=== PATIENT | female | born 1935 | race Caucasian/White ===

== ENCOUNTER 2016-10-31 12:41 | Outpatient (CLI) | payer MEDICARE, OTHER, MEDICAID ==
[2016-10-31 18:00] LABS: BASOPHILS % (AUTO) 0.4 %; EOSINOPHILS # (AUTO) 0.2 10^3/uL (0.0-0.7); EOSINOPHILS % (AUTO) 1.6 %; HCT - HEMATOCRIT 38.5 % (37.0-47.0); HGB - HEMOGLOBIN 12.8 g/dL (12.0-16.0); LYMPHOCYTES % (AUTO) 19.7 %; MEAN CORPUSCULAR HEMOGLOBIN 28.9 pg (27.0-31.0); MEAN CORPUSCULAR HGB CONC 33.3 g/dL (32.0-36.0); MEAN CORPUSCULAR VOLUME 86.7 fL (81.0-99.0); MEAN PLATELET VOLUME 10.5 fL (7.9-10.8); MONOCYTES # (AUTO) 0.9 10^3/uL (0.0-1.0); MONOCYTES % (AUTO) 8.7 %; NEUTROPHILS # (AUTO) 7.1 10^3/uL (1.5-6.6); NEUTROPHILS % (AUTO) 69.6 %; RED BLOOD COUNT 4.44 10^6/uL (4.20-5.40); RED CELL DISTRIBUTION WIDTH 13.2 % (12.0-15.0); UNCORRECTED WHITE BLOOD COUNT 10.2 x10^3/uL; WHITE BLOOD COUNT 10.2 x10^3/uL (4.8-10.8)
[2016-10-31 18:09] LABS: ALBUMIN/GLOBULIN RATIO 1.3 (1.0-2.2); BILIRUBIN,TOTAL 0.8 mg/dL (0.2-1.0); POTASSIUM 3.9 mmol/L (3.5-5.0); TOTAL PROTEIN 7.5 g/dL (6.7-8.2)
== END 2016-10-31 12:42 | disposition home or self-care (01) ==
LOC: LAB.F 12:41
PROVIDERS: ATTEND Physician Assistant Medical
DX: I10 Essential (primary) hypertension (principal)
CPT/HCPCS: 36415; 80053; 85025

== ENCOUNTER 2016-12-07 14:10 | Outpatient (CLI) | payer MEDICARE, OTHER ==
[2016-12-07 18:26] LABS: CHOL/HDL RATIO 2.5 (<4.4); CHOLESTEROL 160 mg/dL; HDL CHOLESTEROL 65 mg/dL; LDL/HDL RATIO 1.1 (<4.4); TRIGLYCERIDES 115 mg/dL; VLDL CHOLESTEROL 23 mg/dL
== END 2016-12-07 14:11 | disposition home or self-care (01) ==
LOC: LAB.F 14:10
PROVIDERS: ATTEND Internal Medicine
DX: E78.00 Pure hypercholesterolemia, unspecified (principal); R53.83 Other fatigue
CPT/HCPCS: 36415; 80061; 84443

== ENCOUNTER 2017-06-20 17:43 | Outpatient (CLI) | payer MEDICARE, OTHER | END 2017-06-20 17:44 | disposition critical access hospital (66) | LOC: EMS 17:43 | PROVIDERS: ATTEND Surgery | DX: R55 Syncope and collapse (principal); M25.552 Pain in left hip; R29.6 Repeated falls; S01.01XA Laceration without foreign body of scalp, initial encounter; W18.39XA Other fall on same level, initial encounter; Y93.01 Activity, walking, marching and hiking; Y92.009 Unspecified place in unspecified non-institutional (private) residence as the place of occurrence of the external cause | CPT/HCPCS: A0425; A0429 ==

== ENCOUNTER 2017-06-20 18:02 | Inpatient (IN) | payer MEDICARE, OTHER ==
[2017-06-20] MEDS ORDERED: BUFFERED LIDOCAINE 10 ML SYRINGE SUBQ STA (18:16)
[2017-06-20] MEDS ORDERED: MORPHINE 2 MG/ML CARPUJECT IVP STA ×2 (18:16→20:13)
[2017-06-20] MEDS ORDERED: TETANUS/DIPHTHERIA/PERTUSSIS 0.5 ML SYRINGE IM ONE (18:16)
--- NOTE | 2017-06-20 18:21 | ED Physician Documentation ---
History of Present Illness - Stated complaint Stated Complaint: SYNCOPE/HEAD INJ - History obtained from History obtained from: Patient, Family, EMS - History of Present Illness Timing: Other (81-year-old woman with history of Parkinson's has been having frequent syncopal episodes today. She had a syncopal episode in the garage, she does not remember going down, she must landed on her left hip it is very painful and she also has a cut on the back of her head.) Review of Systems Ten Systems: 10 systems reviewed and negative Constitutional: denies: Fever, Chills Cardiac: denies: Chest pain / pressure, Palpitations Respiratory: denies: Dyspnea, Cough GI: denies: Abdominal Pain, Nausea, Vomiting PD PAST MEDICAL HISTORY - Past Medical History Past Medical History: Yes Cardiovascular: Hypertension Neuro: Parkinson's - Allergies Allergies/Adverse Reactions: Allergies Allergy/AdvReac Type Severity Reaction Status Date / Time latex Allergy Intermediate Hives Verified 06/20/17 18:19 - Social History Does the pt smoke?: No Does the pt drink ETOH?: No Does the pt have substance abuse?: No - Family History Family history: reports: Non contributory PD ED PE NORMAL - Vitals Vital signs reviewed: Yes - General General: Alert and oriented X 3, No acute distress - HEENT HEENT: PERRL, EOMI, Other (2 cm laceration on the left side of the occiput) - Neck Neck: Supple, no meningeal sign, No bony TTP - Cardiac Cardiac: RRR, No murmur - Respiratory Respiratory: No respiratory distress, Clear bilaterally - Abdomen Abdomen: Normal bowel sounds, Soft, Non tender - Extremities Extremities: Other (Left hip is held flexed and is very tender and has a lot of pain with external rotation.) - Neuro Neuro: Alert and oriented X 3 Eye Opening: Spontaneous Motor: Obeys Commands Verbal: Oriented GCS Score: 15 - Psych Psych: Normal mood Results - Vitals Vitals: Vital Signs - 24 hr 06/20/17 06/20/17 06/20/17 18:09 20:35 20:36 Temperature 36.5 C Heart Rate 66 72 66 Respiratory 18 14 Rate Blood Pressure 162/75 H 158/75 H O2 Saturation 96 86 L 96 06/20/17 21:09 Temperature Heart Rate 73 Respiratory Rate Blood Pressure O2 Saturation 95 Oxygen O2 Source Nasal cannula - EKG (time done) 2117 Rate: Rate (enter#) (70) Rhythm: NSR [place]: Normal Intervals: Normal OR QRS: LVH Ischemia: Normal ST segments Computer interpretation: Agree with computer - Labs Labs: Laboratory Tests 06/20/17 06/20/17 06/20/17 18:35 18:35 18:35 WBC 10.9 H RBC 4.07 L Hgb 12.0 Hct 35.7 L MCV 87.8 MCH 29.5 MCHC 33.6 RDW 13.6 Plt Count 221 MPV 9.4 Neut # 8.9 H Lymph # 1.2 L [place] # 0.7 Eos # 0.1 Baso # 0.1 Absolute Nucleated RBC 0.00 Nucleated RBC % 0.0 PT 12.1 INR 1.1 Sodium Potassium Chloride Carbon Dioxide Anion Gap BUN Creatinine Estimated GFR (MDRD) Glucose Calcium Total Bilirubin AST ALT Alkaline Phosphatase Total Protein Albumin Globulin Albumin/Globulin Ratio Lipase Blood Type O POSITIVE Antibody Screen NEGATIVE 06/20/17 18:35 WBC RBC Hgb Hct MCV MCH MCHC RDW Plt Count MPV Neut # Lymph # [place] # Eos # Baso # Absolute Nucleated RBC Nucleated RBC % PT INR Sodium 136 Potassium 3.1 L Chloride 100 L Carbon Dioxide 26 Anion Gap 10.0 BUN 22 H Creatinine 0.9 Estimated GFR (MDRD) 60 L Glucose 126 H Calcium 9.5 Total Bilirubin 1.0 AST 23 ALT < 10 L Alkaline Phosphatase 57 Total Protein 7.0 Albumin 4.2 Globulin 2.8 Albumin/Globulin Ratio 1.5 Lipase 15 L Blood Type Antibody Screen - Rads (name of study) Headt CT Radiology: EMP read contemporaneously (NAD) B hips Radiology: EMP read contemporaneously (Left obturator ring fracture) Procedures - Laceration (location) Scalp occiput Length in cm: 2 Wound type: Linear Anesthesia: Lidocaine 1%, With bicarb Wound Preparation: Irrigated copiously NS Skin layer closure: [place] (6) Other: Tetanus booster given Complexity: Simple PD MEDICAL DECISION MAKING - ED course ED course: 81-year-old woman with recurrent syncopal episodes presents after a ground- level fall with significant left hip pain. X-ray demonstrates a pelvic fracture but no hip fracture. Head CT negative. Her scalp was stapled and I spoke with Dr. Fonseca, the on-call surgeon at 9 PM and he will see in consultation and I spoke with Dr. Walton the hospitalist for admission at 9:08 PM. Departure - Departure Disposition: 66 [facility] DC/Xfer Clinical Impression: Head injury consultation, Parkinson disease Syncope Qualifiers: Syncope type: unspecified Qualified Code(s): R55 - Syncope and collapse Scalp laceration Qualifiers: Encounter type: initial encounter Qualified Code(s): S01.01XA - Laceration without foreign body of scalp, initial encounter Pelvic fracture Qualifiers: Encounter type: initial encounter Pelvic bone location: pubis Sublocation of pubis: superior rim Fracture type: closed Laterality: left Qualified Code(s): S32.512A - Fracture of superior rim of left pubis, initial encounter for closed fracture Condition: Stable
[2017-06-20 18:41] LABS: BASOPHILS # (AUTO) 0.1 10^3/uL (0.0-0.1); BASOPHILS % (AUTO) 0.5 %; EOSINOPHILS # (AUTO) 0.1 10^3/uL (0.0-0.7); EOSINOPHILS % (AUTO) 1.1 %; LYMPHOCYTES # (AUTO) 1.2 10^3/uL (1.5-3.5); LYMPHOCYTES % (AUTO) 10.8 %; MEAN CORPUSCULAR HEMOGLOBIN 29.5 pg (27.0-31.0); MEAN CORPUSCULAR HGB CONC 33.6 g/dL (32.0-36.0); MEAN CORPUSCULAR VOLUME 87.8 fL (81.0-99.0); MEAN PLATELET VOLUME 9.4 fL (7.9-10.8); MONOCYTES # (AUTO) 0.7 10^3/uL (0.0-1.0); MONOCYTES % (AUTO) 6.1 %; NEUTROPHILS # (AUTO) 8.9 10^3/uL (1.5-6.6); NEUTROPHILS % (AUTO) 81.5 %; PLT - PLATELET COUNT 221 10^3/uL (130-450); RED BLOOD COUNT 4.07 10^6/uL (4.20-5.40); RED CELL DISTRIBUTION WIDTH 13.6 % (12.0-15.0); WHITE BLOOD COUNT 10.9 x10^3/uL (4.8-10.8)
[2017-06-20 18:46] LABS: INR 1.1 (0.8-1.2); PT - PROTHROMBIN TIME 12.1 secs (9.9-12.6)
[2017-06-20 19:01] LABS: ALBUMIN 4.2 g/dL (3.2-5.5); ALBUMIN/GLOBULIN RATIO 1.5 (1.0-2.2); ALKALINE PHOSPHATASE 57 IU/L (42-121); ALT ALANINE AMINOTRANSFERASE < 10 IU/L (10-60); AST ASPARTATE AMINOTRANSFERASE 23 IU/L (10-42); BUN - BLOOD UREA NITROGEN 22 mg/dL (6-20); CALCIUM 9.5 mg/dL (8.5-10.3); CARBON DIOXIDE - CO2 26 mmol/L (21-32); CHLORIDE 100 mmol/L (101-111); CREATININE 0.9 mg/dL (0.4-1.0); GFR - MDRD 60 (>89); GLUCOSE 126 mg/dL (70-100); LIPASE 15 U/L (22-51); SODIUM 136 mmol/L (135-145)
[2017-06-20] MEDS ORDERED: D5NS W/20 MEQ KCL 1,000 ML IV STA (19:04)
[2017-06-20] MEDS ORDERED: POTASSIUM CHLOR 10 MEQ/100 ML 10 MEQ/100 ML BAG IV ONE (19:05)
--- NOTE | 2017-06-20 19:35 | CT Report ---
EXAM: CT HEAD EXAM DATE: 06/20/2017 07:23 PM. CLINICAL HISTORY: Fall. Injured back of head against step. COMPARISON: None. TECHNIQUE: Multiaxial CT images were obtained from the foramen magnum to the vertex. Reformats: Coron al. IV contrast: None. In accordance with CT protocol optimization, one or more of the following dose reduction techniques w ere utilized for this exam: automated exposure control, adjustment of mA and/or KV based on patient s ize, or use of iterative reconstructive technique. FINDINGS: Parenchyma: No intraparenchymal hemorrhage. 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 Carr-white differentiation is distinct. Mild chronic microangiopathic white matter changes are evident. Extraaxial Spaces: Normal for age. No subdural or epidural collections identified. Ventricles: The ventricles and cortical sulci are enlarged, consistent with age-related tissue loss. Sinuses and orbits: Mucosal thickening in the sphenoid sinus, otherwise the imaged paranasal sinuses, orbits, and mastoids show no significant abnormality. Bones: No evidence of fracture or calvarial defect. Other: Small posterior scalp hematoma noted. IMPRESSION: Generalized age-related cortical atrophic changes without evidence of acute intracranial abnormality or skull fracture. [facility] Referring Provider Line: [phone] SITE ID: [id number]
--- NOTE | 2017-06-20 20:48 | XRAY Preliminary Report ---
Exam: XR HIPS 2V BILAT IMPRESSION: 1. Mildly displaced left obturator ring fractures. 2. Old right femoral fracture fixation with lateral heterotopic ossification. [facility] SITE ID: [id number]
--- NOTE | 2017-06-20 20:48 | XRAY Report ---
EXAM: BILATERAL HIP RADIOGRAPHY EXAM DATE: 06/20/2017 08:16 PM. CLINICAL HISTORY: Fall. Hip pain. COMPARISON: None. TECHNIQUE: 2 views each. FINDINGS: Bones: Mild displaced obturator ring fractures on the left. Prior right femoral fracture fixation. No other bony abnormalities identified. Right Hip: Normal. No dislocation. The hip joint space is preserved. Left Hip: Normal. No dislocation. The hip joint space is preserved. Soft Tissues: Heterotopic ossification on the right. IMPRESSION: 1. Mildly displaced left obturator ring fractures. 2. Old right femoral fracture fixation with lateral heterotopic ossification. [facility] Referring Provider Line: [phone] SITE ID: [id number]
[2017-06-20] MEDS ORDERED: ONDANSETRON 4 MG/2 ML VIAL IVP PRN (21:20)
[2017-06-20] MEDS ORDERED: ZOLPIDEM 5 MG TABLET PO PRN (21:20)
[2017-06-20] MEDS ORDERED: KETOROLAC 15 MG/ML VIAL IVP PRN (21:27)
[2017-06-20] MEDS: SODIUM CHLORIDE FLUSH 0.9% 10 ML SYRINGE IVP SCH (22:28)
[2017-06-20] MEDS: ACETAMINOPHEN 500 MG TABLET PO SCH (22:37)
[2017-06-20 23:15] LABS: BILIRUBIN,URINE NEGATIVE (NEGATIVE); GLUCOSE, URINE (UA) NEGATIVE (NEGATIVE); KETONES,URINE (UA) 15 mg/dL (NEGATIVE); LEUKOCYTE ESTERASE, URINE NEGATIVE (NEGATIVE); NITRITE,URINE NEGATIVE (NEGATIVE); OCCULT BLOOD,URINE NEGATIVE (NEGATIVE); PROTEIN,URINE TRACE mg/dL (NEGATIVE); UROBILINOGEN,URINE 0.2 (NORMAL) E.U./dL (NORMAL)
[2017-06-20 23:26] LABS: CLARITY,URINE CLEAR (CLEAR)
--- NOTE | 2017-06-21 03:11 | HISTORY & PHYSICAL EXAMINATION ---
DATE OF SERVICE: 06/20/2017 Physician: Michela Walton MD CHIEF COMPLAINT: Syncope and fall. SOURCE OF HISTORY: The patient was "foggy", poor historian. Her daughter at the bedside provided detailed history. HISTORY OF PRESENT ILLNESS: The patient is an 81-year-old, white female with past medical history of hypertension, osteoporosis and Parkinson disease. Two weeks ago, she was started on amantadine by her neurologist to better treat her parkinsonian symptoms. A few days after she started to take this new medication, she developed altered mental status, had difficulty concentrating, and the way her daughter describes she appeared "foggy" with her mentation. Usually she is alert, oriented, and a sharp thinker. Besides the altered mental status, the patient also started to develop falls. During the past 10 days, she fell 4 times. Before starting the amantadine, she did not have a significant history of falls or altered mental status and the start of these symptoms coincided with the new medication. Due to these problems, they actually called the patient's neurologist earlier on June 20, and were recommended to stop the amantadine. Beside the amantadine, the patient takes Sinemet and multiple other medications; however, they could not provide a medication list. Regarding the circumstances leading to admission, the daughter described that they were returning home and when the patient was getting out of the car, was trying to walk to the home and at that time she was observed with a blank stare, lost consciousness, twisted, holding onto her walker and fell, hitting the ground with the back of her head. She did develop a small laceration and was brought to the ER for further evaluation. Upon presentation to the ER, the patient was hemodynamically stable. She had minor laboratory abnormalities including potassium of 3.1, white blood cell count of 10.9, BUN 22. CT scan of the brain showed no acute intracranial abnormality. X-ray of the pelvis showed pelvic fracture which was described as mildly displaced left obturator ring fracture. Old right femoral fracture with fixation was also seen. At the ER, the patient received sutures for scalp laceration, received potassium replacement. The ER physician, Dr. Ryan, contacted the covering orthopedic surgeon, Dr. Bates, who will see the patient in consultation; however, most likely will recommend conservative management. REVIEW OF SYMPTOMS: The patient denied past history of cardiac problems, although she mentioned that once her heart was evaluated and some abnormality was found; however, she could not further specify. She denied shortness of breath, chest pain or palpitations. Did not report lymphedema. Denied nausea, vomiting or diarrhea, although reported recently worsening incontinence. Denied symptoms of dysuria. I completed 12-point review; other than the symptoms listed above at history of present illness, there was no complaint. PAST MEDICAL HISTORY: Hypertension, osteoporosis, Parkinson disease. OUTPATIENT MEDICATIONS: Medication list is not available. Code status was discussed with the patient. She wanted to be FULL CODE. FAMILY HISTORY: Negative for Parkinson disease. SOCIAL HISTORY: The patient lives with her daughter who assists her with activities of daily living. She ambulates with a walker. She is a nonsmoker, used to smoke in her 30s, but not since then. PRIMARY CARE PHYSICIAN: Andrew Costa ALLERGIES: LATEX. ER workup reviewed per electronic medical record. PHYSICAL EXAMINATION VITAL SIGNS: Temperature 36.5 Celsius, heart rate in the 70s, blood pressure 160/70, oxygen saturation 96% on room air. GENERAL: The patient is a well-developed, frail, elderly female who was not in distress. NEUROLOGIC: The patient had symmetric face. Her speech was slow. She had to stop multiple times and had somewhat stuttering speech; however, she answered my questions mostly appropriately. There was no focal lateralizing sign. PSYCHIATRIC: Appeared sedated, cooperative. CARDIOVASCULAR: S1, S2. Regular. No pathologic murmur. RESPIRATORY: Clear to auscultation without wheezes or crackles. ABDOMEN: Soft, benign, nontender. Normal bowel tones. LYMPHATIC: No lymphedema. MUSCULOSKELETAL: Left-sided pelvic tenderness and pain with decreased range of motion. ASSESSMENT AND PLAN, ACTIVE ISSUES/DIAGNOSES 1. Pelvic ring fracture on the left side, status post fall. For this problem , the patient will be evaluated by Orthopedic Surgery. For now, she appears more impaired than before and she was already impaired due to advanced age, Parkinson disease, needing to use a walker to ambulate, and requiring care and assistance with activities of daily living. Therefore, at this point it is fair to say that the patient does have self -care deficit due to her acute pelvic fracture. She is unable to ambulate and will not be able to take care of herself. After orthopedic surgery evaluation, she will need physical therapy, occupational therapy, and social work for discharge planning. She will likely need to discharge to an extended care facility for rehabilitation. Regarding this problem, we will order pain control/symptom control, provide supportive care. We will keep the patient on bedrest, nonweightbearing status until formal orthopedic evaluation. I suspect, however, that there will be conservative management. 2. Regarding fall and syncope, most likely this is medication induced secondary to amantadine. At the same time, to avoid premature closure, we are going to check urinalysis, we will monitor the patient on telemetry and check an echocardiogram. Notably, CT scan of the brain was negative, showed no stroke. 3. Hypokalemia, potassium was already replaced in the ER. PLAN AND ORDERS: Patient is getting admitted as inpatient. The above problems will be addressed as listed above. In addition, the patient will receive DVT prophylaxis. Further plan will depend on the clinical course. ATTESTATION: I certify in good chiqui that this patient will need to be hospitalized for more than 48 hours; however, it is reasonable to expect that she gets discharged within 96 hours to another facility or back to her home. Time spent in the care of this patient was 50 minutes. cc: Andrew Costa MD TD: 06/21/2017 03:07 [id number]
[2017-06-21] MEDS: SODIUM CHLORIDE FLUSH 0.9% 10 ML SYRINGE IVP SCH ×3 (04:34→21:46)
[2017-06-21] MEDS: ACETAMINOPHEN 500 MG TABLET PO SCH ×3 (07:19→21:38)
[2017-06-21] MEDS ORDERED: POTASSIUM CHLORIDE 20 MEQ TABLET PO ONE (07:44)
[2017-06-21] MEDS: MORPHINE 2 MG/ML CARPUJECT IVP PRN (08:34)
[2017-06-21] MEDS: oxyCODONE 5 MG TABLET PO PRN ×4 (08:35→21:41)
[2017-06-21] MEDS: HEPARIN 5,000 UNIT/ML VIAL SUBQ SCH ×2 (08:35→21:34)
[2017-06-21] MEDS: POLYETHYLENE GLYCOL 3350 17 GM PACKET PO SCH (08:36)
[2017-06-21 09:47] LABS: BASOPHILS % (AUTO) 0.3 %; EOSINOPHILS # (AUTO) 0.1 10^3/uL (0.0-0.7); EOSINOPHILS % (AUTO) 0.5 %; HGB - HEMOGLOBIN 10.4 g/dL (12.0-16.0); LYMPHOCYTES # (AUTO) 1.3 10^3/uL (1.5-3.5); LYMPHOCYTES % (AUTO) 10.1 %; MEAN CORPUSCULAR HGB CONC 34.3 g/dL (32.0-36.0); MEAN CORPUSCULAR VOLUME 87.5 fL (81.0-99.0); MEAN PLATELET VOLUME 9.3 fL (7.9-10.8); MONOCYTES # (AUTO) 0.7 10^3/uL (0.0-1.0); MONOCYTES % (AUTO) 5.6 %; NEUTROPHILS % (AUTO) 83.5 %; PLT - PLATELET COUNT 171 10^3/uL (130-450); RED BLOOD COUNT 3.48 10^6/uL (4.20-5.40); RED CELL DISTRIBUTION WIDTH 13.6 % (12.0-15.0); WHITE BLOOD COUNT 13.1 x10^3/uL (4.8-10.8)
[2017-06-21 09:58] LABS: ALBUMIN 3.4 g/dL (3.2-5.5); ALBUMIN/GLOBULIN RATIO 1.4 (1.0-2.2); ALKALINE PHOSPHATASE 49 IU/L (42-121); ALT ALANINE AMINOTRANSFERASE < 10 IU/L (10-60); AST ASPARTATE AMINOTRANSFERASE 25 IU/L (10-42); BILIRUBIN,TOTAL 1.2 mg/dL (0.2-1.0); BUN - BLOOD UREA NITROGEN 23 mg/dL (6-20); CALCIUM 8.6 mg/dL (8.5-10.3); CARBON DIOXIDE - CO2 26 mmol/L (21-32); CHLORIDE 100 mmol/L (101-111); CREATININE 0.9 mg/dL (0.4-1.0); GFR - MDRD 60 (>89); GLUCOSE 129 mg/dL (70-100); MAGNESIUM 1.5 mg/dL (1.7-2.8); SODIUM 134 mmol/L (135-145); TOTAL PROTEIN 5.8 g/dL (6.7-8.2)
--- NOTE | 2017-06-21 14:24 | PROVIDER PROGRESS NOTE ---
Subjective - Prog Note Date Prog Note Date: 06/21/17 - Subjective Pt reports feeling: Improved Subjective: pt state she feel better than yesterday. No fever, chill, cough, chest pain, shortness of breath. Current Medications - Current Medications Current Medications: Active Medications Acetaminophen (Tylenol) 1,000 mg PO TID [facility] Last Admin: 06/21/17 12:50 Dose: 1,000 mg Atorvastatin Calcium (Lipitor) 10 mg PO 2100 [facility] Carbidopa/Levodopa (Sinemet 25 Mg/250 Mg) tab PO QID [facility] Heparin Sodium (Porcine) () 5,000 unit SUBQ BID [facility] Last Admin: 06/21/17 08:35 Dose: 5,000 unit Hydralazine HCl (Apresoline) 25 mg PO TID [facility] Ketorolac Tromethamine (Toradol Inj) 15 mg IVP BID PRN PRN Reason: PAIN Stop: 06/25/17 21:59 Last Admin: 06/21/17 02:17 Dose: 15 mg Lisinopril (Zestril) 20 mg PO DAILY [facility] Magnesium Oxide (Mag Ox) 400 mg PO ONCE [facility] Morphine Sulfate (Morphine (Carpuject)) 2 mg IVP Q2HR PRN PRN Reason: Pain 8 to 10 Last Admin: 06/21/17 08:34 Dose: 2 mg Ondansetron HCl (Zofran Inj) 4 mg IVP Q6HR PRN PRN Reason: Nausea / Vomiting Oxycodone HCl (Roxicodone) 5 mg PO Q4HR PRN PRN Reason: Pain 5 to 7 Last Admin: 06/21/17 12:50 Dose: 5 mg Polyethylene Glycol (Miralax) 17 gm PO DAILY [facility] Last Admin: 06/21/17 08:36 Dose: 17 gm Potassium Chloride (Micro-K) 10 meq PO TID [facility] Sodium Chloride (Normal Saline Flush 0.9%) 10 ml IVP PRN PRN PRN Reason: NEEDED PER PROVIDER ORDERS Sodium Chloride (Normal Saline Flush 0.9%) 10 ml IVP Q8HR [facility] Last Admin: 06/21/17 12:51 Dose: 10 ml Triamterene/HCTZ (Dyazide) cap PO DAILY [facility] Zolpidem Tartrate (Ambien) 5 mg PO QPM PRN PRN Reason: Insomnia Atorvastatin [Lipitor] 10 mg PO 2100 06/21/17 Carbidopa/Levodopa [Carbidopa-Levodopa 25-250 Tab] 1 each PO QID 06/21/17 Lisinopril [Lisinopril] 20 mg PO DAILY 06/21/17 Potassium Chloride 10 meq PO TID 06/21/17 Triamterene/Hydrochlorothiazid [Triamterene-Hctz 37.5-25 mg Cp] 1 each PO DAILY 06/21/17 hydrALAZINE [Apresoline] 25 mg PO TID 06/21/17 Objective - Vital Signs/Intake & Output Reviewed Vital Signs: Yes Vital Signs: Vital Signs x48h Temp Pulse Resp BP Pulse Ox 06/21/17 13:54 36.3 C L 66 18 170/70 H 96 Intake & Output: Intake & Output 06/18/17 06/19/17 06/20/17 06/21/17 23:59 23:59 23:59 23:59 Intake Total 100 1430 Output Total 450 Balance 100 980 - Objective General Appearance: positive: No acute distress, Alert. negative: Lethargic Eyes Bilateral: positive: Normal inspection, PERRL, No lid inflammation, Conjunctivae nml ENT: positive: ENT inspection nml, Pharynx nml, No signs of dehydration. negative: Purulent nasal drainage, Pharyngeal erythema, Oral lesions Neck: positive: Nml inspection, Thyroid nml, No JVD, Trachea midline. negative : Thyromegaly, Lymphadenopathy (R), Lymphadenopathy (L), Stiff neck, Carotid bruit, Swelling/bruising, Tracheal deviation Respiratory: positive: Chest non-tender, No respiratory distress, Breath sounds nml. negative: Wheezes, Rales, Rhonchi Cardiovascular: positive: Regular rate & rhythm, No murmur, No gallop. negative : Irregularly irregular, Extrasystoles, Tachycardia, Bradycardia, Systolic murmur, Diastolic murmur Peripheral Pulses: 2+ Radial (R), 2+ Radial (L), 2+ Dorsalis pedis (R), 2+ Dorsalis pedis (L) Abdomen: positive: Non-tender, No organomegaly, Nml bowel sounds, No distention. negative: Tenderness, Guarding, Rebound Back: positive: Nml inspection. negative: CVA tenderness (R), CVA tenderness (L ) Skin: positive: Color nml, No rash, Warm, Dry. negative: Cyanosis, Diaphoresis , Pallor Extremities: positive: Non-tender, Full ROM, Nml appearance. negative: Calf tenderness, Joint swelling, Ayala's sign/cords Neurologic/Psychiatric: positive: Sensation nml, Mood/affect nml. negative: Sensory loss, Facial droop, Slurred/abnml speech, Depressed mood/affect - Lab Results Fish Bones: 06/21/17 09:35 06/21/17 09:35 Other Labs: Lab Results x24hrs 06/21/17 06/21/17 06/20/17 Range/Units 09:35 09:35 23:00 WBC 13.1 H (4.8-10.8) x10^3/uL RBC 3.48 L (4.20-5.40) 10^6/uL Hgb 10.4 L (12.0-16.0) g/dL Hct 30.4 L (37.0-47.0) % MCV 87.5 (81.0-99.0) fL MCH 30.0 (27.0-31.0) pg MCHC 34.3 (32.0-36.0) g/dL RDW 13.6 (12.0-15.0) % Plt Count 171 (130-450) 10^3/uL MPV 9.3 (7.9-10.8) fL Neut # 11.0 H (1.5-6.6) 10^3/uL Lymph # 1.3 L (1.5-3.5) 10^3/uL [place] # 0.7 (0.0-1.0) 10^3/uL Eos # 0.1 (0.0-0.7) 10^3/uL Baso # 0.0 (0.0-0.1) 10^3/uL Absolute Nucleated RBC 0.00 x10^3/uL Nucleated RBC % 0.0 /100WBC Sodium 134 L (135-145) mmol/L Potassium 3.2 L (3.5-5.0) mmol/L Chloride 100 L (101-111) mmol/L Carbon Dioxide 26 (21-32) mmol/L Anion Gap 8.0 (6-13) BUN 23 H (6-20) mg/dL Creatinine 0.9 (0.4-1.0) mg/dL Estimated GFR (MDRD) 60 L (>89) Glucose 129 H (70-100) mg/dL Calcium 8.6 (8.5-10.3) mg/dL Magnesium 1.5 L (1.7-2.8) mg/dL Total Bilirubin 1.2 H (0.2-1.0) mg/dL AST 25 (10-42) IU/L ALT < 10 L (10-60) IU/L Alkaline Phosphatase 49 (42-121) IU/L Total Protein 5.8 L (6.7-8.2) g/dL Albumin 3.4 (3.2-5.5) g/dL Globulin 2.4 (2.1-4.2) g/dL Albumin/Globulin Ratio 1.4 (1.0-2.2) Urine Color YELLOW Urine Clarity CLEAR (CLEAR) Urine pH 7.0 (5.0-7.5) PH Ur Specific [place] 1.025 (1.002-1.030) Urine Protein TRACE (NEGATIVE) mg/dL Urine Glucose (UA) NEGATIVE (NEGATIVE) mg/dL Urine Ketones 15 H (NEGATIVE) mg/dL Urine Occult Blood NEGATIVE (NEGATIVE) Urine Nitrite NEGATIVE (NEGATIVE) Urine Bilirubin NEGATIVE (NEGATIVE) Urine Urobilinogen 0.2 (NORMAL) (NORMAL) E.U./dL Ur Leukocyte Esterase NEGATIVE (NEGATIVE) Ur Microscopic Review NOT INDICATED Urine Culture Comments NOT INDICATED Assessment/Plan - Problem List (1) Pelvic fracture Impression: consult with orthopedics, will follow up pain control PT/OT evaluation and treatment Qualifiers: Encounter type: initial encounter Pelvic bone location: pubis Sublocation of pubis: superior rim Fracture type: closed Laterality: left Qualified Code(s): S32.512A - Fracture of superior rim of left pubis, initial encounter for closed fracture (2) Fall Impression: fall precaution consult social work, follow up consult with PT/OT, follow up (3) Syncope Impression: pt state the fall happened after she take the new Parkinson medication, and it cause her dizziness and pre-syncope/syncope ECHO, follow up tele, vital monitor EKG PRN (4) HTN (hypertension) Impression: resume home meds vital monitor (5) Parkinson disease Impression: resume home meds Sinemet, it seems pt can tolerate the meds per family state. (6) Hypokalemia Impression: chronic, resume potassium replacement of potassium recheck lab, follow up
[2017-06-21] MEDS ORDERED: MAGNESIUM OXIDE 400 MG TABLET PO SCH (15:00)
[2017-06-21] MEDS: POTASSIUM CHLORIDE 10 MEQ CAPSULE PO SCH ×2 (15:06→21:43)
[2017-06-21] MEDS: hydrALAZINE 25 MG TABLET PO SCH ×2 (15:06→21:42)
[2017-06-21] MEDS: TRIAMT/HCTZ 37.5 MG/25 MG CAPSULE PO SCH (15:07)
[2017-06-21] MEDS: CARBIDOPA/LEVODOPA 25 MG/250 MG TABLET PO SCH ×2 (17:09→21:42)
[2017-06-21] MEDS: ATORVASTATIN 10 MG TABLET PO SCH (21:41)
[2017-06-22] MEDS: oxyCODONE 5 MG TABLET PO PRN ×3 (04:52→16:54)
[2017-06-22] MEDS: SODIUM CHLORIDE FLUSH 0.9% 10 ML SYRINGE IVP SCH ×3 (04:52→20:23)
[2017-06-22] MEDS: hydrALAZINE 25 MG TABLET PO SCH ×3 (04:52→21:20)
[2017-06-22] MEDS: ACETAMINOPHEN 500 MG TABLET PO SCH ×3 (04:52→21:21)
[2017-06-22] MEDS: POTASSIUM CHLORIDE 10 MEQ CAPSULE PO SCH ×3 (04:52→21:22)
[2017-06-22 05:06] LABS: BASOPHILS # (AUTO) 0.1 10^3/uL (0.0-0.1); BASOPHILS % (AUTO) 0.7 %; EOSINOPHILS # (AUTO) 0.4 10^3/uL (0.0-0.7); EOSINOPHILS % (AUTO) 3.6 %; HGB - HEMOGLOBIN 10.7 g/dL (12.0-16.0); LYMPHOCYTES # (AUTO) 1.6 10^3/uL (1.5-3.5); LYMPHOCYTES % (AUTO) 14.9 %; MEAN CORPUSCULAR HEMOGLOBIN 30.2 pg (27.0-31.0); MEAN CORPUSCULAR HGB CONC 34.3 g/dL (32.0-36.0); MEAN CORPUSCULAR VOLUME 87.9 fL (81.0-99.0); MEAN PLATELET VOLUME 9.5 fL (7.9-10.8); MONOCYTES # (AUTO) 0.7 10^3/uL (0.0-1.0); MONOCYTES % (AUTO) 6.1 %; NEUTROPHILS # (AUTO) 8.2 10^3/uL (1.5-6.6); NEUTROPHILS % (AUTO) 74.7 %; PLT - PLATELET COUNT 162 10^3/uL (130-450); RED BLOOD COUNT 3.55 10^6/uL (4.20-5.40); RED CELL DISTRIBUTION WIDTH 13.8 % (12.0-15.0); WHITE BLOOD COUNT 10.9 x10^3/uL (4.8-10.8)
[2017-06-22 05:52] LABS: ALBUMIN 3.2 g/dL (3.2-5.5); ALBUMIN/GLOBULIN RATIO 1.2 (1.0-2.2); ALKALINE PHOSPHATASE 46 IU/L (42-121); ALT ALANINE AMINOTRANSFERASE < 10 IU/L (10-60); AST ASPARTATE AMINOTRANSFERASE 23 IU/L (10-42); BILIRUBIN,TOTAL 0.9 mg/dL (0.2-1.0); BUN - BLOOD UREA NITROGEN 21 mg/dL (6-20); CALCIUM 8.5 mg/dL (8.5-10.3); CARBON DIOXIDE - CO2 25 mmol/L (21-32); CHLORIDE 99 mmol/L (101-111); GFR - MDRD 53 (>89); GLUCOSE 99 mg/dL (70-100); SODIUM 133 mmol/L (135-145); TOTAL PROTEIN 5.8 g/dL (6.7-8.2)
[2017-06-22] MEDS: TRIAMT/HCTZ 37.5 MG/25 MG CAPSULE PO SCH (08:37)
[2017-06-22] MEDS: CARBIDOPA/LEVODOPA 25 MG/250 MG TABLET PO SCH ×4 (08:37→21:19)
[2017-06-22] MEDS: POLYETHYLENE GLYCOL 3350 17 GM PACKET PO SCH (08:37)
[2017-06-22] MEDS: LISINOPRIL 20 MG TABLET PO SCH (08:37)
[2017-06-22] MEDS: SODIUM CHLORIDE FLUSH 0.9% 10 ML SYRINGE IVP PRN ×3 (08:42→11:09)
[2017-06-22] MEDS: MORPHINE 2 MG/ML CARPUJECT IVP PRN ×2 (10:51→20:23)
[2017-06-22] MEDS: ENOXAPARIN 40 MG/0.4 ML SYRINGE SUBQ SCH (11:02)
--- NOTE | 2017-06-22 16:17 | CONSULTATION NOTE ---
Referring Provider Name of Referring Provider:: shahana Consult Date: 06/21/17 (Dictated Yesterday bu apparently not in [facility]) Chief Complaint - Chief Complaint Chief Complaint: Pain left groin and back (today) History of Present Illness - Admitted From Admitted From:: ER - History Obtained From History obtained from: Patient and daugher in law Exam Limitations: Unable to move without pain - History of Present Illness HPI Comment/Other: Pt fell over (does not recall, [id number] witnessed from a distance.) History - Past Medical History Cardiovascular: reports: None, Hypertension Respiratory: reports: None Neuro: reports: Parkinson's Endocrine/Autoimmune: reports: None GI: reports: None 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 : reports: None HEENT: reports: Other Psych: reports: None Musculoskeletal: reports: Osteoporosis, Other Derm: reports: None Other Past Medical History: hearing aids; dentures; left shoulder pain - Past Surgical History Ortho: reports: Hip replacement, Other Other past surgical history: Recent right hip fracture fixed by Dr Le with IM device Meds/Allgy - Home Medications Home Medications: Ambulatory Orders Medication Instructions Recorded Confirmed Atorvastatin [Lipitor] 10 mg PO 2100 06/21/17 06/21/17 Carbidopa/Levodopa 1 each PO QID 06/21/17 06/21/17 [Carbidopa-Levodopa 25-250 Tab] Lisinopril [Lisinopril] 20 mg PO DAILY 06/21/17 06/21/17 Potassium Chloride 10 meq PO TID 06/21/17 06/21/17 Triamterene/Hydrochlorothiazid 1 each PO DAILY 06/21/17 06/21/17 [Triamterene-Hctz 37.5-25 mg Cp] hydrALAZINE [Apresoline] 25 mg PO TID 06/21/17 06/21/17 - Allergies Allergies/Adverse Reactions: Allergies Allergy/AdvReac Type Severity Reaction Status Date / Time latex Allergy Intermediate Hives Verified 06/20/17 18:19 Exam - Vital Signs Vital Signs: Vital Signs x48h Temp Pulse Pulse Resp BP Pulse Ox 06/22/17 13:11 36.5 C 85 20 141/68 H 94 06/22/17 08:45 37.0 C 94 20 146/60 H 93 - Physical Exam General Appearance: positive: Lethargic Extremities: positive: Other (Moderate to severe pain with rotation of left LE. Tender over pubic symphysis. Today having pain and ? tenderness over left sacrum Radiographs of pelvis and left hip and right hip show left pubic rami fractures, no femoral neck fracture, no apparent sacral fractures. Patient unable to position for standard views. Reading not reliable.) Conclusion/Plan - Diagnosis Diagnosis: Left pubic ramus fracture, cannot rule out sacral fracture. Plan: Obtain CT scan of pelvis. If sacrum fractured, then progress to resume gait will be slow. - Lab Results Fish Bones: 06/22/17 04:35 06/22/17 04:35
[2017-06-22] MEDS: DOCUSATE SODIUM 250 MG CAPSULE PO SCH (17:04)
[2017-06-22] MEDS: SENNA 8.6 MG TABLET PO SCH ×3 (17:06→21:25)
--- NOTE | 2017-06-22 18:54 | PROVIDER PROGRESS NOTE ---
Subjective - Prog Note Date Prog Note Date: 06/22/17 Prog Note Time: 12:00 - Subjective Pt reports feeling: No change Subjective: Patient is able to answer a few simple questions and offers no complaints unless attempting to move. She denies SOB, chest pain, N/V or a new cough when asked. Daughter is at her bedside for this exam. Current Medications - Current Medications Current Medications: Active Medications Acetaminophen (Tylenol) 1,000 mg PO TID [facility] Last Admin: 06/22/17 21:21 Dose: 1,000 mg Atorvastatin Calcium (Lipitor) 10 mg PO 2100 [facility] Last Admin: 06/22/17 21:17 Dose: 10 mg Bacitracin (Bacitracin) 1 packet TOP BID [facility] Last Admin: 06/22/17 21:23 Dose: Not Given Carbidopa/Levodopa (Sinemet 25 Mg/250 Mg) 1 tab PO QID [facility] Last Admin: 06/22/17 21:19 Dose: 1 tab Docusate Sodium (Colace 250mg Capsule) 250 - 500 mg PO DAILY [facility] Last Admin: 06/22/17 17:04 Dose: 250 mg Enoxaparin Sodium (Lovenox) 40 mg SUBQ DAILY [facility] Last Admin: 06/22/17 11:02 Dose: 40 mg Hydralazine HCl (Apresoline) 25 mg PO TID [facility] Last Admin: 06/22/17 21:20 Dose: 25 mg Lisinopril (Zestril) 20 mg PO DAILY [facility] Last Admin: 06/22/17 08:37 Dose: 20 mg Morphine Sulfate (Morphine (Carpuject)) 2 mg IVP Q2HR PRN PRN Reason: Pain 8 to 10 Last Admin: 06/22/17 20:23 Dose: 2 mg Ondansetron HCl (Zofran Inj) 4 mg IVP Q6HR PRN PRN Reason: Nausea / Vomiting Oxycodone HCl (Roxicodone) 5 mg PO Q4HR PRN PRN Reason: Pain 5 to 7 Last Admin: 06/22/17 16:54 Dose: 5 mg Polyethylene Glycol (Miralax) 17 gm PO DAILY [facility] Last Admin: 06/22/17 08:37 Dose: 17 gm Potassium Chloride (Micro-K) 10 meq PO TID [facility] Last Admin: 06/22/17 21:22 Dose: 10 meq Senna (Senokot) 8.6 - 17.2 mg PO DAILY [facility] Last Admin: 06/22/17 17:06 Dose: 8.6 mg Senna (Senokot) 17.2 - 25.8 mg PO Q6H [facility] Stop: 06/23/17 10:01 Last Admin: 06/22/17 21:25 Dose: 8.6 mg Sodium Chloride (Normal Saline Flush 0.9%) 10 ml IVP PRN PRN PRN Reason: NEEDED PER PROVIDER ORDERS Last Admin: 06/22/17 11:09 Dose: 10 ml Sodium Chloride (Normal Saline Flush 0.9%) 10 ml IVP Q8HR [facility] Last Admin: 06/22/17 20:23 Dose: 10 ml Triamterene/HCTZ (Dyazide) 1 cap PO DAILY [facility] Last Admin: 06/22/17 08:37 Dose: 1 cap Zolpidem Tartrate (Ambien) 5 mg PO QPM PRN PRN Reason: Insomnia Atorvastatin [Lipitor] 10 mg PO 2100 06/21/17 Carbidopa/Levodopa [Carbidopa-Levodopa 25-250 Tab] 1 each PO QID 06/21/17 Lisinopril [Lisinopril] 20 mg PO DAILY 06/21/17 Potassium Chloride 10 meq PO TID 06/21/17 Triamterene/Hydrochlorothiazid [Triamterene-Hctz 37.5-25 mg Cp] 1 each PO DAILY 06/21/17 hydrALAZINE [Apresoline] 25 mg PO TID 06/21/17 Objective - Vital Signs/Intake & Output Reviewed Vital Signs: Yes Vital Signs: Vital Signs x48h Temp Pulse Resp BP BP Pulse Ox 06/22/17 17:00 36.4 C L 88 20 138/68 H 96 06/22/17 13:11 36.5 C 85 20 141/68 H 94 Intake & Output: Intake & Output 06/19/17 06/20/17 06/21/17 06/22/17 23:59 23:59 23:59 23:59 Intake Total 100 2390 850 Output Total 1100 1450 Balance 100 1290 -600 - Objective General Appearance: positive: No acute distress, Alert Eyes Bilateral: positive: Normal inspection, PERRL ENT: positive: ENT inspection nml, Pharynx nml, No signs of dehydration Neck: positive: Nml inspection, Thyroid nml, No JVD Respiratory: positive: Chest non-tender, No respiratory distress, Other ( diminished with scattered crackles bilaterally.) Cardiovascular: positive: Regular rate & rhythm, No gallop Peripheral Pulses: 1+ Radial (R), 1+ Radial (L) Abdomen: positive: Non-tender, No organomegaly, Nml bowel sounds, Other (rounded , soft) Back: positive: Nml inspection Skin: positive: No rash, Warm, Dry Extremities: positive: Non-tender, Full ROM, Nml appearance, No pedal edema, Joint swelling Neurologic/Psychiatric: positive: Disoriented to place, Disoriented to time, Weakness, Sensory loss, Slurred/abnml speech, Depressed mood/affect, Other ( baseline deficits.) Reflexes: Bicep (R): 2+, Bicep (L): 2+ - Lab Results Fish Bones: 06/22/17 04:35 06/22/17 04:35 Other Labs: Lab Results x24hrs 06/22/17 06/22/17 Range/Units 04:35 04:35 WBC 10.9 H (4.8-10.8) x10^3/uL RBC 3.55 L (4.20-5.40) 10^6/uL Hgb 10.7 L (12.0-16.0) g/dL Hct 31.2 L (37.0-47.0) % MCV 87.9 (81.0-99.0) fL MCH 30.2 (27.0-31.0) pg MCHC 34.3 (32.0-36.0) g/dL RDW 13.8 (12.0-15.0) % Plt Count 162 (130-450) 10^3/uL MPV 9.5 (7.9-10.8) fL Neut # 8.2 H (1.5-6.6) 10^3/uL Lymph # 1.6 (1.5-3.5) 10^3/uL Sac # 0.7 (0.0-1.0) 10^3/uL Eos # 0.4 (0.0-0.7) 10^3/uL Baso # 0.1 (0.0-0.1) 10^3/uL Absolute Nucleated RBC 0.00 x10^3/uL Nucleated RBC % 0.0 /100WBC Sodium 133 L (135-145) mmol/L Potassium 4.3 (3.5-5.0) mmol/L Chloride 99 L (101-111) mmol/L Carbon Dioxide 25 (21-32) mmol/L Anion Gap 9.0 (6-13) BUN 21 H (6-20) mg/dL Creatinine 1.0 (0.4-1.0) mg/dL Estimated GFR (MDRD) 53 L (>89) Glucose 99 (70-100) mg/dL Calcium 8.5 (8.5-10.3) mg/dL Total Bilirubin 0.9 (0.2-1.0) mg/dL AST 23 (10-42) IU/L ALT < 10 L (10-60) IU/L Alkaline Phosphatase 46 (42-121) IU/L Total Protein 5.8 L (6.7-8.2) g/dL Albumin 3.2 (3.2-5.5) g/dL Globulin 2.6 (2.1-4.2) g/dL Albumin/Globulin Ratio 1.2 (1.0-2.2) - Diagnostic Imaging Diagnostic Imaging Results: positive: Prelim report reviewed, Final report reviewed Assessment/Plan - Problem List (1) Total self-care deficit Impression: Patient was previously residing with daughter and son-in-law with minimal assistance. She has been steadily declining. Plan: SNF placement is likely, and pending. (2) Fall Impression: Patient had a witnessed fall per daughter report during today's exam. Patient has no open abrasions/lacerations from this fall, except hit the back of her head and had minimal bleeding. Head imaging at the time of admission was all negative. Plan: Patient remains on fall precautions. Dr. Moore, ortho surgery was consulted and plans to visit. (3) Syncope and collapse Impression: It is believed that the patient lost consciousness, then fell as per daughter's report. An echocardiogram was completed. Plan: Continue fall precautions and an order for PT when pain is controlled. (4) Parkinson disease Impression: Patient has a long standing history of this and takes medications at home. Within the past 2 weeks, patient was prescribed Namenda which is believed to have led to this fall. Patient's mental status was steadily declining since starting this medication. Plan: Namenda was stopped, and we continue with other home medications. Monitor mental status. (5) Fracture of left inferior pubic ramus Impression: Dr. Bates, ortho surgery consulted and requests a pelvis CT to rule out a sacral fracture which would entail a long rehabilitation. Plan: PT to assist with proper ambulation, pain control.
--- NOTE | 2017-06-22 21:00 | CT Preliminary Report ---
Exam: CT PELVIS W/O IMPRESSION: 1. H-type sacral fracture. 2. Left obturator ring fractures. 3. Sigmoid diverticulosis. [facility] SITE ID: [id number]
--- NOTE | 2017-06-22 21:00 | CT Report ---
EXAM: CT BONY PELVIS WITHOUT CONTRAST EXAM DATE: 06/22/2017 08:41 PM. CLINICAL HISTORY: Assess for sacral fracture. COMPARISON: 06/30/2017 radiographs. TECHNIQUE: Thin-section axial images were acquired of the pelvis without contrast. Post-processing: C oronal and sagittal reformats. Other: None. In accordance with CT protocol optimization, one or more of the following dose reduction techniques w ere utilized for this exam: automated exposure control, adjustment of mA and/or KV based on patient s ize, or use of iterative reconstructive technique. FINDINGS: Bones: The patient has a H-type sacral fracture with a transverse component through the S2 vertebral body. The left sacral alar fracture line is zone 2 with some displacement of an anterior cortical fra gment. Moderate osteopenia is present. The patient has left obturator ring fractures at the left ante rior pubic root, the left parasymphyseal pubis, and the left inferior pubic ramus. These are mildly d isplaced. A right dynamic hip screw is present. Sacroiliac Joints: No widening, erosions, or sclerosis. Symphysis Pubis: Unremarkable. Right Hip: Mild osseous hyperaeration is present. Left Hip: Mild osteophyte formation is present. Musculature: Normal. No fatty atrophy. Pelvic Cavity: The visualized bowel, bladder, and reproductive organs are unremarkable on this noncon trast exam. Other: Arterial calcifications indicate atherosclerosis. Sigmoid diverticulosis is present. 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 IMPRESSION: 1. H-type sacral fracture. 2. Left obturator ring fractures. 3. Sigmoid diverticulosis. [facility] Referring Provider Line: [phone] SITE ID: [id number]
[2017-06-22] MEDS: ATORVASTATIN 10 MG TABLET PO SCH (21:17)
[2017-06-22] MEDS: BACITRACIN OINT TOP SCH (21:23)
[2017-06-23] MEDS ORDERED: KETOROLAC 15 MG/ML VIAL IVP PRN (01:36)
[2017-06-23] MEDS ORDERED: LABETALOL 20 MG/4 ML SYRINGE IVP SCH (01:38)
[2017-06-23] MEDS: SODIUM CHLORIDE FLUSH 0.9% 10 ML SYRINGE IVP PRN ×2 (02:03→10:13)
[2017-06-23 02:15] LABS: BILIRUBIN,URINE NEGATIVE (NEGATIVE); GLUCOSE, URINE (UA) NEGATIVE (NEGATIVE); KETONES,URINE (UA) NEGATIVE (NEGATIVE); LEUKOCYTE ESTERASE, URINE SMALL (NEGATIVE); NITRITE,URINE NEGATIVE (NEGATIVE); OCCULT BLOOD,URINE SMALL (NEGATIVE); PROTEIN,URINE NEGATIVE (NEGATIVE); UROBILINOGEN,URINE 0.2 (NORMAL) E.U./dL (NORMAL)
[2017-06-23 02:20] LABS: ALBUMIN 3.4 g/dL (3.2-5.5); ALBUMIN/GLOBULIN RATIO 1.1 (1.0-2.2); ALKALINE PHOSPHATASE 55 IU/L (42-121); ALT ALANINE AMINOTRANSFERASE < 10 IU/L (10-60); AST ASPARTATE AMINOTRANSFERASE 21 IU/L (10-42); BASOPHILS # (AUTO) 0.1 10^3/uL (0.0-0.1); BASOPHILS % (AUTO) 0.5 %; BILIRUBIN,TOTAL 0.8 mg/dL (0.2-1.0); BUN - BLOOD UREA NITROGEN 17 mg/dL (6-20); CALCIUM 8.7 mg/dL (8.5-10.3); CARBON DIOXIDE - CO2 23 mmol/L (21-32); CHLORIDE 102 mmol/L (101-111); CREATININE 0.9 mg/dL (0.4-1.0); EOSINOPHILS # (AUTO) 0.3 10^3/uL (0.0-0.7); EOSINOPHILS % (AUTO) 2.3 %; GFR - MDRD 60 (>89); HGB - HEMOGLOBIN 10.9 g/dL (12.0-16.0); LYMPHOCYTES # (AUTO) 1.4 10^3/uL (1.5-3.5); LYMPHOCYTES % (AUTO) 11.1 %; MEAN CORPUSCULAR HGB CONC 34.2 g/dL (32.0-36.0); MEAN CORPUSCULAR VOLUME 87.7 fL (81.0-99.0); MEAN PLATELET VOLUME 9.5 fL (7.9-10.8); MONOCYTES # (AUTO) 0.9 10^3/uL (0.0-1.0); MONOCYTES % (AUTO) 7.4 %; NEUTROPHILS # (AUTO) 9.8 10^3/uL (1.5-6.6); NEUTROPHILS % (AUTO) 78.7 %; PLT - PLATELET COUNT 164 10^3/uL (130-450); RED BLOOD COUNT 3.64 10^6/uL (4.20-5.40); SODIUM 133 mmol/L (135-145); TOTAL PROTEIN 6.4 g/dL (6.7-8.2); WHITE BLOOD COUNT 12.4 x10^3/uL (4.8-10.8)
[2017-06-23 02:23] LABS: GLUCOSE 131 mg/dL (70-100)
[2017-06-23 02:36] LABS: BACTERIA,URINE None Seen /HPF (None Seen); CLARITY,URINE CLEAR (CLEAR); SQUAMOUS EPITHELIAL CELL,UR FEW Squamous (<= Few)
[2017-06-23] MEDS: SENNA 8.6 MG TABLET PO SCH ×3 (03:44→10:03)
[2017-06-23] MEDS: hydrALAZINE 25 MG TABLET PO SCH ×2 (06:46→13:32)
[2017-06-23] MEDS: POTASSIUM CHLORIDE 10 MEQ CAPSULE PO SCH ×2 (06:46→13:32)
[2017-06-23] MEDS: ACETAMINOPHEN 500 MG TABLET PO SCH ×2 (06:46→13:31)
[2017-06-23] MEDS: oxyCODONE 5 MG TABLET PO PRN ×2 (06:48→13:30)
[2017-06-23] MEDS: SODIUM CHLORIDE FLUSH 0.9% 10 ML SYRINGE IVP SCH ×2 (06:50→13:32)
--- NOTE | 2017-06-23 08:50 | PROVIDER PROGRESS NOTE ---
Subjective - General Admit Date: 06/20/17 Objective - Patient Data Vital Signs: Vital Signs x48h Temp Pulse Resp BP Pulse Ox 06/23/17 08:05 36.7 C 63 19 129/59 L 93 06/23/17 07:31 36.6 C 72 18 131/57 H 93 06/23/17 02:59 37.5 C 74 16 145/56 H 93 06/23/17 02:52 135/64 H 06/23/17 02:38 75 152/62 H 06/23/17 02:20 75 127/65 06/23/17 02:14 72 135/61 H 06/23/17 02:10 75 127/49 L 06/23/17 02:05 98 163/71 H 06/23/17 01:31 38.1 C H 97 167/65 H Intake & Output: Intake and Output Totals x24h 06/21/17 06/22/17 06/23/17 23:59 23:59 23:59 Intake Total 2390 950 100 Output Total 1100 1700 425 Balance 1290 -750 -325 - Lab Results Lab Results: 06/23/17 02:00 06/23/17 02:00 Other Lab Results: Lab Results x24hrs 06/23/17 06/23/17 06/23/17 Range/Units 02:00 02:00 01:50 WBC 12.4 H (4.8-10.8) x10^3/uL RBC 3.64 L (4.20-5.40) 10^6/uL Hgb 10.9 L (12.0-16.0) g/dL Hct 32.0 L (37.0-47.0) % MCV 87.7 (81.0-99.0) fL MCH 30.0 (27.0-31.0) pg MCHC 34.2 (32.0-36.0) g/dL RDW 14.0 (12.0-15.0) % Plt Count 164 (130-450) 10^3/uL MPV 9.5 (7.9-10.8) fL Neut # 9.8 H (1.5-6.6) 10^3/uL Lymph # 1.4 L (1.5-3.5) 10^3/uL [place] # 0.9 (0.0-1.0) 10^3/uL Eos # 0.3 (0.0-0.7) 10^3/uL Baso # 0.1 (0.0-0.1) 10^3/uL Absolute Nucleated RBC 0.00 x10^3/uL Nucleated RBC % 0.0 /100WBC Sodium 133 L (135-145) mmol/L Potassium 4.4 (3.5-5.0) mmol/L Chloride 102 (101-111) mmol/L Carbon Dioxide 23 (21-32) mmol/L Anion Gap 8.0 (6-13) BUN 17 (6-20) mg/dL Creatinine 0.9 (0.4-1.0) mg/dL Estimated GFR (MDRD) 60 L (>89) Glucose 131 H (70-100) mg/dL Calcium 8.7 (8.5-10.3) mg/dL Total Bilirubin 0.8 (0.2-1.0) mg/dL AST 21 (10-42) IU/L ALT < 10 L (10-60) IU/L Alkaline Phosphatase 55 (42-121) IU/L Total Protein 6.4 L (6.7-8.2) g/dL Albumin 3.4 (3.2-5.5) g/dL Globulin 3.0 (2.1-4.2) g/dL Albumin/Globulin Ratio 1.1 (1.0-2.2) Urine Color LT. YELLOW Urine Clarity CLEAR (CLEAR) Urine pH 6.0 (5.0-7.5) PH Ur Specific [place] <=1.005 (1.002-1.030) Urine Protein NEGATIVE (NEGATIVE) mg/dL Urine Glucose (UA) NEGATIVE (NEGATIVE) mg/dL Urine Ketones NEGATIVE (NEGATIVE) mg/dL Urine Occult Blood SMALL H (NEGATIVE) Urine Nitrite NEGATIVE (NEGATIVE) Urine Bilirubin NEGATIVE (NEGATIVE) Urine Urobilinogen 0.2 (NORMAL) (NORMAL) E.U./dL Ur Leukocyte Esterase SMALL H (NEGATIVE) Urine RBC 11-25 H (0-5) /HPF Urine WBC 6-10 H (0-5) /HPF Ur Squamous Epith Cells FEW Squamous (<= Few) Urine Bacteria None Seen (None Seen) /HPF Urine Culture Comments INDICATED - Imaging Results Radiology Imaging: positive: Final report received (CT Pelvis shows left sacral fracture, compression type. Superior and inferior pubic rami comminuted fractures.) - Current Medications Current Medications: Current Medications Generic Name Dose Route Start Last Admin Trade Name Freq PRN Reason Stop Dose Admin Acetaminophen 1,000 mg 06/20/17 22:00 06/23/17 06:46 Tylenol PO 1,000 mg TID [facility] Administration Atorvastatin Calcium 10 mg 06/21/17 21:00 06/22/17 21:17 Lipitor PO 10 mg 2100 [facility] Administration Bacitracin 1 packet 06/22/17 21:00 06/22/17 21:23 Bacitracin TOP Not Given BID [facility] Carbidopa/Levodopa 1 tab 06/21/17 17:00 06/22/17 21:19 Sinemet 25 Mg/250 Mg PO 1 tab QID [facility] Administration Docusate Sodium 250 - 500 mg 06/22/17 17:00 06/22/17 17:04 Colace 250mg Capsule PO 250 mg DAILY [facility] Administration Enoxaparin Sodium 40 mg 06/22/17 09:00 06/22/17 11:02 Lovenox SUBQ 40 mg DAILY [facility] Administration Hydralazine HCl 25 mg 06/21/17 15:00 06/23/17 06:46 Apresoline PO 25 mg TID [facility] Administration Ketorolac Tromethamine 15 mg 06/23/17 01:36 06/23/17 02:03 Toradol Inj IVP 06/28/17 01:35 15 mg Q6HR PRN Administration PAIN Lisinopril 20 mg 06/22/17 09:00 06/22/17 08:37 Zestril PO 20 mg DAILY [facility] Administration Morphine Sulfate 2 mg 06/20/17 21:20 06/22/17 20:23 Morphine (Carpuject) IVP 2 mg Q2HR PRN Administration Pain 8 to 10 Oxycodone HCl 5 mg 06/20/17 21:20 06/23/17 06:48 Roxicodone PO 5 mg Q4HR PRN Administration Pain 5 to 7 Polyethylene Glycol 17 gm 06/21/17 09:00 06/22/17 08:37 Miralax PO 17 gm DAILY [facility] Administration Potassium Chloride 10 meq 06/21/17 15:00 06/23/17 06:46 Micro-K PO 10 meq TID [facility] Administration Senna 8.6 - 17.2 mg 06/22/17 17:00 02/10/18 17:06 Senokot PO 8.6 mg DAILY [facility] Administration Senna 17.2 - 25.8 mg 06/22/17 16:00 06/23/17 03:44 Senokot PO 06/23/17 10:01 Not Given Q6H [facility] Sodium Chloride 10 ml 06/20/17 21:20 06/23/17 02:03 Normal Saline Flush 0.9% IVP 10 ml PRN PRN Administration NEEDED PER PROVIDER ORDERS Sodium Chloride 10 ml 06/20/17 22:00 06/23/17 06:50 Normal Saline Flush 0.9% IVP 10 ml Q8HR [facility] Administration Triamterene/HCTZ 1 cap 06/21/17 14:14 06/22/17 08:37 Dyazide PO 1 cap DAILY [facility] Administration - Physical Exam Wound/Incisions: positive: Dressing dry and intact, No drainage General Appearance: positive: No acute distress, Alert, Other (Patient sleeping. Not easily aroiused. Left to sleep due to pt having been up all night.) Eyes Bilateral: positive: Normal inspection, PERRL ENT: positive: ENT inspection nml, Pharynx nml Neck: positive: Nml inspection, No JVD Respiratory: positive: Chest non-tender, No respiratory distress, Breath sounds nml Cardiovascular: positive: Regular rate & rhythm Abdomen: positive: Non-tender, No organomegaly, Nml bowel sounds, No distention Back: positive: Nml inspection Skin: positive: Color nml, No rash, Warm, Dry Extremities: positive: Non-tender, Full ROM, Nml appearance Neurologic/Psychiatric: positive: Oriented x3, Mood/affect nml Impression/Plan - Problem List Problem List: Pelvic ring fractures. The sacral fracture not unexpected associated with comminuted pubic fractures. Patient will probably take about 3 weeks to get comfortable. A little hard to predict but will require at least 2 weeks to be ambulatory. Will need SNF
[2017-06-23] MEDS: DOCUSATE SODIUM 250 MG CAPSULE PO SCH (10:02)
[2017-06-23] MEDS: CARBIDOPA/LEVODOPA 25 MG/250 MG TABLET PO SCH ×2 (10:02→13:31)
[2017-06-23] MEDS: BACITRACIN OINT TOP SCH (10:02)
[2017-06-23] MEDS: POLYETHYLENE GLYCOL 3350 17 GM PACKET PO SCH (10:03)
[2017-06-23] MEDS: ENOXAPARIN 40 MG/0.4 ML SYRINGE SUBQ SCH (10:03)
[2017-06-23] MEDS: LISINOPRIL 20 MG TABLET PO SCH (10:03)
[2017-06-23] MEDS: TRIAMT/HCTZ 37.5 MG/25 MG CAPSULE PO SCH (10:04)
[2017-06-23] MEDS ORDERED: LIDOCAINE PATCH 5% TOP PRN (11:48)
[2017-06-23] MEDS ORDERED: BISACODYL 10 MG SUPP PR PRN (11:51)
--- NOTE | 2017-06-23 12:32 | Discharge Plan ---
"Discharge Plan for SNF / [facility] - DC Plan and Transition Orders Disposition: 03 SNF DC/Xfer Condition: Stable SNF Transition Orders: Admit to: Care Age under the care of Andrew Julissa Discharge Diagnosis: Fall, pubis ramis fracture, left sacral fracture, syncope and collapse, Parkinson disease. Medicare Certification: I certify that Post Hospital fpc care is medically necessary on a continuing basis for any of the conditions for which she/he is receiving care during hospitalization. Notify PCP of admission and forward orders to primary provider for signature. Weight on admission and weekl. Call PCP immediately if weight increases by 10 pounds or if patient develops dyspnea, chest pain/tightness or edema. House Bowel Program: yes; If no BM after 2 days, nurse may give M.O.M. 30ml PO PRN and /or ducolax Supp 1 ID and /or LUCERO 250mg P.O., and/or senna 1-2 tabs PO. On day 3 nurse may give repeat above order until residents constipation is resolved. Immunizations: Annual Influenza Vaccine: yes. (between Jan 11 and August 10. ) Unless allergy or already given. Two-Step PPD: yes; per [facility] [phone] or appropriate documentation of approved exceptions Treatments & Other Orders: PT/OT/speech therapies, WBAT on BLE. Physical therapy to work on bed mobility, dangling to edge of bed, and bed to chair transfers. Optimal pain control, preceding sessions. Oxygen Orders: Not indicated. 1-2L nasal cannula to keep oxygen greater than 90 %. Lab Tests or X-Rays Orders: Not indicated. Orthopedic Orders: none, no surgery was performed. Medications: PLEASE REFER TO THE DISCHARGE MEDICATION LIST. Allergies and Adverse Reactions: Allergies Allergy/AdvReac Type Severity Reaction Status Date / Time latex Allergy Intermediate Hives Verified 06/20/17 18:19 - Medications New Prescriptions: oxyCODONE [Roxicodone] 5 mg PO Q4HR PRN #20 tablet PRN Reason: Pain 5 to 7 Acetaminophen [Tylenol] 650 mg PO Q6H PRN #30 tab PRN Reason: Pain Ciprofloxacin/Ciprofloxa HCl [Ciprofloxacin ER 1,000 mg Tab] 1,000 mg PO DAILY 10 Days #10 tbmp.24hr Lidocaine Patch 5% [Lidoderm Patch] 1 patch TOP DAILY PRN #30 patch PRN Reason: Pain Lisinopril 10 mg PO DAILY #30 tablet Senna [Senokot] 8.6 - 17.2 mg PO DAILY #30 tablet - Diet Type: Geriatric Texture: Regular Liquids: Thin May have monthly special meal: Yes - Therapies | Activity Rehabilitation Potential: Maximize functional status, Return to independent living, Maintain present ADL Functional Activity: Wt Bearing as Tolerated Weight Bearing: Full Weight Assistance Devices: Wheelchair, Walker"
--- NOTE | 2017-06-23 13:09 | DISCHARGE SUMMARY ---
Discharge Summary Admit Date: 06/20/17 Discharge Date: 06/23/17 Discharging Provider: ERICA Miranda Primary Care Provider: Andrew Costa Code Status: Attempt Resuscitation Condition at Discharge: Good Discharge Disposition: 03 SNF DC/Xfer Discharge Facility Name: [facility] - DIAGNOSES Admission Diagnoses: Other symptoms and signs involving cognitive functions and awareness (R41.89) Unspecified fall, initial encounter (W19.XXXA) Syncope and collapse (R55) Multiple fractures of pelvis with stable disruption of pelvic ring, initial encounter for closed fracture (S32.810A) Hypokalemia (E87.6) Discharge Diagnoses with Status of Each Condition: Total self-care deficit (R41.89) Fall (W19.XXXA) Syncope and collapse (R55) Pelvic ring fracture (S32.810A) Parkinson disease (G20) - HPI History of Present Illness: Nadia Osuna is an elderly 81-year old white female with a past medical history of hypertension, osteoporosis, and Parkinson disease. 2-weeks ago she was started on a new medications, amantadine by her neurologist to better treat her parkinsonian symptoms. A few days after she started to take this new medication , she developed altered mental status, had difficulty concentrating, and the way her daughter describes she appeared "foggy" with her mentation. Usually she is alert, orientated, and a sharp thinker. Besides the altered mental status, the patient also started to develop falls. During the past 10 days, she has fallen 4 times. Before starting the medication, she did not have a significant history of falls or altered mental status, and the start of these symptoms are thought to be related to starting these pills. Today, the patient was with her daughter and they were getting out of the car when she was noted to have a blank stare, lost consciousness, twisted, holding onto her walker and fell, hitting the ground with the back of her head. She did develop a small laceration and was brought to the ED for further evaluation. Once in the ED the patient was noted to be in stable condition. A CT scan of the brain showed no acute abnormalities. A pelvic x-ray showed a pelvic fracture which is described as mildly displaced left obturator ring fracture. She will be admitted for symptom management and orthopedic surgery consult. - HOSPITAL COURSE Hospital Course: The following problems/diagnoses were prevalent during this hospital stay: (1) Total self-care deficit- Patient was previously residing with daughter and son-in-law with minimal assistance. She has been steadily declining. Patient will likely qualify for rehab at a SNF. (2) Fall- Patient had a witnessed fall per daughter report during today's exam. Patient has no open abrasions/lacerations from this fall, except hit the back of her head and had minimal bleeding. Head imaging at the time of admission was all negative. Patient remained on fall precautions. Dr. Moore , ortho surgery was consulted and plans NO surgery. (3) Syncope and collapse- It is believed that the patient lost consciousness, then fell as per daughter's report. An echocardiogram was completed. Patient was continued on fall precautions and PT consulted and recommended further treatment/rehab at a SNF, with proper pain control. (4) Parkinson disease- Patient has a long standing history of this and takes medications at home. Within the past 2 weeks, patient was prescribed Namenda which is believed to have led to this fall. Patient's mental status was steadily declining since starting this medication. Namenda was stopped, and we continued with other home medications with mental status monitoring. (5) Fracture of left inferior pubic ramus- Dr. Bates, ortho surgery consulted and requests a pelvis CT to rule out a sacral fracture which would entail a long rehabilitation. PT to assist with proper ambulation, pain control. Disposition: Due to an indwelling benitez catheter and a UA that was obtained, patient will be treated for a UTI. Prescriptions were sent as part of discharge to [facility], where she will receive rehab for her fractured pelvis and sacrum. Patient was transferred via ambulance, [facility] in stable condition. Daughter was updated and present. - ALLERGIES Allergies/Adverse Reactions: Allergies Allergy/AdvReac Type Severity Reaction Status Date / Time latex Allergy Intermediate Hives Verified 06/20/17 18:19 - MEDICATIONS Home Medications: Ambulatory Orders Medication Instructions Recorded Confirmed Atorvastatin [Lipitor] 10 mg PO 2100 06/21/17 06/21/17 Carbidopa/Levodopa 1 each PO QID 06/21/17 06/21/17 [Carbidopa-Levodopa 25-250 Tab] Potassium Chloride 10 meq PO TID 06/21/17 06/21/17 Triamterene/Hydrochlorothiazid 1 each PO DAILY 06/21/17 06/21/17 [Triamterene-Hctz 37.5-25 mg Cp] hydrALAZINE [Apresoline] 25 mg PO TID 06/21/17 06/21/17 Acetaminophen [Tylenol] 650 mg PO Q6H PRN #30 tab 06/23/17 Ciprofloxacin/Ciprofloxa HCl 1,000 mg PO DAILY 10 Days #10 06/23/17 [Ciprofloxacin ER 1,000 mg Tab] tbmp.24hr Lidocaine Patch 5% [Lidoderm Patch] 1 patch TOP DAILY PRN #30 patch 06/23/17 Lisinopril 10 mg PO DAILY #30 tablet 06/23/17 Senna [Senokot] 8.6 - 17.2 mg PO DAILY #30 tablet 06/23/17 oxyCODONE [Roxicodone] 5 mg PO Q4HR PRN #20 tablet 06/23/17 - PHYSICAL EXAM AT DISCHARGE General Appearance: positive: No acute distress, Alert Eyes Bilateral: positive: Normal inspection ENT: positive: ENT inspection nml, No signs of dehydration Neck: positive: Nml inspection, Thyroid nml, No JVD Respiratory: positive: Chest non-tender, No respiratory distress, Breath sounds nml, Other (diminished at low bases.) Cardiovascular: positive: Regular rate & rhythm, No gallop, Decreased pulse(s) Peripheral Pulses: positive: 1+ Abdomen: positive: Non-tender, No organomegaly, Nml bowel sounds, Other (firm, rounded.) Back: positive: Nml inspection Skin: positive: No rash, Warm, Dry Extremities: positive: Non-tender, Full ROM, Nml appearance, No pedal edema, Joint swelling, Other (painful BLE with movement.) Neurologic/Psychiatric: positive: Oriented x3, CN's nml (2-12), Weakness, Sensory loss, Depressed mood/affect Reflexes: Bicep (R): 2+, Bicep (L): 2+ - LABS Result Diagrams: 06/23/17 02:00 06/23/17 02:00 - DIAGNOSTIC IMAGING Diagnostic Imaging Results: Prelim report reviewed, Final report reviewed Diagnostic Imaging Results Comments: EXAM: [id number] CT/HEADWO EXAM: CT HEAD EXAM DATE: 06/20/2017 07:23 PM. CLINICAL HISTORY: Fall. Injured back of head against step. COMPARISON: None. TECHNIQUE: Multiaxial CT images were obtained from the foramen magnum to the vertex. Reformats: Coronal. IV contrast: None. In accordance with CT protocol optimization, one or more of the following dose reduction techniques were utilized for this exam: automated exposure control, adjustment of mA and/or KV based on patient size, or use of iterative reconstructive technique. FINDINGS: Parenchyma: No intraparenchymal hemorrhage. Old lacunar infarcts in the left basal ganglia No evidence of mass, midline shift, or CT findings of acute infarction. Carr-white differentiation is distinct. Mild chronic microangiopathic white matter changes are evident. Extraaxial Spaces: Normal for age. No subdural or epidural collections identified. Ventricles: The ventricles and cortical sulci are enlarged, consistent with age- related tissue loss. Sinuses and orbits: Mucosal thickening in the sphenoid sinus, otherwise the imaged paranasal sinuses, orbits, and mastoids show no significant abnormality. Bones: No evidence of fracture or calvarial defect. Other: Small posterior scalp hematoma noted. IMPRESSION: Generalized age-related cortical atrophic changes without evidence of acute intracranial abnormality or skull fracture. EXAM: XR/HIPB EXAM: BILATERAL HIP RADIOGRAPHY EXAM DATE: 06/20/2017 08:16 PM. CLINICAL HISTORY: Fall. Hip pain. COMPARISON: None. TECHNIQUE: 2 views each. FINDINGS: Bones: Mild displaced obturator ring fractures on the left. Prior right femoral fracture fixation. No other bony abnormalities identified. Right Hip: Normal. No dislocation. The hip joint space is preserved. Left Hip: Normal. No dislocation. The hip joint space is preserved. Soft Tissues: Heterotopic ossification on the right. IMPRESSION: 1. Mildly displaced left obturator ring fractures. 2. Old right femoral fracture fixation with lateral heterotopic ossification. EXAM: CT/PELWO EXAM: CT BONY PELVIS WITHOUT CONTRAST EXAM DATE: 06/22/2017 08:41 PM. CLINICAL HISTORY: Assess for sacral fracture. COMPARISON: 06/30/2017 radiographs. TECHNIQUE: Thin-section axial images were acquired of the pelvis without contrast. Post-processing: Coronal and sagittal reformats. Other: None. In accordance with CT protocol optimization, one or more of the following dose reduction techniques were utilized for this exam: automated exposure control, adjustment of mA and/or KV based on patient size, or use of iterative reconstructive technique. FINDINGS: Bones: The patient has a H-type sacral fracture with a transverse component through the S2 vertebral body. The left sacral alar fracture line is zone 2 with some displacement of an anterior cortical fragment. Moderate osteopenia is present. The patient has left obturator ring fractures at the left anterior pubic root, the left parasymphyseal pubis, and the left inferior pubic ramus. These are mildly displaced. A right dynamic hip screw is present. Sacroiliac Joints: No widening, erosions, or sclerosis. Symphysis Pubis: Unremarkable. Right Hip: Mild osseous hyperaeration is present. Left Hip: Mild osteophyte formation is present. Musculature: Normal. No fatty atrophy. Pelvic Cavity: The visualized bowel, bladder, and reproductive organs are unremarkable on this noncontrast exam. Other: Arterial calcifications indicate atherosclerosis. Sigmoid diverticulosis is present. A Benitez catheter is in the bladder. IMPRESSION: 1. H-type sacral fracture. 2. Left obturator ring fractures. 3. Sigmoid diverticulosis. - FOLLOW UP Follow Up: Physical therapy and care to continue at [facility]. Then plans to return home with daughter. - TIME SPENT Time Spent in Discharge (Minutes): 45
[2017-06-23 13:29] VITALS: BP 136/48
--- NOTE | 2017-06-23 16:08 | XRAY Preliminary Report ---
Exam: XR CHEST 2 VIEW X-RAY IMPRESSION: 1. Irregular opacities in the left lung base may represent atelectasis, aspiration or infectious proc ess. 2. Severe anterior wedging of a mid thoracic vertebral body is age-indeterminate. [facility] SITE ID: [id number]
--- NOTE | 2017-06-23 16:08 | XRAY Report ---
EXAM: CHEST RADIOGRAPHY EXAM DATE: 06/23/2017 11:20 AM. CLINICAL HISTORY: Fever. COMPARISON: None. TECHNIQUE: 2 views. FINDINGS: Lungs/Pleura: Irregular opacities in the left lung base is silhouetting of the left hemidiaphragm. Mediastinum: Heart and mediastinal contours are unremarkable. Other: Compression deformity of a mid thoracic vertebral body with exaggerated kyphosis of the thorac ic spine. IMPRESSION: 1. Irregular opacities in the left lung base may represent atelectasis, aspiration or infectious proc ess. 2. Severe anterior wedging of a mid thoracic vertebral body is age-indeterminate. [facility] Referring Provider Line: [phone] SITE ID: [id number]
== END 2017-06-23 14:15 | DRG 536 ==
LOC: EDUNIT# → ED 18:02 → SUPCPDRO 18:02 → MS3 21:20
PROVIDERS: ADMIT Internal Medicine; ATTEND Nurse Practitioner
DX: S32.512A Fracture of superior rim of left pubis, initial encounter for closed fracture (principal); S32.121A Minimally displaced Zone II fracture of sacrum, initial encounter for closed fracture; T83.511A Infection and inflammatory reaction due to indwelling urethral catheter, initial encounter; N39.0 Urinary tract infection, site not specified; Y92.008 Other place in unspecified non-institutional (private) residence as the place of occurrence of the external cause; S32.592A Other specified fracture of left pubis, initial encounter for closed fracture; R55 Syncope and collapse; S01.01XA Laceration without foreign body of scalp, initial encounter; W18.30XA Fall on same level, unspecified, initial encounter; Y92.007 Garden or yard of unspecified non-institutional (private) residence as the place of occurrence of the external cause; G20 Parkinson's disease; E87.6 Hypokalemia; I10 Essential (primary) hypertension; R41.82 Altered mental status, unspecified; T42.8X5A Adverse effect of antiparkinsonism drugs and other central muscle-tone depressants, initial encounter; T43.8X5A Adverse effect of other psychotropic drugs, initial encounter; M81.0 Age-related osteoporosis without current pathological fracture; Y84.6 Urinary catheterization as the cause of abnormal reaction of the patient, or of later complication, without mention of misadventure at the time of the procedure; Y92.230 Patient room in hospital as the place of occurrence of the external cause; Z91.81 History of falling; Z87.891 Personal history of nicotine dependence
CPT/HCPCS: 12001; 36415; 51702; 70450; 71046; 72192; 73521; 80053; 81001; 81003; 83690; 83735; 85025; 85610; 86850; 86900; 86901; 87040; 87086; 90471; 93005; 93306; 96361; 96365; 96375; 96376; 99283; 99284; 99285

== ENCOUNTER 2017-06-23 14:28 | Outpatient (CLI) | payer MEDICARE, OTHER | END 2017-06-23 14:29 | LOC: EMS 14:28 | PROVIDERS: ATTEND Surgery | DX: S32.9XXA Fracture of unspecified parts of lumbosacral spine and pelvis, initial encounter for closed fracture (principal) | CPT/HCPCS: A0425; A0428 ==

== ENCOUNTER 2017-06-30 08:00 | Outpatient (CLI) | payer MEDICARE, OTHER ==
[2017-06-30 15:54] LABS: BASOPHILS # (AUTO) 0.1 10^3/uL (0.0-0.1); BASOPHILS % (AUTO) 0.3 %; EOSINOPHILS # (AUTO) 0.1 10^3/uL (0.0-0.7); EOSINOPHILS % (AUTO) 0.7 %; HGB - HEMOGLOBIN 11.4 g/dL (12.0-16.0); LYMPHOCYTES % (AUTO) 6.1 %; MEAN CORPUSCULAR HEMOGLOBIN 28.3 pg (27.0-31.0); MEAN CORPUSCULAR HGB CONC 31.9 g/dL (32.0-36.0); MEAN CORPUSCULAR VOLUME 88.9 fL (81.0-99.0); MEAN PLATELET VOLUME 8.4 fL (7.9-10.8); MONOCYTES # (AUTO) 1.1 10^3/uL (0.0-1.0); MONOCYTES % (AUTO) 6.9 %; NEUTROPHILS # (AUTO) 13.5 10^3/uL (1.5-6.6); PLT - PLATELET COUNT 449 10^3/uL (130-450); RED BLOOD COUNT 4.04 10^6/uL (4.20-5.40); RED CELL DISTRIBUTION WIDTH 13.7 % (12.0-15.0); WHITE BLOOD COUNT 15.7 x10^3/uL (4.8-10.8)
[2017-06-30 16:03] LABS: CALCIUM 9.4 mg/dL (8.5-10.3)
== END 2017-06-30 08:01 | disposition home or self-care (01) ==
LOC: LAB.R 08:00
DX: R55 Syncope and collapse (principal)
CPT/HCPCS: 80048; 85025

== ENCOUNTER 2017-07-01 08:00 | Outpatient (CLI) | payer MEDICARE, OTHER | END 2017-07-01 23:59 | disposition home or self-care (01) | LOC: LAB.R 08:00 | DX: R19.7 Diarrhea, unspecified (principal) | CPT/HCPCS: 87798 ==

== ENCOUNTER 2017-07-03 15:55 | Outpatient (CLI) | payer MEDICARE, OTHER | END 2017-07-03 15:56 | disposition home or self-care (01) | LOC: LAB.R 15:55 | DX: R19.7 Diarrhea, unspecified (principal) | CPT/HCPCS: 87493 ==

== ENCOUNTER 2017-11-10 08:00 | Outpatient (CLI) | payer MEDICARE, OTHER ==
[2017-11-10 13:00] LABS: BASOPHILS # (AUTO) 0.1 10^3/uL (0.0-0.1); BASOPHILS % (AUTO) 0.5 %; EOSINOPHILS # (AUTO) 0.2 10^3/uL (0.0-0.7); EOSINOPHILS % (AUTO) 1.8 %; HGB - HEMOGLOBIN 13.8 g/dL (12.0-16.0); LYMPHOCYTES # (AUTO) 1.6 10^3/uL (1.5-3.5); LYMPHOCYTES % (AUTO) 12.7 %; MEAN CORPUSCULAR HEMOGLOBIN 28.7 pg (27.0-31.0); MEAN CORPUSCULAR HGB CONC 32.6 g/dL (32.0-36.0); MEAN PLATELET VOLUME 9.6 fL (7.9-10.8); MONOCYTES # (AUTO) 0.8 10^3/uL (0.0-1.0); MONOCYTES % (AUTO) 6.2 %; NEUTROPHILS # (AUTO) 10.1 10^3/uL (1.5-6.6); NEUTROPHILS % (AUTO) 78.8 %; PLT - PLATELET COUNT 241 10^3/uL (130-450); RED CELL DISTRIBUTION WIDTH 13.9 % (12.0-15.0); WHITE BLOOD COUNT 12.8 x10^3/uL (4.8-10.8)
[2017-11-10 13:39] LABS: CALCIUM 9.1 mg/dL (8.5-10.3); CREATININE 0.9 mg/dL (0.4-1.0)
== END 2017-11-10 08:01 | disposition home or self-care (01) ==
LOC: LAB.R 08:00
DX: G20 Parkinson's disease (principal); I10 Essential (primary) hypertension
CPT/HCPCS: 80048; 85025

== ENCOUNTER 2017-11-18 08:00 | Outpatient (CLI) | payer MEDICARE, OTHER | END 2017-11-18 08:01 | LOC: LAB.R 08:00 | DX: A04.72 Enterocolitis due to Clostridium difficile, not specified as recurrent (principal) | CPT/HCPCS: 87493 ==

== ENCOUNTER 2017-11-26 11:28 | Emergency (ER) | payer MEDICARE, OTHER ==
[2017-11-26 11:42] VITALS: BP 132/69
--- NOTE | 2017-11-26 12:24 | XRAY Report ---
Procedure Date: 11/26/2017 Accession Number: [id number] / [id number] Procedure: XR - Ribs w/PA Chest RT CPT Code: FULL RESULT: EXAM: RIGHT RIB RADIOGRAPHY EXAM DATE: 11/26/2017 12:12 PM. CLINICAL HISTORY: ACUTE RIB PAIN, RIGHT SIDE. COUGH. COMPARISON: 06/23/2017. TECHNIQUE: 1 view of the chest and 2 views of the ribs. FINDINGS: Bones: Slight cortical undulation of the right anterior ninth rib as seen on the chest radiograph. A marker is placed over the lower right ribs. No other fracture or focal bone lesion is identified. Lungs: No focal opacities. No pneumothorax. No pleural effusions. Mediastinum: Heart and mediastinal contours are unremarkable. Minimal aortic arch calcification. Other: None. IMPRESSION: 1. Slight cortical undulation of the anterior right ninth rib which could represent a fracture of uncertain chronicity. 2. Lungs are clear. [facility]
--- NOTE | 2017-11-26 12:46 | ED Physician Documentation ---
PD HPI CHEST PAIN - Stated complaint Stated Complaint: RT SIDE PX - Chief complaint Chief Complaint: General - History obtained from History obtained from: Patient - History of Present Illness Timing - onset: How many days ago (3) Timing - onset during: Other (she coughed hard few days ago, with pain right posterolateral area, that has persisted with movements and some with deep breathing. Has not had persistent cough.) Timing - duration: Days (3) Timing - details: Abrupt onset, Still present Quality: Sharp, Stabbing, Pain Location: Right chest (lateral area on right, at/below bra line.) Radiation: No: Jaw, Neck Improved by: Rest Worsened by: Exertion, Movement, Palpation Associated symptoms: No: Shortness of air, Diaphoresis, Nausea Similar symptoms before: Has not had sx before Recently seen: Not recently seen Review of Systems Constitutional: denies: Fever Nose: denies: Rhinorrhea / runny nose, Congestion Throat: denies: Sore throat Cardiac: denies: Palpitations, Pedal edema, Calf pain Respiratory: reports: Cough (occasional, not regular) GI: denies: Abdominal Pain, Nausea, Vomiting, Diarrhea Skin: denies: Rash, Lesions Neurologic: denies: Focal weakness, Numbness PD PAST MEDICAL HISTORY - Past Medical History Cardiovascular: None, Hypertension Respiratory: None Neuro: Parkinson's Endocrine/Autoimmune: None GI: None [employer]ING: None : None HEENT: Other Psych: None Musculoskeletal: Osteoporosis, Other Derm: None - Past Surgical History Past Surgical History: Yes Ortho: Hip replacement, Other - Present Medications Home Medications: Ambulatory Orders Medication Instructions Recorded Confirmed Atorvastatin [Lipitor] 10 mg PO 2100 06/21/17 06/21/17 Carbidopa/Levodopa 1 each PO QID 06/21/17 06/21/17 [Carbidopa-Levodopa 25-250 Tab] Potassium Chloride 10 meq PO TID 06/21/17 06/21/17 Triamterene/Hydrochlorothiazid 1 each PO DAILY 06/21/17 06/21/17 [Triamterene-Hctz 37.5-25 mg Cp] hydrALAZINE [Apresoline] 25 mg PO TID 06/21/17 06/21/17 Acetaminophen [Tylenol] 650 mg PO Q6H PRN #30 tab 06/23/17 Ciprofloxacin/Ciprofloxa HCl 1,000 mg PO DAILY 10 Days #10 06/23/17 [Ciprofloxacin ER 1,000 mg Tab] tbmp.24hr Lidocaine Patch 5% [Lidoderm Patch] 1 patch TOP DAILY PRN #30 patch 06/23/17 Lisinopril 10 mg PO DAILY #30 tablet 06/23/17 Senna [Senokot] 8.6 - 17.2 mg PO DAILY #30 tablet 06/23/17 oxyCODONE [Roxicodone] 5 mg PO Q4HR PRN #20 tablet 06/23/17 Oxycodone HCl/Acetaminophen 1 each PO Q6H PRN #15 tablet 11/26/17 [Percocet 5-325 mg Tablet] - Allergies Allergies/Adverse Reactions: Allergies Allergy/AdvReac Type Severity Reaction Status Date / Time latex Allergy Intermediate Hives Verified 11/26/17 11:41 - Social History Does the pt smoke?: No Smoking Status: Never smoker Does the pt drink ETOH?: No Does the pt have substance abuse?: No - Immunizations Immunizations are current?: Yes PD ED PE NORMAL - Vitals Vital signs reviewed: Yes - General General: Alert and oriented X 3, No acute distress (okay sitting rested. Pain with torsional movement of upper body and with deep breathing. Tender at right lateral chestwall about ribs 9-10 area. ), Well developed/nourished Results - Vitals Vitals: Vital Signs - 24 hr 11/26/17 11:39 Temperature 36.3 C L Heart Rate 66 Respiratory 18 Rate Blood Pressure 132/69 H O2 Saturation 95 Oxygen O2 Source Room air - Rads (name of study) chest with ribs Radiology: Prelim report reviewed (contour irregularity at 9th rib c/w nondisplaced fracture. ) PD MEDICAL DECISION MAKING - ED course Complexity details: reviewed results (slight contour irregularity at 9th rib suggestive nondispl fracture. ), considered differential, d/w patient - Sepsis Event Vital Signs: Vital Signs - 24 hr 11/26/17 11:39 Temperature 36.3 C L Heart Rate 66 Respiratory 18 Rate Blood Pressure 132/69 H O2 Saturation 95 Oxygen O2 Source Room air Departure - Departure Disposition: 01 Home, Self Care Clinical Impression: Rib fracture Qualifiers: Encounter type: initial encounter Rib fracture type: single rib Fracture type: closed Laterality: right Qualified Code(s): S22.31XA - Fracture of one rib, right side, initial encounter for closed fracture Chest pain Qualifiers: Chest pain type: chest pain on breathing Qualified Code(s): R07.1 - Chest pain on breathing; R07.81 - Pleurodynia Condition: Stable Record reviewed to determine appropriate education?: Yes Instructions: ED Fx Rib Follow-Up: Jacy Estrada PA-C [Primary Care Provider] - Prescriptions: Oxycodone HCl/Acetaminophen [Percocet 5-325 mg Tablet] 1 each PO Q6H PRN #15 tablet PRN Reason: Pain Comments: There is a slight irregularity of the ninth rib on x-ray suggestive of a broken rib. Continue your Aleve and add Tylenol if needed. Add half to 1 tablet of the Percocet if needed for worse pain, particularly at night. Follow-up with your primary care in about a week for recheck. There is no sign of lung injury on your x-ray. Discharge Date/Time: 11/26/17 13:15
== END 2017-11-26 13:15 | disposition home or self-care (01) ==
LOC: ED 11:28
DX: R07.81 Pleurodynia (principal); R05 Cough; M81.0 Age-related osteoporosis without current pathological fracture; I10 Essential (primary) hypertension; G20 Parkinson's disease
CPT/HCPCS: 99283

== ENCOUNTER 2017-12-27 12:43 | Outpatient (CLI) | payer MEDICARE, OTHER ==
[2017-12-27] MEDS ORDERED: GADOBUTROL 7.5 MMOL/7.5 ML VIAL ONE (13:15)
[2017-12-27] MEDS ORDERED: GADOBUTROL 7.5 MMOL/7.5 ML VIAL IVP ONE (14:12)
--- NOTE | 2017-12-27 15:08 | MRI Report ---
Procedure Date: 12/27/2017 Accession Number: [id number] / [id number] Procedure: MRI - Brain W/WO CPT Code: FULL RESULT: EXAM: MRI BRAIN WITHOUT AND WITH CONTRAST EXAM DATE: 12/27/2017 01:45 PM. CLINICAL HISTORY: 82-year-old with history of Parkinson's disease presenting with muscle spasticity. Evaluate for intracranial pathology. COMPARISON: CT head 06/20/2017. TECHNIQUE: Multiplanar, multisequence T1-weighted and fluid-sensitive MR sequences of the brain were performed. Sequences optimized for routine evaluation. Other: None. IV Contrast: 4.5 cc GADAVIST. FINDINGS: Brain Volume: Normal for age. Parenchyma: No acute parenchymal hemorrhage, mass, or midline shift. There is a cystic lesion seen within the left subinsular space may represent prominent perivascular spaces. There is old chronic lacunar infarcts involving the left putamen and left centrum semiovale. There is mild to moderate bilateral areas of T2/FLAIR signal hyperintensity seen. There is susceptibility artifact associated with the left putamen lacunar infarct suggesting prior hemorrhage. No abnormal enhancement. Ventricles/Cisterns: Ventricles appear prominent but appropriate fixative volume loss. No evidence of hydrocephalus. There is a extra-axial, dural-based, avidly enhancing mass lesion arising from the right paraclinoid region measuring 4.5 x 10.0 x 8.1 mm (cc by TRV by AP). There is no convincing edema of the overlying brain parenchyma. No other abnormal extra-axial fluid collection or hemorrhage. Orbits: Changes of bilateral lens replacement. Sella Turcica: The pituitary gland, cavernous sinuses, suprasellar cistern and optic chiasm are unremarkable. IAC: Symmetric and unremarkable. Vasculature: Normal signal flow void is seen in the major arterial structures at the skull base. The dural sinuses are patent and enhance normally. Sinuses: Small right maxillary mucosal retention cysts versus polyps. Mild thickening of the sphenoid sinuses. Mastoid air cells and middle ear cavities are clear. Bones: No focal pathologic appearing marrow signal changes. Other: None. IMPRESSION: 1. There is a extra-axial, dural-based, avidly enhancing mass lesion arising from the right paraclinoid region measuring 4.5 x 10.0 x 8.1 mm (cc by TRV by AP). 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 There is no convincing edema of the overlying brain parenchyma. 2. No acute infarct, intracranial hemorrhage, additional mass, hydrocephalus, midline shift, or additional areas of abnormal postcontrast enhancement. 3. There are old hemorrhagic lacunar infarcts seen involving the left putamen and left centrum semiovale. 4. There is additional mild to moderate white matter changes seen that likely represent sequela of chronic small vessel ischemic disease. [facility]
== END 2017-12-27 12:44 | disposition home or self-care (01) ==
LOC: DI 12:43
PROVIDERS: ATTEND Psychiatry & Neurology Neurology
DX: G20 Parkinson's disease (principal); M62.838 Other muscle spasm; G93.9 Disorder of brain, unspecified; Z86.73 Personal history of transient ischemic attack (TIA), and cerebral infarction without residual deficits
CPT/HCPCS: 70553; A9585

== ENCOUNTER 2018-02-27 08:44 | Outpatient (CLI) | payer MEDICARE, OTHER ==
--- NOTE | 2018-02-27 11:04 | MRI Report ---
Reason: SECONDARY PARKINSONISM, IMBALANCE, FULL INCONTINEN Procedure Date: 02/27/2018 Accession Number: [id number] / [id number] Procedure: MRI - Cervical Spine W/O CPT Code: FULL RESULT: EXAM: MRI CERVICAL SPINE WITHOUT CONTRAST EXAM DATE: 02/27/2018 10:00 AM. CLINICAL HISTORY: 82-year-old woman with imbalance, incontinence, and secondary parkinsonism. COMPARISONS: BRAIN W/WO 12/27/2017 1:27 PM. TECHNIQUE: Multiplanar, multisequence T1-weighted and fluid-sensitive sequences of the cervical spine without contrast. Other: None. FINDINGS: Neurologic Structures: Cervical spinal cord is normal in caliber without definite signal abnormality. The posterior fossa demonstrates prominent CSF space extending to the fourth ventricle, consistent with ernesto cisterna magna. Alignment: No significant spondylolisthesis. Bone Marrow: No gross fractures or bone lesions. No marrow edema. Interspace Levels/Facets: C2-C3: Unremarkable. C3-C4: There is moderate to severe disk height loss. No significant central canal or neural foraminal narrowing. C4-C5: There is moderate disk height loss. Posterior disk osteophyte complex and mild thickening of the ligamentum flavum result in mild narrowing of the central canal. Uncovertebral joint hypertrophy and facet hypertrophy result in moderate narrowing of the right neural foramen and minimal narrowing on the left. C5-C6: There is moderate to severe disk height loss. Posterior disk osteophyte complex and focal thickening of the ligamentum flavum result in mild to moderate narrowing of the central canal. Uncovertebral joint hypertrophy results in moderate narrowing of the left neural foramen and minimal narrowing on the right. C6-C7: There is mild disk height loss. Posterior disk osteophyte complex results in minimal narrowing of the central canal. Uncovertebral joint hypertrophy results in mild narrowing of the neural foramina bilaterally. C7-T1: Unremarkable. Musculature: Normal. No edema or fatty atrophy. Other: The paravertebral and prevertebral soft tissues are normal. IMPRESSION: 1. Multilevel degenerative disk changes. 2. Multilevel degenerative changes result in the following: - C4-C5: Mild narrowing of the central canal. Moderate narrowing of the right neural foramen and minimal narrowing on the left. - C5-C6: Mild to moderate narrowing of the central canal. Moderate narrowing of the left neural foramen and minimal narrowing on the right. - C6-C7: Mild narrowing of the neural foramina bilaterally. [facility]
--- NOTE | 2018-02-27 22:19 | MRI Report ---
Reason: SECONDARY PARKINSONISM, IMBALANCE, FULL INCONTINEN Procedure Date: 02/27/2018 Accession Number: [id number] / [id number] Procedure: MRI - Lumbar Spine W/O CPT Code: FULL RESULT: EXAM: MRI LUMBAR SPINE WITHOUT CONTRAST EXAM DATE: 02/27/2018 10:56 AM. CLINICAL HISTORY: Secondary Parkinsonism, imbalance, full incontinence. COMPARISON: None. TECHNIQUE: Multiplanar, multisequence T1-weighted and fluid-sensitive sequences of the lumbar spine from T12 to S1 without contrast. Other: None. FINDINGS: Spinal Canal: The conus terminates at T12-L1. The conus medullaris and cauda equina are unremarkable. Alignment: There is 10 degrees levoconvex scoliosis centered at L4-L5, measured between L1-L2 and L5-S1. Bone Marrow: Five muz-ary-[id number] lumbar vertebral bodies are assumed. No gross fractures or bone lesions. No bone marrow replacement. Disk Levels/Facets: T12-L1: Unremarkable. L1-L2: Disk desiccation. Annular bulge. No significant canal or foraminal narrowing. L2-L3: Disk desiccation. Annular bulge. Mild facet arthropathy. Mild bilateral foraminal narrowing. L3-L4: Disk desiccation. Annular bulge eccentric to the right foraminal zone. Mild facet arthropathy. Mild right greater than left foraminal narrowing. L4-L5: Disk desiccation. Mild facet arthropathy. No significant canal or foraminal narrowing. L5-S1: Disk desiccation. Mild facet arthropathy. No significant canal or foraminal narrowing. Musculature: Mild fat infiltration of the paraspinous and gluteal musculature. Other: Prominent parapelvic cyst and extrarenal pelvis on the right. IMPRESSION: 1. Mild multilevel degenerative changes most pronounced at L2-L3 and L3-L4. 2. Mild bilateral foraminal narrowing at L2-L3 and mild right greater than left foraminal narrowing at L3-L4. No significant canal narrowing. 3. No focal extrusion or protrusion or impingement of the neural elements. Comment: The following findings are so common in adults without low back pain that while we report their presence, they must be interpreted with caution and in the context of the clinical situation. (Reference Marcik et al, Spine 2001) Prevalence of findings in patients without low back pain: Disk degeneration (any evidence): 92% Disk desiccation/T2 signal loss: 83% Disk height loss: 56% Disk bulge: 64% Disk protrusion: 32% Annular tear/high intensity zone: 38% RADIA
--- NOTE | 2018-02-27 22:19 | MRI Report ---
Reason: SECONDARY PARKINSONISM, IMBALANCE, FULL INCONTINEN Procedure Date: 02/27/2018 Accession Number: [id number] / [id number] Procedure: MRI - Thoracic Spine W/O CPT Code: FULL RESULT: EXAM: MRI THORACIC SPINE WITHOUT CONTRAST. EXAM DATE: 02/27/2018 10:26 AM. CLINICAL HISTORY: Secondary parkinsonism, imbalance, full incontinence. COMPARISONS: None. TECHNIQUE: Multiplanar, multisequence T1-weighted and fluid-sensitive sequences of the thoracic spine from C7 to L1 without contrast. Other: None. FINDINGS: Spinal Canal: No signal abnormality in the visualized spinal cord. Conus medullaris terminates at L1. Alignment: There is focal 30 degrees kyphosis at T7. Bone Marrow: Severe chronic appearing compression fracture of T7 with loss of greater than 80% height. 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 There is no evidence for retropulsion. Chronic appearing anterior compression deformity of T3 and T4 with less than 50% height loss, without retropulsion. Disk Levels/Facets: Disk desiccation at all thoracic disk levels, without significant canal or foraminal narrowing. No focal protrusion or extrusion. Musculature: Normal. No edema or fatty atrophy. Other: The visualized lungs, mediastinum, and abdominal cavity are unremarkable. IMPRESSION: 1. Chronic compression fractures of T3, T4 and T7, most severe at T7 with focal 30 degrees kyphosis at T7. There is greater than 80% loss of height of T7 centrally, without retropulsion. 2. Fat-suppressed T2 weighted sequence shows no evidence for marrow edema to suggest acute fracture. 3. No significant spinal canal or foraminal narrowing. RADIA
== END 2018-02-27 08:45 | disposition home or self-care (01) ==
LOC: DI 08:44
PROVIDERS: ATTEND Internal Medicine Endocrinology, Diabetes & Metabolism
DX: G21.9 Secondary parkinsonism, unspecified (principal); R26.89 Other abnormalities of gait and mobility; R15.9 Full incontinence of feces; M50.30 Other cervical disc degeneration, unspecified cervical region; M48.02 Spinal stenosis, cervical region; M51.36 Other intervertebral disc degeneration, lumbar region; M48.061 Spinal stenosis, lumbar region without neurogenic claudication; M25.78 Osteophyte, vertebrae; M48.54XA Collapsed vertebra, not elsewhere classified, thoracic region, initial encounter for fracture
CPT/HCPCS: 72141; 72146; 72148

== ENCOUNTER 2018-07-16 10:34 | Outpatient (CLI) | payer MEDICARE, OTHER ==
[2018-07-16 18:11] LABS: ALBUMIN 3.9 g/dL (3.2-5.5); ALBUMIN/GLOBULIN RATIO 1.4 (1.0-2.2); ALKALINE PHOSPHATASE 60 IU/L (42-121); ALT ALANINE AMINOTRANSFERASE 15 IU/L (10-60); AST ASPARTATE AMINOTRANSFERASE 21 IU/L (10-42); BILIRUBIN,TOTAL 0.9 mg/dL (0.2-1.0); BUN - BLOOD UREA NITROGEN 24 mg/dL (6-20); CALCIUM 9.2 mg/dL (8.5-10.3); CARBON DIOXIDE - CO2 30 mmol/L (21-32); CHLORIDE 101 mmol/L (101-111); CHOL/HDL RATIO 3.1 (<4.4); CHOLESTEROL 163 mg/dL; CREATININE 0.7 mg/dL (0.4-1.0); GFR - MDRD 80 (>89); GLUCOSE 101 mg/dL (70-100); HDL CHOLESTEROL 53 mg/dL; LDL CHOLESTEROL,CALCULATED 87 mg/dL; LDL/HDL RATIO 1.6 (<4.4); SODIUM 140 mmol/L (135-145); TOTAL PROTEIN 6.7 g/dL (6.7-8.2); VLDL CHOLESTEROL 23 mg/dL
== END 2018-07-16 10:35 | disposition home or self-care (01) ==
LOC: LAB.F 10:34
PROVIDERS: ATTEND Internal Medicine
DX: E78.00 Pure hypercholesterolemia, unspecified (principal)
CPT/HCPCS: 36415; 80053; 80061; 83721

== ENCOUNTER 2018-09-26 11:02 | Outpatient (CLI) | payer MEDICARE, OTHER | END 2018-09-26 11:03 | disposition critical access hospital (66) | LOC: EMS 11:02 | PROVIDERS: ATTEND Surgery | DX: R55 Syncope and collapse (principal) ==

== ENCOUNTER 2018-09-26 11:24 | Observation (INO) | payer MEDICARE, OTHER ==
--- NOTE | 2018-09-26 11:55 | XRAY Report ---
Reason: Chest Pain Procedure Date: 09/26/2018 Accession Number: [id number] / [id number] Procedure: XR - Chest 1 View X-Ray CPT Code: 08771 FULL RESULT: EXAM: CHEST RADIOGRAPHY EXAM DATE: 09/26/2018 11:41 AM. CLINICAL HISTORY: Chest Pain. COMPARISON: RIBS 2 VIEW RT 11/26/2017 11:52 AM. TECHNIQUE: 1 view. FINDINGS: Lungs/Pleura: No focal opacities evident. No pleural effusion. No pneumothorax. Mediastinum: Stable cardiomegaly. Calcified aorta Other: Postop left ribs IMPRESSION: No active cardiopulmonary disease RADIA
[2018-09-26 12:12] LABS: BASOPHILS % (AUTO) 0.6 %; EOSINOPHILS # (AUTO) 0.3 10^3/uL (0.0-0.7); EOSINOPHILS % (AUTO) 3.4 %; HGB - HEMOGLOBIN 13.9 g/dL (12.0-16.0); LYMPHOCYTES # (AUTO) 1.2 10^3/uL (1.5-3.5); LYMPHOCYTES % (AUTO) 15.1 %; MEAN CORPUSCULAR HEMOGLOBIN 28.8 pg (27.0-31.0); MEAN CORPUSCULAR HGB CONC 32.8 g/dL (32.0-36.0); MEAN CORPUSCULAR VOLUME 87.8 fL (81.0-99.0); MEAN PLATELET VOLUME 9.3 fL (7.9-10.8); MONOCYTES # (AUTO) 0.5 10^3/uL (0.0-1.0); MONOCYTES % (AUTO) 6.3 %; NEUTROPHILS # (AUTO) 5.8 10^3/uL (1.5-6.6); NEUTROPHILS % (AUTO) 74.6 %; PLT - PLATELET COUNT 264 10^3/uL (130-450); RED BLOOD COUNT 4.85 10^6/uL (4.20-5.40); RED CELL DISTRIBUTION WIDTH 13.9 % (12.0-15.0); WHITE BLOOD COUNT 7.8 x10^3/uL (4.8-10.8)
[2018-09-26 12:13] LABS: BILIRUBIN,URINE NEGATIVE (NEGATIVE); CLARITY,URINE CLEAR (CLEAR); GLUCOSE, URINE (UA) NEGATIVE (NEGATIVE); KETONES,URINE (UA) NEGATIVE (NEGATIVE); LEUKOCYTE ESTERASE, URINE NEGATIVE (NEGATIVE); NITRITE,URINE NEGATIVE (NEGATIVE); OCCULT BLOOD,URINE NEGATIVE (NEGATIVE); PROTEIN,URINE NEGATIVE (NEGATIVE); UROBILINOGEN,URINE 0.2 (NORMAL) E.U./dL (NORMAL)
[2018-09-26 12:25] LABS: ALBUMIN 4.1 g/dL (3.2-5.5); ALBUMIN/GLOBULIN RATIO 1.5 (1.0-2.2); ALKALINE PHOSPHATASE 54 IU/L (42-121); ALT ALANINE AMINOTRANSFERASE < 10 IU/L (10-60); AST ASPARTATE AMINOTRANSFERASE 21 IU/L (10-42); BILIRUBIN,TOTAL 0.8 mg/dL (0.2-1.0); BUN - BLOOD UREA NITROGEN 22 mg/dL (6-20); CALCIUM 9.6 mg/dL (8.5-10.3); CARBON DIOXIDE - CO2 29 mmol/L (21-32); CHLORIDE 101 mmol/L (101-111); CREATININE 0.9 mg/dL (0.4-1.0); GFR - MDRD 60 (>89); GLUCOSE 112 mg/dL (70-100); LIPASE 22 U/L (22-51); SODIUM 142 mmol/L (135-145); TOTAL PROTEIN 6.8 g/dL (6.7-8.2)
--- NOTE | 2018-09-26 12:35 | ED Physician Documentation ---
PD HPI SYNCOPE - Stated complaint Stated Complaint: syncope - Chief complaint Chief Complaint: General - History obtained from History obtained from: Patient, Family (daughters x2) - History of Present Illness Witnessed: Witnessed (83-year-old woman with history of parkinsonism was on the toilet having a bowel movement. She complained of chest or abdominal pain and then had syncope for about 8 minutes. She was helped to the floor and there was no injury. She feels fine now but has poor recollection for the event. No recent changes in her Parkinson's medications but did recently stop atorvastat in.) Review of Systems Ten Systems: 10 systems reviewed and negative Constitutional: denies: Fever, Chills Cardiac: denies: Palpitations, Pedal edema Respiratory: denies: Dyspnea PD PAST MEDICAL HISTORY - Past Medical History Past Medical History: Yes Cardiovascular: None, Hypertension Respiratory: None Neuro: Parkinson's Endocrine/Autoimmune: None GI: None REFERRAL CLERK: None : None HEENT: Other Psych: None Musculoskeletal: Osteoporosis, Other Derm: None - Past Surgical History Past Surgical History: Yes Ortho: Hip replacement, Other - Present Medications Home Medications: Ambulatory Orders Medication Instructions Recorded Confirmed Carbidopa/Levodopa 1 each PO QID 06/21/17 09/26/18 [Carbidopa-Levodopa 25-250 Tab] Potassium Chloride 20 meq PO BID 06/21/17 09/26/18 Triamterene/Hydrochlorothiazid 1 each PO DAILY 06/21/17 09/26/18 [Triamterene-Hctz 37.5-25 mg Cp] Acetaminophen [Tylenol] 650 mg PO Q6H PRN #30 tab 06/23/17 09/26/18 Lisinopril 10 mg PO DAILY #30 tablet 06/23/17 09/26/18 Gabapentin 300 mg PO QPM 09/26/18 09/26/18 Omeprazole 20 mg PO DAILY 09/26/18 09/26/18 hydrALAZINE [Apresoline] 10 mg PO TID 09/26/18 09/26/18 - Allergies Allergies/Adverse Reactions: Allergies Allergy/AdvReac Type Severity Reaction Status Date / Time latex Allergy Intermediate Hives Verified 09/26/18 11:31 adhesive tape Allergy Unknown Verified 09/26/18 11:31 - Social History Does the pt smoke?: No Smoking Status: Never smoker Does the pt drink ETOH?: No Does the pt have substance abuse?: No - Family History Family history: reports: Non contributory - Immunizations Immunizations are current?: Yes PD ED PE NORMAL - Vitals Vital signs reviewed: Yes - General General: Other (Slow to answer questions but pleasant and cooperative) - HEENT HEENT: PERRL, EOMI - Neck Neck: Supple, no meningeal sign, No bony TTP - Cardiac Cardiac: RRR, No murmur - Respiratory Respiratory: No respiratory distress, Clear bilaterally - Abdomen Abdomen: Normal bowel sounds, Soft, Non tender - Back Back: No CVA TTP, No spinal TTP - Derm Derm: Normal color, Warm and dry - Extremities Extremities: No edema, No calf tenderness / cord - Neuro Neuro: Alert and oriented X 3, Normal speech Eye Opening: Spontaneous Motor: Obeys Commands Verbal: Oriented GCS Score: 15 - Psych Psych: Normal mood, Normal affect Results - Vitals Vitals: Vital Signs - 24 hr 09/26/18 11:27 Temperature 36.4 C L Heart Rate 55 L Respiratory 14 Rate Blood Pressure 151/63 H O2 Saturation 100 Oxygen O2 Source Room air - EKG (time done) 1139 Rate: Rate (enter#) (53) Rhythm: NSR (w pac) [place]: Normal QRS: LVH Ischemia: Non specific changes (flat lateral T waves). No: ST elevation c/w ischemia, ST elevation c/w repol, ST depression Computer interpretation: Agree with computer - Labs Labs: Laboratory Tests 09/26/18 09/26/18 09/26/18 11:47 11:47 11:47 WBC 7.8 RBC 4.85 Hgb 13.9 Hct 42.6 MCV 87.8 MCH 28.8 MCHC 32.8 RDW 13.9 Plt Count 264 MPV 9.3 Neut # (Auto) 5.8 Lymph # (Auto) 1.2 L [place] # (Auto) 0.5 Eos # (Auto) 0.3 Baso # (Auto) 0.0 Absolute Nucleated RBC 0.00 Nucleated RBC % 0.0 Sodium 142 Potassium 3.9 Chloride 101 Carbon Dioxide 29 Anion Gap 12.0 BUN 22 H Creatinine 0.9 Estimated GFR (MDRD) 60 L Glucose 112 H Calcium 9.6 Total Bilirubin 0.8 AST 21 ALT < 10 L Alkaline Phosphatase 54 Troponin I < 0.04 Total Protein 6.8 Albumin 4.1 Globulin 2.7 Albumin/Globulin Ratio 1.5 Lipase 22 Urine Color Urine Clarity Urine pH Ur Specific [place] Urine Protein Urine Glucose (UA) Urine Ketones Urine Occult Blood Urine Nitrite Urine Bilirubin Urine Urobilinogen Ur Leukocyte Esterase Ur Microscopic Review Urine Culture Comments 09/26/18 11:57 WBC RBC Hgb Hct MCV MCH MCHC RDW Plt Count MPV Neut # (Auto) Lymph # (Auto) [place] # (Auto) Eos # (Auto) Baso # (Auto) Absolute Nucleated RBC Nucleated RBC % Sodium Potassium Chloride Carbon Dioxide Anion Gap BUN Creatinine Estimated GFR (MDRD) Glucose Calcium Total Bilirubin AST ALT Alkaline Phosphatase Troponin I Total Protein Albumin Globulin Albumin/Globulin Ratio Lipase Urine Color YELLOW Urine Clarity CLEAR Urine pH 6.0 Ur Specific [place] <=1.005 Urine Protein NEGATIVE Urine Glucose (UA) NEGATIVE Urine Ketones NEGATIVE Urine Occult Blood NEGATIVE Urine Nitrite NEGATIVE Urine Bilirubin NEGATIVE Urine Urobilinogen 0.2 (NORMAL) Ur Leukocyte Esterase NEGATIVE Ur Microscopic Review NOT INDICATED Urine Culture Comments NOT INDICATED - Rads (name of study) 1v Chest Radiology: EMP read contemporaneously (NAD, note of post op L ribs from harvest for mandible reconstruction) PD MEDICAL DECISION MAKING - ED course Complexity details: reviewed old records (normal echo 06/30) ED course: 83-year-old woman with a syncopal episode while on the toilet earlier today that was preceded by either abdominal or chest pain, hard to say because where she pointed was sort of in the middle and because of the kyphosis hard to differentiate the 2. She was unconscious for reported 8 minutes. Reported to be pulseless but family was checking for cardiac motion over the breast so hard to say if that was real. She feels fine now. She has LVH on her EKG, echo last year was normal. We discussed goals of care and after that discussion they would like her to be observed for arrhythmia etc. and I spoke with Dr. Marlow for obs at 1:02 PM. Departure - Departure Disposition: ED Place in Observation Clinical Impression: Syncope Qualifiers: Syncope type: unspecified Qualified Code(s): R55 - Syncope and collapse Condition: Fair
[2018-09-26] MEDS ORDERED: ONDANSETRON ODT 4 MG TABLET TL PRN (13:16)
[2018-09-26] MEDS ORDERED: oxyCODONE 5 MG TABLET PO PRN (13:16)
[2018-09-26] MEDS ORDERED: ACETAMINOPHEN 325 MG TABLET PO PRN (13:16)
[2018-09-26] MEDS ORDERED: ONDANSETRON 4 MG/2 ML VIAL IVP PRN (13:16)
[2018-09-26] MEDS ORDERED: SODIUM CHLORIDE FLUSH 0.9% 10 ML SYRINGE IVP PRN (13:16)
--- NOTE | 2018-09-26 16:58 | Ultrasound Report ---
Reason: syncope Procedure Date: 09/26/2018 Accession Number: [id number] / [id number] Procedure: US - Carotid Doppler Complete CPT Code: FULL RESULT: EXAM: BILATERAL CAROTID AND VERTEBRAL ARTERY DUPLEX DOPPLER ULTRASOUND: EXAM DATE: 09/26/2018 04:16 PM CLINICAL HISTORY: Syncope. COMPARISON: None. TECHNIQUE: Grayscale imaging, color Doppler, and duplex spectral Doppler were used to evaluate the carotid and vertebral arteries bilaterally. Static images were obtained. FINDINGS: There is moderate calcified atheromatous plaque at the right carotid bifurcation. No significant left-sided plaque is seen. Normal antegrade flow is present in bilateral vertebral arteries. VELOCITIES (cm/sec): Right CCA mid: PSV 62 cm/sec CCA dist: PSV 55 cm/sec ICA prox: PSV 46 cm/sec, EDV 11 cm/sec ICA mid: PSV 77 cm/sec, EDV 19 cm/sec ICA dist: PSV 63 cm/sec, EDV 18 cm/sec ECA: PSV 100 cm/sec Vert: PSV 55 cm/sec ICA/CCA: 1.01 Left CCA mid: PSV 63 cm/sec CCA dist: PSV 59 cm/sec ICA prox: PSV 49 cm/sec, EDV 11 cm/sec ICA mid: PSV 56 cm/sec, EDV 12 cm/sec ICA dist: PSV 53 cm/sec, EDV 15 cm/sec ECA: PSV 88 cm/sec Vert: PSV 55 cm/sec ICA/CCA: 0.88 ICA diameter stenosis: Right: <50% by velocity and <70% by NASCET criteria. Left: <50% by velocity and <70% by NASCET criteria. IMPRESSION: 1. There is moderate calcified atheromatous plaque at the right carotid bifurcation. 2. In the right carotid artery there are no elevated carotid artery velocities to suggest hemodynamically significant stenosis. 3. In the left carotid artery there are no elevated carotid artery velocities to suggest hemodynamically significant stenosis. 4. Normal antegrade flow is present in bilateral vertebral arteries. General Recommendations: Stenosis =50% ICA - Follow-up ultrasound 6-12 months Stenosis <50% ICA - High Risk Patient with plaque - Follow-up ultrasound 1-2 years Normal Study but High Risk Patient - Follow-up ultrasound 3-5 years Management recommendations and diagnostic criteria are based on current IAC endorsed standards in Carotid Artery Stenosis: Grayscale and Doppler Ultrasound Diagnosis. Validated velocity measurements with angiographic measurements and velocity criteria are extrapolated from diameter data as defined by the Society of Radiologists in Ultrasound Consensus Conference Radiology 2003; 229;340-346. RADIA
--- NOTE | 2018-09-26 17:21 | HISTORY & PHYSICAL EXAMINATION ---
Chief Complaint - Chief Complaint Chief Complaint: Syncope <Nettie Garza - Last Filed: 09/26/18 18:28> History of Present Illness - Admitted From Admitted From:: Emergency Department - History Obtained From History obtained from: Patent, daughters, records. Exam Limitations: None <Nettie Garza - Last Filed: 09/26/18 18:28> - History of Present Illness HPI Comment/Other: This devika 83 y/o female with a history of Parkinson's disease and hypertension presents to the Emergency department after a syncopal episode that occurred at home this morning. The patient reports she was on the toilet, had a bowel movement, then tried bearing down to see if the evacuation was complete. With this, she felt nauseated, called to her daughters for help, then lost consciousness. She does not report pain or dizziness prior to losing consciousness. Upon awakening, she was asymptomatic just confused as to what had happened. In ROS, she states she has felt fatigued over the past few months. She has describes intermittent prodrome-like visual symptoms that she describes as "seeing zigzags" but no headaches. These have occurred for approximately two years and each last about 20 minutes. She could not describe their frequency but stated they seem to be more frequent lately. She has recently been sneezing which she attributes to her allergies, denies nasal congestion or sore throat. She has had mild chronic dyspnea for years, feeling like she can't take a very deep breath (likely due to Parkinson's disease and very kyphosis). She also reports chronic loose stools for approximately 1 year, having bowel movements once every other day. She reports chronic left shoulder pain with left hand ne uropathy and more recently b/l leg cramping. She is wheelchair bound and lives with her daughter on [facility]. Her syncopal episode was unlikely cardiac related as her EKG was normal, she denies chest pain, and her Echo one year ago was normal. Given her history of baring down prior to her syncopal episode, this is likely vasovagal. She has been admitted to the hospital to monitor on telemetry. We will also check orthostatics. (Nettie Garza) History - Past Medical History Cardiovascular: reports: None, Hypertension Respiratory: reports: None Neuro: reports: Parkinson's Endocrine/Autoimmune: reports: None GI: reports: None RESEARCH ANTHROPOLOGIST: reports: None : reports: None HEENT: reports: Other (reports intermittent episodes of "zigzags" in vision which last ~20mins. x2 years, more frequently lately) Psych: reports: None Musculoskeletal: reports: Osteoporosis, Other Derm: reports: None MRSA Hx?: No - Past Surgical History Ortho: reports: Hip replacement, Other - Family & Social History Family History: Mother: , Father: Family History Comment/Other: Unsure of parents medical history Living arrangement: At home Living Situation: With family Social History Notes: Wheelchair bound. Lives at home with daughter who assists with care. Able to feed self. - Substance History Use: Uses substance without health or social issues: NONE, Tobacco (History of smoking: from age [age] smoked 1 pack/week) Abuse: Recurrent use of substance despite neg consequences: NONE Dependence: Experiences withdrawal or developed tolerances: NONE - POLST POLST Status: Full Code <Nettie Garza - Last Filed: 09/26/18 18:28> Meds/Allgy <Nettie Garza - Last Filed: 09/26/18 18:28> <Ama Marlow - Last Filed: 09/26/18 19:50> - Home Medications Home Medications: Ambulatory Orders Medication Instructions Recorded Confirmed Carbidopa/Levodopa 1 each PO QID 06/21/17 09/26/18 [Carbidopa-Levodopa 25-250 Tab] Potassium Chloride 20 meq PO BID 06/21/17 09/26/18 Triamterene/Hydrochlorothiazid 1 each PO DAILY 06/21/17 09/26/18 [Triamterene-Hctz 37.5-25 mg Cp] Acetaminophen [Tylenol] 650 mg PO Q6H PRN #30 tab 06/23/17 09/26/18 Lisinopril 10 mg PO DAILY #30 tablet 06/23/17 09/26/18 Gabapentin 300 mg PO QPM 09/26/18 09/26/18 Omeprazole 20 mg PO DAILY 09/26/18 09/26/18 hydrALAZINE [Apresoline] 10 mg PO TID 09/26/18 09/26/18 - Allergies Allergies/Adverse Reactions: Allergies Allergy/AdvReac Type Severity Reaction Status Date / Time latex Allergy Intermediate Hives Verified 09/26/18 11:31 adhesive tape Allergy Itching Verified 09/26/18 17:25 Review of Systems - Respiratory Respiratory: reports: Other (Mild, feels like she can't take a deep breath for years now- likely d/t parkinsons and kyphosis) - Gastrointestinal Gastrointestinal: reports: Diarrhea (Loose stools x 1 year, every other day BMs) - Musculoskeletal Musculoskeletal: reports: Joint pain (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 She has been wheelchair bound for about 2 years. She lives on [facility] with her daughter. She has two other daughters, one nearby and another in [facility]. Her daughter helps her with many of her ADLs. She is able to feed herself regularly and write. (Nettie Garza) Exam - Vital Signs Reviewed Vital Signs: Yes - Physical Exam General Appearance: positive: No acute distress, Alert. negative: Mild distress, Moderate distress, Severe distress, Anxious, Lethargic Eyes Bilateral: positive: Normal inspection, PERRL, No lid inflammation, Conjunctivae nml, No scleral icterus ENT: positive: ENT inspection nml, Pharynx nml, No signs of dehydration. negative: Purulent nasal drainage, Pharyngeal erythema, Oral lesions, Dry mucous membranes Neck: positive: Nml inspection, Thyroid nml, No JVD, Trachea midline. negative: Thyromegaly, Lymphadenopathy (R), Lymphadenopathy (L), Carotid bruit, Swelling/bruising, Tracheal deviation Respiratory: positive: Chest non-tender, No respiratory distress, Breath sounds nml. negative: Wheezes, Rales, Rhonchi Cardiovascular: positive: Regular rate & rhythm, No murmur, No gallop. negative: Irregularly irregular, Extrasystoles, Tachycardia, Bradycardia, PMI displaced laterally, JVD present, Systolic murmur, Diastolic murmur, Gallop/S3, Gallop/S4, Friction rub, Decreased pulse(s), Crepitus Peripheral Pulses: positive: 1+ Abdomen: positive: Non-tender, No organomegaly, Nml bowel sounds, No distention. negative: Tenderness, Guarding, Rebound, Hepatomegaly, Splenomegaly, Mass, Abnml bowel sounds, Bruit, Other Skin: positive: Color nml, No rash, Warm, Dry. negative: Cyanosis, Diaphoresis, Pallor, Skin rash Extremities: positive: Non-tender, Nml appearance Neurologic/Psychiatric: positive: Oriented x3. negative: Disoriented to person, Disoriented to place, Disoriented to time, Weakness, Sensory loss, Facial droop, Slurred/abnml speech, Depressed mood/affect (Slight rigidy and bradykinesia d/t Parkinsons) <GregNettie - Last Filed: 09/26/18 18:28> - Vital Signs Vital Signs: Vital Signs x48h Temp Pulse Resp BP Pulse Ox 09/26/18 14:17 36.7 C 69 24 165/66 H 99 Conclusion/Plan - Problem List (1) Syncope Conclusion/Plan: Patient presents to the Emergency department after a syncopal episode that occurred at home this morning. The patient reports she was on the toilet, had a bowel movement, then tried bearing down to see if the evacuation was complete. With this, she felt nauseated, called to her daughters for help, then lost consciousness. She does not report pain or dizziness prior to losing consciousness. Upon awakening, she was asymptomatic just confused as to what had happened. Daughters were present for her syncopy and assisted her to the ground. In the ED, her EKG showed SR with LVH. Her echo from 1 year ago was unremarkable. She denies CP. On telemetry she remains SB-SR 55-70s. Her syncopal episode was likely not-cardiac related, though we will keep her on telemetry overnight. She was sitting at the time of her syncope, so orthostatic less likely. We will check orthostatics. Considering she was baring down prior to her syncope, this was likely a vasovagal event. Patient and family were educated on the risk syncope with baring down. Qualifiers: Syncope type: unspecified Qualified Code(s): R55 - Syncope and collapse (2) Parkinson disease Conclusion/Plan: Parkinson's with bradykinesia, rigidity and postural instability. Cognitively intact. Wheelchair bound. Lives with daughter. Plan to continue her home Parkinson's regimen: Carbidopa-Levodopa 1 tab PO QID Gabapentin 300mg PO QPM (3) Ocular migraine Conclusion/Plan: Patient reports experiencing visual disturbances which she describes as "zigzags". She has experienced these for approximately 2 years. She was unable to quantify how frequently she has these, but feels the are occurring more frequently lately. These episodes last about 20 minutes. She does not experience headache or any other symptoms. Recommend patient to follow-up outpatient with her neurologist. (4) HTN (hypertension) Conclusion/Plan: History of HTN. SBP 150-160s this admission. Given her syncopal episode today, we will closely monitor her BP. If remains stable, plan to resume her home antihypertensives: Triamterene/Hydrochlorothiazide 1 tab PO daily Lisinopril 10mg PO daily Hydralazine 10mg TID. - Lab Results Seymour Lovelace: 09/26/18 11:47 09/26/18 11:47 <Nettie Garza - Last Filed: 09/26/18 18:28> - Lab Results Seymour Lovelace: 09/26/18 11:47 09/26/18 11:47 <Ama Marlow - Last Filed: 09/26/18 19:50> - Other Other Results/Comments: Patient has been seen and examined by myself in addition to students exam. History reviewed, past medical history reviewed. Physical physical examination is as above in student note. At this time the patient appears to have had vasovagal syncope while sitting on the toilet having a bowel movement. There is no valvular heart disease, arrhythmia, GA, seizure manifestation evident. I anticipate her needing to be discharged tomorrow. Carotid Dopplers will be ordered for completeness sake. (Ama Marlow) Core Measures - Anticipated LOS I expect patient to be DC'd or transferred within 96 hours.: Yes - DVT/VTE - Prophylaxis VTE/DVT Device ordered at admit?: Yes <Ama Marlow - Last Filed: 09/26/18 19:50>
[2018-09-26] MEDS ORDERED: GABAPENTIN 300 MG CAPSULE PO SCH (21:00)
[2018-09-26] MEDS: POTASSIUM CHLORIDE 10 MEQ CAPSULE PO SCH (21:09)
[2018-09-26] MEDS: CARBIDOPA/LEVODOPA 25 MG/250 MG TABLET PO SCH (21:10)
[2018-09-26] MEDS: SODIUM CHLORIDE FLUSH 0.9% 10 ML SYRINGE IVP SCH ×2 (21:10→23:51)
[2018-09-26] MEDS: hydrALAZINE 10 MG TABLET PO SCH (22:10)
[2018-09-27] MEDS: hydrALAZINE 10 MG TABLET PO SCH (05:24)
--- NOTE | 2018-09-27 08:14 | Discharge Plan ---
Discharge Plan Disposition: 01 Home, Self Care Condition: Fair Diet: Regular Activity Restrictions: Activity as Tolerated Shower Restrictions: No Driving Restrictions: Yes (no driving) Assistance Devices: Walker Additional Instructions or Follow Up instructions: You were placed in observation because of fainting while sitting on the toilet. In Parkinson's disease, which is a disease you have, your nervous system does not work correctly. And sometimes pulse and blood pressure can be disrupted especially if you are straining such as going to the bathroom. We think that it stimulated a nerve impulse reflex called vasovagal syncope. That caused you to faint. We have not found any signs of infection. You did not have a seizure. Your heart rhythm was normal. In the arteries to your neck are open. You do have some blockages with plaques on the right side. However it is not enough to cause you to faint nor is it enough to treat with surgery at this time. We are discharging you in stable condition. We would like you to see your primary care provider, Andrew Costa, in the next 1 to 2 weeks. No Smoking: If you smoke, Please STOP! Call for help.
[2018-09-27 08:54] VITALS: BP 135/68
[2018-09-27] MEDS ORDERED: POLYETHYLENE GLYCOL 3350 17 GM PACKET PO SCH (09:00)
[2018-09-27] MEDS ORDERED: LISINOPRIL 5 MG TABLET PO SCH (09:00)
[2018-09-27] MEDS: POTASSIUM CHLORIDE 10 MEQ CAPSULE PO SCH (09:06)
[2018-09-27] MEDS: SODIUM CHLORIDE FLUSH 0.9% 10 ML SYRINGE IVP SCH (09:07)
[2018-09-27] MEDS: CARBIDOPA/LEVODOPA 25 MG/250 MG TABLET PO SCH (09:07)
--- NOTE | 2018-09-28 02:47 | DISCHARGE SUMMARY ---
Physician: Ama Marlow MD DATE OF ADMISSION: 09/26/2018 DATE OF DISCHARGE: 09/27/2018 DISCHARGE DIAGNOSES 1. Vasovagal syncope. 2. Parkinson disease with probable autonomic dysfunction. 3. Ocular migraines. 4. Hypertension. DISCHARGE MEDICATIONS 1. Carbidopa/levodopa 25/250 mg tablet p.o. q.i.d. 2. Gabapentin 300 mg p.o. q.p.m. 3. Hydralazine 10 mg p.o. t.i.d. 4. Omeprazole 20 mg daily. 5. Potassium chloride 20 mEq p.o. b.i.d. 6. Triamterene/hydrochlorothiazide 37.5/25 daily. 7. Tylenol 650 mg every 6 hours as needed for pain. 8. Lisinopril 10 mg p.o. daily. PRINCIPAL PROCEDURES 1. Chest x-ray with no active cardiopulmonary disease. 2. Carotid Doppler study with moderate calcified atheromatous plaque at the right carotid bifurcation, but less than 50% stenosis, and left carotid artery without any stenosis or plaquing. HOSPITAL COURSE: This is an absolutely delightful 83-year-old female who has end-stage Parkinson disease. She lives with her daughter. Another daughter came to visit from [place]. The two daughters were outside the bathroom and were letting mom have her privacy, on the morning of admission, to have a bowel movement. The patient states that while on the toilet, she was straining to bear down and suddenly lost consciousness. She does remember having an upset stomach, epigastric discomfort and some nausea and maybe sweating, she does not remember, before she passed out. According to her daughter, they laid her on the floor, and she was out for about 8 minutes. They did not think they could feel a pulse. They called EMS, and the patient had a pulse and a pressure. EMS stated she was in sinus. In the emergency room, she was evaluated by emergency room physician, where she had a temperature of 36.4, heart rate of 55, respirations of 14, blood pressure 151/63, and she was 100% saturated on room air. No meningeal signs of respiratory distress on exam. She was alert and oriented with normal speech in spite of her parkinsonian history. Her laboratory work was essentially normal. It was prudent to place her in observation overnight to make sure she did not have further syncope. She describes having chronic loose stools for a year, chronic left shoulder pain, and being wheelchair bound and living with her daughter. She was placed in telemetry, and overnight there were no arrhythmias. Carotid Dopplers were done and negative. Echocardiogram was not done because she had one in June 2017, when she had an ejection fraction of 55%-60%, no hemodynamically significant valvular heart disease. Between then and now, the patient has not had any change in cardiovascular status, and her exam did not indicate carotid stenosis. A repeat set of troponins were done and negative. The patient was back to baseline really within a matter of hours. Orthostatics were done on the day of discharge, where blood pressure supine was 135/68, blood pressure sitting was 131/64, blood pressure standing was 141/73. Pulse with that respectively was 69, 70, then 80. The patient was felt stable to return to home. I do believe she had vasovagal syncope while sitting on the toilet, superimposed on chronic autonomic dysfunction from her Parkinson disease. She is discharged in stable condition. PHYSICAL EXAMINATION VITAL SIGNS: Temperature is 36.7. Orthostatic blood pressures as above. 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 LUNGS: Clear. HEART: Regular rate and rhythm. No murmurs, rubs, or gallops. ABDOMEN: Benign and feet with minimal edema. PLAN: She is asked to follow up with her primary care provider in the next one to two weeks for completeness' sake to make sure continuity of care occurs. TD: 09/27/2018 16:38 GREGORIA
== END 2018-09-27 12:47 | disposition home or self-care (01) ==
LOC: EDUNIT# → ED 11:24 → MS2 13:16
PROVIDERS: ADMIT Specialist; ATTEND Specialist
DX: R55 Syncope and collapse (principal); G20 Parkinson's disease; G43.109 Migraine with aura, not intractable, without status migrainosus; I10 Essential (primary) hypertension; G62.9 Polyneuropathy, unspecified; M25.512 Pain in left shoulder; G89.29 Other chronic pain; Z99.3 Dependence on wheelchair; I65.21 Occlusion and stenosis of right carotid artery; Z87.891 Personal history of nicotine dependence
CPT/HCPCS: 36415; 71045; 80053; 81003; 83690; 84484; 85025; 93005; 93880; 99284; 99285; A9270; G0378; 81001; 87086

== ENCOUNTER 2018-09-30 18:12 | Outpatient (CLI) | payer MEDICARE, OTHER ==
--- NOTE | 2018-09-30 19:08 | CONSULTATION NOTE ---
Palliative Care Consultation - Referral Referring Provider: Dr Jimenez Time of Visit: Alhaji 09/30/2018. 11:00 - 13:00 Referral setting: Home Referral Reason: Parkinson's disease - Information Sources Records reviewed: Previous records reviewed History/Review of Systems obtained from: Patient, Family Exam limitations: Clinical condition (dysarthria, hypophonia) - History of Present Illness Brief History of Present Illness: Thank you, Dr. Jimenez, for asking the palliative care consult service to be involved in the care of your patient. I am asked to provide support regarding advanced care planning and assistance with symptom management. Face to Face for Home Health PT, OT, Speech. Patient has advanced Parkinson disease and is now homebound and wheelchair bound, with no weight bearing ability and has difficulty with transfers. She also has increasing dysphagia, as well as dysarthria and hypophonia which is emotionally troubling for the patient, and is causing anxiety and social isolation. She would benefit from PT for evaluation for strength and mobility, as well as evaluation for wheelchair and Archana. She would benefit from OT for help on transfers, evaluation of home environment and recommendations. She would benefit from Speech therapy for dysphagia and evaluation of voice. --- 83-year-old female with advanced stage Parkinson's disease, wheelchair bound, with dysarthria (slow speech, not slurred) and hypophonia. She has been living at her daughter's home for the past two years. Medical history: Parkinson's disease; h/o frequent falls; HTN; HLD; depression; anxiety; chronic diarrhea; CKD 3; h/o TIA; GERD; osteoporosis; cervical spinal stenosis; meningioma, brain; h/o fracture of left inferior pubic ramus Jun 2017; h/o fractured humerus; h/o fractured femur; h/o fractured scapula; h/o reconstructed jaw bone; h/o C diff colitis 2017 while at [facility]. Recent hospital visits were 09/27/18 to the ED for vasovagal syncope. She was placed in observation and released in stable condition, with recommendation to follow up with PCP in the next 1-2 weeks. June 2017 she went to hospital for a left-side pelvic fracture from a fall (she started falling frequently after having been started on new medications, amantadine and Namenda). She was in rehab at [facility] for approximately 3 months. She contracted C diff infection while there. Daughter, Cara, has requested palliative care service for support with symptom management and advance care planning. Patient originally moved in with Cara and her partner two years ago. She had been living in [facility]. When she moved here, she was ambulatory with a walker, and she has since become wheelchair bound. Up until her 70s, she was very active, even competing in half-marathons. In her early 80s she was still walking, by 83ish she was using a walker. She was diagnosed with Parkinson's 2 years ago,and it's suspected it manifested about 5 years prior to that Patient's decline has accelerated recently. She used to go out for singing, or the the [facility] adult day care, but she no longer attends these activities because she can no longer sit for 4-5 hours at a time. She can no longer support her trunk / sit up independently. She reports leg, especially left leg, spontaneously raises on its own, and that gabapentin was recently started for this. She becomes tearful and emotional as she speaks about losing her voice, not being able to sing, and losing her physical abilities, being no longer able to walk and be active as she previously was. Patient has chronic pain in L shoulder, which improves with Botox injections every 3 months. Naproxen 220mg also helps. She also reports blurring vision and intermittent aura-like visual phenomena, described as "migraines without pain." These have been occurring with more frequently. She reports increased fatigue, so that instead of being able to do two activities, they can plan only one activity. Patient reports chronic loose stools, has had bowel incontinence 2-3 years. She has a bowel movement every 1-2 days, and on the days with a bowel movement, her daughter gives her immodium. She has intermittent insomnia, difficulty falling asleep. She usually uses melatonin 3mg, but has none currently. Cara has started her on a very small dose of CBD tincture: 40mg CBD, 80mg THC. Cara reports this has helped. Patient reports having some weird dreams Medical/Surgical History - Past Medical History Cardiovascular: reports: None (moderate calcified atheromatous plaque at R carotid bifurcation), Hypertension, High cholesterol, Other (moderate calcified atheromatous plaque at R carotid bifurcation) Respiratory: reports: None Neuro: TIA, Parkinson's Endocrine/Autoimmune: reports: None GI: reports: GERD, Chronic diarrhea, Other (CKD III) SENIOR BUSINESS CONSULTANT: reports: None : reports: None HEENT: reports: Other (reports intermittent episodes of "zigzags" in vision which last ~20mins. x2 years, more frequently lately) Psych: reports: Depression, Anxiety Musculoskeletal: reports: Osteoporosis, Other Derm: reports: None MRSA Hx?: No - Past Surgical History Ortho: reports: Hip replacement, Other (Fracured pelvis/sacrum Jun 2017. Fractured humerus Mar 2016. Fractured femur May 2015. Fractured scapula. Rebuilt jaw bone.) - Substance History Use: Uses substance without health or social issues: NONE, Tobacco (History of smoking: from age [age] smoked 1 pack/week) Social History - Living Situation Living arrangement: At home Living Situation: With family Support System: Patient is , she moved from [facility] to [facility], lives with daughter Cara and her partner. Cara Castillo, daughter/CG'r/DPOA. [phone] She has two other daughters: Simi and another daughter, who both live in the area; [place] 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 She was active into her 70s, and was still ambulatory into her 80s, has been in a wheelchair about 2 years. She had been going to the monthly Parkinson's Disease support group at [facility] in [place], but it is now difficult for her to travel/sit for long periods. Patient is on [facility] program, receives 4 hours caregiver support every . Family History - Family History Family History Comment/Other: Non contributory Medications/Allergies - Medications Home Medications: Ambulatory Orders Medication Instructions Recorded Confirmed Potassium Chloride 20 meq PO BID 06/21/17 09/30/18 Triamterene/Hydrochlorothiazid 1 each PO DAILY 06/21/17 09/30/18 [Triamterene-Hctz 37.5-25 mg Cp] Acetaminophen [Tylenol] 650 mg PO Q6H PRN #30 tab 06/23/17 09/30/18 Lisinopril 10 mg PO DAILY #30 tablet 06/23/17 09/30/18 Gabapentin 300 mg PO QPM 09/26/18 09/30/18 Omeprazole 20 mg PO DAILY 09/26/18 09/30/18 hydrALAZINE [Apresoline] 10 mg PO TID 09/26/18 09/30/18 Carbidopa/Levodopa 1 tab PO QID 09/30/18 09/30/18 [Carbidopa-Levodopa 25-100 Tab] Lidocaine Patch 5% [Lidoderm Patch] 1 ea TOP DAILY PRN 09/30/18 09/30/18 Naproxen Sodium 220 mg PO PRN 09/30/18 - Allergies Allergies/Adverse Reactions: Allergies Allergy/AdvReac Type Severity Reaction Status Date / Time latex Allergy Intermediate Hives Verified 09/26/18 11:31 adhesive tape Allergy Itching Verified 09/26/18 17:25 Review of Systems - Constitutional Constitutional: reports: Fatigue, Weakness, Poor appetite, Weight gain (106 lbs this weekend. 91.6 lbs 07/08/18. 104 lbs 10/02/17.) - Ears, Nose & Throat Ears, Nose & Throat: reports: Hearing loss, Hearing aids, Other (tearing from L eye; history of seasonal allergies) - Cardiovascular Cardiovascular: reports: Decr. exercise tolerance. denies: Chest pain, Edema - Respiratory Respiratory: reports: SOB at rest (kyphosis) - Gastrointestinal Gastrointestinal: reports: Diarrhea (every 1-2 days), Poor appetite, Other (history of C diff infection in 2018 while at [facility]). denies: Constipation, Black stools - Musculoskeletal Musculoskeletal: reports: Stiffness, Limited range of motion, Muscle weakness, Joint pain (L shoulder and arm), Assistive devices (wheelchair), Transfer issues (requierd 1005 transfer assistance; has a lift in the staircase), Other (LLE lifts up in bed on its own) - Integumentary Integumentary: reports: Dryness - Neurological Neurological: reports: General weakness, Focal weakness (lower extremities), Other - Psychiatric Psychiatric: denies: Depression Physical Exam - Vital Signs Temperature: 96.5 F Pulse Rate: 94 O2 Saturation: 95 (room air) Blood Pressure: 107/62 (wrist cuff) - Physical Exam General Appearance: positive: Alert, Moderate distress (repeatedly tearful t hroughout the visit when discussing her disease/symptoms), Other (kyphosis) Eyes Bilateral: positive: Normal inspection, Other (L eye excessive tearing) ENT: positive: No signs of dehydration Neck: positive: Trachea midline, Other (chokes with swallowing liquids (dysphagia)) Cardiovascular: positive: No murmur, Irregular Respiratory: positive: Chest non-tender, No respiratory distress, Diminished throughout. negative: Wheezes, Rhonchi Skin: positive: Dryness Extremities: positive: No pedal edema Neurologic/Psychiatric: positive: Oriented x3, Depressed mood/affect (episodes of tearfulness) Palliative Care - POLST Patient has POLST: Yes POLST Status: DNR, Selective Treatment Pain: No pain Tiredness/Fatigue: Moderate (4-6) Drowsiness/Sedation: None Depression: None Anorexia: Moderate (4-6) Sleep: Variable sleep pattern (intermittent insomnia) Constipation: No Performance Status: declining function wheelchair bound requires 100% assistance with transfers 0% weight bearing increased fatigue poor appetite recent h/o vasovagal syncope dysarthria (very slow speech, not slurred) hypophonia PPS 40% - Palliative Care Discussion: Patient is easily moved to tears when speaking about her disease and symptoms. She expresses grief and regret over losing her voice, no longer being able to sing with a support group, losing her mobility and independence. Palliative care offered supportive listening and presence. The patient and daughter were both supportive of starting her on speech therapy, with the goal of improving voice and dysphagia. Daughter would appreciative Home Health OT and PT for help with mobility, transfers, bathroom and environmental assessment. Discussion with Cara, provided anticipatory guidance on trajectory of disease, and increased risk of aspiration pneumonia, increased risk of fractures due to fall risk. Patient had a POLST dated 04/01/18 which was CPR and full code. Goals of care were discussed at length, with both the patient and CHARLEY Marroquin confirming that they previously discussed this, and DNR is in keeping with patient's goals of care, and selective treatment, hospitalization for stabilization and treatment of reversible conditions, with no tube feeding, and antibiotics for comfort. The new POLST was signed, the patient retained the original. [facility], she would like [facility] visits. Results - Lab Results Lab results reviewed: Yes Lab and Imaging Results: 09/26/18: Na 142 K+ 3.9 Chl 101 CO2 29 BUN 22 H Cr 0.9 GFR 60 L Glu 112 H Calcium 9.6 Total bilirubin 0.8 AST 21 ALT <10 L Alk Phos 54 Total protein 6.8 Albumin 4.1 Globulin 2.7 Albumin/Globulin Ratio 1.5 Troponin I 0.04 07/16/18: Triglycerides 113 Cholesterol 163 LDL 87 VLDL 23 HDL 53 L LDL/HDL ratio 1.6 Impression and Recommendations - Palliative Care Impression: 83-year-old female with advanced stage Parkinson's disease, wheelchair bound, with dysarthria (slow speech, not slurred) and hypophonia. She has been living at her daughter's home for the past two years. Patient would benefit from Home Health physical therapy, occupational therapy, and speech therapy for help with mobility, transfers, wheelchair, strengthening, dysphagia, and voice therapy. Palliative Care will provide ongoing support for symptom management and goals of care. Recommendations/Counseling Done: Parkinson's disease: Advanced stage 5, patient is wheelchair bound, unable to hold up trunk, requires 100% assistance with transfers. Since patient is homebound, Palliative Care is recommending Home Health physical therapy, occupational therapy, and speech therapy for help with mobility, transfers, wheelchair, strengthening, dysphagia, and voice therapy. Continue Sinemet 25/100mg four times a day. Neurologist is Dr José Luis Estrada, , next visit is in October. HTN: BP today 107/62. Continue hydralazine, triamterene-Hctz, lisinopril, potassium. Left shoulder pain: Naproxen and Tylenol as needed. Receives Botox injections every 3 months. Advance care planning: New POLST signed: DNR and comfort care, OK for transfers to hospital for stabilization and treatment of reversible conditions. Patient being referred to [facility] services for spiritual support. Patient gets 4 hours weekly () of caregiver support with [facility]. Daughter and patient agree to continuing Palliative Care service. Daughter would like a follow up call in 3-4 weeks and as needed. Time Spent: 120 minutes were spent with more than 50% of the time spent on counseling, education, providing anticipatory guidance, and coordination of care with family.
== END 2018-09-30 18:13 | disposition home or self-care (01) ==
LOC: PC 18:12
PROVIDERS: ATTEND Nurse Practitioner
DX: Z51.5 Encounter for palliative care (principal); G20 Parkinson's disease; R47.1 Dysarthria and anarthria; R13.10 Dysphagia, unspecified; R49.8 Other voice and resonance disorders; I12.9 Hypertensive chronic kidney disease with stage 1 through stage 4 chronic kidney disease, or unspecified chronic kidney disease; N18.3 Chronic kidney disease, stage 3 (moderate); M25.512 Pain in left shoulder; G89.29 Other chronic pain; F41.9 Anxiety disorder, unspecified; G47.00 Insomnia, unspecified; K52.9 Noninfective gastroenteritis and colitis, unspecified; H53.8 Other visual disturbances; Z99.3 Dependence on wheelchair; Z60.4 Social exclusion and rejection; Z91.81 History of falling; Z79.1 Long term (current) use of non-steroidal anti-inflammatories (NSAID); Z87.891 Personal history of nicotine dependence; Z79.899 Other long term (current) drug therapy; Z86.19 Personal history of other infectious and parasitic diseases; Z66 Do not resuscitate
CPT/HCPCS: 99345

== ENCOUNTER 2018-11-17 | Outpatient (CLI) | payer MEDICARE, OTHER | END 2018-11-17 15:01 | disposition home or self-care (01) | DX: Z51.5 Encounter for palliative care (principal); R47.1 Dysarthria and anarthria; R47.89 Other speech disturbances; G20 Parkinson's disease; I10 Essential (primary) hypertension; M25.512 Pain in left shoulder; Z79.899 Other long term (current) drug therapy; Z99.3 Dependence on wheelchair; Z91.040 Latex allergy status; Z91.048 Other nonmedicinal substance allergy status; Z66 Do not resuscitate | CPT/HCPCS: 99349 ==

== ENCOUNTER 2019-05-08 13:00 | Outpatient (CLI) | payer MEDICARE, OTHER ==
--- NOTE | 2019-05-08 15:42 | CONSULTATION NOTE ---
Palliative Care Follow Up - Referral Referring Provider: Dr. Manoj Jimenez Time of Visit: [id number] Referral setting: Home Referral Reason: Parkinson's Disease - Information Sources Records reviewed: Previous records reviewed History/Review of Systems obtained from: Patient, Caregiver (daughter, Cara) Exam limitations: Clinical condition (Dysarthria and hypophonia) - History of Present Illness Update Brief HPI Update: [facility] for Home Health PT. Patient has had further decline in her function and is now requiring 100% assistance for transfers from the bed to wheelchair or commode with no weight bearing ability. It is a taxing and considerable effort for her to leave the home. Her daughter has been attempting to provide assistance with passive range of motion. She would benefit from a PT evaluation to provide instruction on additional safety with instructing on transferring as well as education with the daughter, Cara, regarding passive of range of motion exercises to maintain musculature and limit contracture. This is an 83-year-old female with advanced age Parkinson's disease who is wheelchair-bound, with dysarthria and hypophonia who was seen in evaluation today for symptom management. She has been living and cared for by her daughter, Cara, for the past 2 years. Patient has recently completed working with speech, which she and her daughter found helpful. Therapist provided strategies and techniques for her to use, 1 of which she demonstrated today during this visit in regards to relaxing her vocal cords. The patient denies any coughing with meals, however, she does at times have difficulty with pills but per prefers to take them whole and not in pudding or applesauce as suggested by the speech therapist. She has dealt with insomnia where she will "lay in bed staring at the clock", which is improved with the initiation of trazodone. Her daughter reports taking trazodone 100 mg on an almost nightly basis. When the caregiver that comes once a week is due to arrive or she has a scheduled appointment, she will take 50 mg of trazodone in the evenings. She does not nap during the day. She denies any daytime sleepiness. The patient and her daughter have noticed more of a decline in regards to her ability to function. She had previously worked with home health PT, OT, and speech and was discharged in October 2018. She continues to try to do passive range of motion exercises with her daughter and her caregiver that comes once a week. 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 The daughter has been washing the palm routinely and applying goldbaum powder with resolution of the odor. PMHx: Osteoporosis, Parkinson's disease; C.diff; HTN; HLD; depression; anxiety; chronic diarrhea; CKD III; GERD; TIA; meningioma of brain; h/o fracture of left inferior pubic ramus; h/o fracture humerus, femur and scapula. Social History - Living Situation Living arrangement: At home Living Situation: With family (daughter, Cara and her partner, Fili) Support System: Patient grew up in [place] and then relocated to [place], [place] where she lived for many years. She then eventually moved to [place], [place] with her son and was there for approximately 4 years before moving to [facility] to be with her daughter for additional caregiving services. Her daughter, Cara, is her main caregiver and she does not receive support from the rest of the family. 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 She is on [facility] program and receives 4 hours of caregiving support every Saturday. She had approximately 5 visitors over the holidays and enjoyed the visit immensely with her family. She continues to enjoy watching movies, working on her computer and watching new [employer] shows on TV. She recently finished watching [employer] which gave her laughter. Medications/Allergies - Medications Home Medications: Ambulatory Orders Medication Instructions Recorded Confirmed Triamterene/Hydrochlorothiazid 1 each PO DAILY 06/21/17 09/30/18 [Triamterene-Hctz 37.5-25 mg Cp] Acetaminophen [Tylenol] 650 mg PO Q6H PRN #30 tab 06/23/17 09/30/18 lisinopriL [Lisinopril] 10 mg PO DAILY #30 tablet 06/23/17 09/30/18 Gabapentin 300 mg PO QPM 09/26/18 09/30/18 Omeprazole 20 mg PO DAILY 09/26/18 09/30/18 hydrALAZINE [Apresoline] 10 mg PO TID 09/26/18 09/30/18 Carbidopa/Levodopa 1 tab PO QID 09/30/18 09/30/18 [Carbidopa-Levodopa 25-100 Tab] Lidocaine Patch 5% [Lidoderm Patch] 1 ea TOP DAILY PRN 09/30/18 09/30/18 Naproxen Sodium 220 mg PO PRN 09/30/18 Potassium Chloride 20 meq PO BID 11/17/18 11/17/18 Loperamide [Imodium] 2 mg PO DAILY PRN 05/08/19 05/08/19 traZODone [Desyrel] 50 - 100 mg ORAL QPM PRN 05/08/19 05/08/19 - Allergies Allergies/Adverse Reactions: Allergies Allergy/AdvReac Type Severity Reaction Status Date / Time latex Allergy Intermediate Hives Verified 09/26/18 11:31 adhesive tape Allergy Itching Verified 09/26/18 17:25 Review of Systems - Constitutional Constitutional: reports: Weakness, Poor appetite (Reports a lack of appetite but will complete all three meals served to her by her daughter), Weight stable. denies: Fatigue, Fever - Eyes Eyes: reports: Other (intermittent tearing to right eye) - Ears, Nose & Throat Ears, Nose & Throat: denies: Nasal discharge - Cardiovascular Cardiovascular: denies: Palpitations, Chest pain - Respiratory Respiratory: denies: Cough, SOB at rest - Gastrointestinal Gastrointestinal: reports: Diarrhea (History of chronic loose stools and takes immodium 1 tablet almost daily. She has a bowel movement daily or every other day.). denies: Abdominal pain, Constipation, Nausea - Genitourinary Genitourinary: denies: Dysuria - Musculoskeletal Musculoskeletal: reports: Stiffness, Limited range of motion (decreased ROM to left shoulder), Assistive devices (wheelchair bound) - Integumentary Integumentary: reports: Rash (Noted to base of neck along hair line) - Neurological Neurological: reports: General weakness - Psychiatric Psychiatric: denies: Depression - All Other Systems All Other Systems: reports: Reviewed and negative Physical Exam - Vital Signs Temperature: 36.6 C Pulse Rate: 74 O2 Saturation: 97 (on RA) Blood Pressure: 104/58 - Physical Exam General Appearance: positive: No acute distress, Alert, Other (thin, well groomed, sitting OOB in recliner in her bedroom) Eyes Bilateral: positive: Normal inspection Neck: positive: No JVD, Other (thin; no LAD noted) Cardiovascular: positive: Regular rate & rhythm, No murmur, No gallop Respiratory: positive: No respiratory distress, Breath sounds nml. negative: Wheezes, Rales Abdomen: positive: Non-tender, Soft, Nml bowel sounds Skin: positive: Other ((1) Base of occiptal scalp with mild erythema without pruritis near tag of shirt (2) Left axilla without erythema noted (3) Left palm with trimmed nails, no evidence of erythema and skin intact) Extremities: positive: No pedal edema, Other (Contracture to left hand; limited ROM of left shoulder; left leg will spontaneous elevation) Neurologic/Psychiatric: positive: Oriented x3, Weakness (dysarthria, hypophonia) Palliative Care - POLST Patient has POLST: Yes POLST Status: Selective Treatment Pain: No pain Tiredness/Fatigue: None Drowsiness/Sedation: None Nausea: None Anorexia: None, Moderate (4-6) Dyspnea: None Depression: None (Denies depressive symptoms, but due to her Parkinson's disease will cry easily.) Anxiety: None Feelings of wellbeing/Perceived Quality of Life: Acceptable Sleep: Sleeps well, Sleep improved Constipation: No Performance Status: This is an 83-year-old woman who until her 70s was extremely active and participated in half marathons. She sees a steady decline occurring since her original fall, from which she never really recovered. She then developed a broken femur that resulted in use of a walker, and then developed a fracture to her pelvis after sustaining a fall. She is completely wheelchair-bound presently. Requiring 100% assistance for transfers with no weightbearing. She has a history of 2 vasovagal syncopal episodes with the last occurring in November 2018. She requires assistance with most of her ADLs. - Palliative Care Discussion: Regarding her symptom burden, the patient is most distressed by the fact that she has lost her independence due to her lack of mobility. She appropriately acknowledges grief over this loss. Overall she tries to remain upbeat and positive in regards to her daily life. She and her daughter are trying to cope with the symptoms that the Parkinson's disease has presented them such as working with speech therapy which has improved her hypophonia. As well as performing passive range of motion exercises within the home with the goal of the patient being able to maintain some ability to participate in her care as she "does not want to be dependent too much". Her daughter Cara is an attentive caregiver and would benefit from self care to prevent burnout. Cara is looking into trips for herself in 2020. Both the daughter and the patient look forward to the palliative care nurse practitioner visits and the support that this provides. The daughter wishes to continue to pursue looking at getting a visiting sports leadership instructor to visit. Impression and Recommendations - Palliative Care Impression: This is a vibrant 83-year-old woman that is cognitively intact who presents with advanced Parkinson's disease with advancing symptom burden. She has had further functional decline, and is now needing 100% assistance with transfers within the home. She continues to require support with meeting her ADLs. Palliative care to continue to provide support for symptom management and anticipatory guidance. Recommendations/Counseling Done: 1. Severe Parkinson's Disease. Chronic. Progressive. Supportive care and fall precautions. To continue to be followed by neurology with next visit with Dr. Estrada on 06/03/2018. As she is wheelchair bound and requiring 100% assistance with transfers she would benefit from Home PT for her daughter to be educated on additional transfer techniques and passive ROM exercises to loosen contractures and maintain musculature. Continue sinemet 25/100mg QID as ordered by neurology. Reviewed with patient and daughter, Cara, that this is a progressive course and palliative care will continue to follow for symptom management due to complications of parkinson's disease. 2. Skin Irritation. Noted irritation to the base of the scalp likely due to clothing tags with suggestion to cut tags to reduce friction and irritation. Resolved irritation under left axilla, likely due to topical candidiasis and my continue to use goldbaum powder as needed. To the left palm with noted contracture, the skin to the palm of the hand is intact and advised would continue to cleanse the area daily with application of goldbaum. Will continue to monitor and address if change in condition of skin. 3. Appetite. Patient reports anorexia and is maintaining her weight (her clothes continue to fit and not be loose). She desires to have more of an appetite. Introduced the potential use of remeron starting at a low dose for her appetite and insomnia and will consider at this time. 4. Insomnia. Presently controlled with nightly trazodone use per patient and daughter's report. She denies daytime fatigue. Introduced the potential use of remeron in the future for appetite stimulant as well as management of insomnia with removal of trazodone to reduce sedative symptoms. Patient will consider trail of remeron 7.5g qhs if trazodone does not continue to be effective. Continue trazodone 50-100mg nightly PRN for insomnia. Discussed reducing her screen time 30 minutes to 1 hour prior to bed to limit blue light and suggested reading--a suggestion she was open to implementing. 5. Caregiver burden. Discussed with patient and daughter using the wheelchair to go out on the small house porch during nice days to limit additional measures within the home that are taxing to get her outside. Discussed with Cara ways to take care of herself to avoid caregiver burnout. Continue to have caregiver from [facility] 4 hours a week. Cara is considering the use of [employer] for respite to enjoy some small trips next year. Palliative care social work to continue to provide support. Cara is also looking into having a visiting sports leadership instructor visit her and her mother. Time Spent: Total time spent 80 minutes with greater than 50% of time spent in care coordination, counseling, education and anticipatory guidance.
== END 2019-05-08 13:01 | disposition home or self-care (01) ==
LOC: PC 13:00
PROVIDERS: ATTEND Nurse Practitioner Family
DX: Z51.5 Encounter for palliative care (principal); G20 Parkinson's disease; R23.8 Other skin changes; R63.0 Anorexia; G47.00 Insomnia, unspecified; Z79.899 Other long term (current) drug therapy; Z99.3 Dependence on wheelchair; Z87.81 Personal history of (healed) traumatic fracture; Z91.81 History of falling
CPT/HCPCS: 99350

== ENCOUNTER 2019-06-10 13:00 | Outpatient (CLI) | payer MEDICARE, OTHER ==
--- NOTE | 2019-06-10 14:45 | CONSULTATION NOTE ---
Palliative Care Follow Up - Referral Referring Provider: Dr. Manoj Jimenez Time of Visit: [id number] Referral setting: Home Referral Reason: Parkinson's Disease/Insomnia - Information Sources Records reviewed: Previous records reviewed History/Review of Systems obtained from: Patient, Family ( daughter, Cara) Exam limitations: Clinical condition (dysarthria and hypophonia) - History of Present Illness Update Brief HPI Update: This is an 83-year-old female with advanced Parkinson's disease who is wheelchair-bound, with dysarthria and hypophonia who is seen and evaluated evaluated today for symptom management follow-up. She resides with her daughter, Cara, who is her primary caregiver for the last 2 years. She continues to have symptoms of insomnia where she will "lay in bed staring at the clock," she was started on a trial of trazodone which did have some effect but left her feeling fatigued and groggy during the day. Typically she will go to bed in the evening but will not fall asleep until the granite setter hours around 4 AM. Therefore she gets up later in the morning and typically will start her day close to lunchtime. When she was last evaluated by her neurologist on June 03, 2019 her trazodone was discontinued and she was started on mirtazapine 7.5 mg. However, she and her daughter reports that after several day use she was lethargic during the day, not bright and as the patient reported she "physically did not feel good." Therefore they discontinue the medication where she has had improvement. She continues on melatonin nightly. Her daughter has started implementing a CBD tincture in the evenings but it is unknown if this is proven providing any effect. She reports in her "healthy adult years" she never had any difficulty with sleeping. This is become a chronic complaint over the last 2 years. Due to her overall functional decline and increased dependence on her daughter, home health PT came into the home for additional instruction regarding safety, transferring, and passive range of motion exercises so that the patient may maintain musculature and limit contracture. They are performing these exercises almost daily. She continues with a intermittent contracture to her left hand. There has been no recent odor and her daughter continues to apply Goldbond powder as needed. She does report an improvement in her appetite stating that her taste buds have come back and she is now enjoying foods again. They maintain that her weight remains stable. And there has been no change in how her clothes are fitting. Past medical history: osteoporosis, Parkinson's disease, C. difficile, hypertension, hyperlipidemia, depression, anxiety, chronic diarrhea, CKD stage III, GERD, TIA, meningioma of the brain, history of fracture of the left inferior pubic ramus, history of fracture of the humerus, femur, and scapula. Social History - Living Situation Living arrangement: At home Living Situation: With family (daughter, Cara and Cara's partner, Fili) Support System: Patient moved to [facility] approximately 2 years ago for additional caregiving services. Her daughter, is her main caregiver. 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 Since this TRAY CHECKER's last visit the bladder trimmer has visited the family home much to the patient's pleasure. She is on [employer] a program and receives 4 hours of caregiving support every Saturday. She considers her "job" to check her email daily. She enjoys watching movies, sick comes, and working on her computer. Medications/Allergies - Medications Home Medications: Ambulatory Orders Medication Instructions Recorded Confirmed Triamterene/Hydrochlorothiazid 1 each PO DAILY 06/21/17 09/30/18 [Triamterene-Hctz 37.5-25 mg Cp] Acetaminophen [Tylenol] 650 mg PO Q6H PRN #30 tab 06/23/17 09/30/18 lisinopriL [Lisinopril] 10 mg PO DAILY #30 tablet 06/23/17 09/30/18 Gabapentin 300 mg PO QPM 09/26/18 09/30/18 Omeprazole 20 mg PO DAILY 09/26/18 09/30/18 hydrALAZINE [Apresoline] 10 mg PO TID 09/26/18 09/30/18 Carbidopa/Levodopa 1 tab PO QID 09/30/18 09/30/18 [Carbidopa-Levodopa 25-100 Tab] Lidocaine Patch 5% [Lidoderm Patch] 1 ea TOP DAILY PRN 09/30/18 09/30/18 Naproxen Sodium 220 mg PO PRN 09/30/18 Loperamide [Imodium] 2 mg PO DAILY PRN 05/08/19 05/08/19 Extra Strength Tincture Cbd 1 drops PO DAILY PM PRN 06/10/19 Melatonin 3 mg PO DAILY PM 06/10/19 06/10/19 Potassium Chloride 10 meq PO DAILY 06/10/19 06/10/19 - Allergies Allergies/Adverse Reactions: Allergies Allergy/AdvReac Type Severity Reaction Status Date / Time latex Allergy Intermediate Hives Verified 09/26/18 11:31 adhesive tape Allergy Itching Verified 09/26/18 17:25 Review of Systems - Constitutional Constitutional: reports: Weakness, Weight stable. denies: Fatigue, Fever - Eyes Eyes: denies: Irritation - Ears, Nose & Throat Ears, Nose & Throat: denies: Dry mouth - Cardiovascular Cardiovascular: denies: Palpitations, Chest pain - Respiratory Respiratory: denies: Cough, SOB at rest - Gastrointestinal Gastrointestinal: reports: Change in bowel habits (was having chronic loose stools and taking imodium daily but in the last few weeks has been regular with formed stool every other day). denies: Abdominal pain, Nausea, Vomiting - Genitourinary Genitourinary: denies: Dysuria - Musculoskeletal Musculoskeletal: reports: Muscle pain (reports muscles feel tight in the evenings), Stiffness, Limited range of motion (Left shoulder s/p botox injection on 06/03/2019 with neurologist), Assistive devices (wheelchair bound) - Integumentary Integumentary: denies: Rash - Neurological Neurological: reports: General weakness, Abnormal gait (secondary to parkinson's disease) - Psychiatric Psychiatric: denies: Depression Physical Exam - Vital Signs Temperature: 36.6 C Pulse Rate: 74 O2 Saturation: 97 (on RA) Blood Pressure: 134/77 (right wrist cuff) - Physical Exam General Appearance: positive: No acute distress, Alert, Other (thin, well groomed sitting OOB in her recliner) Eyes Bilateral: positive: Normal inspection ENT: positive: Other (+MMM) Neck: positive: Nml inspection, No JVD Cardiovascular: positive: Regular rate & rhythm, No murmur, No gallop Respiratory: positive: No respiratory distress, Breath sounds nml. negative: Diminished in bases, Wheezes Abdomen: positive: Non-tender, Soft, Nml bowel sounds. negative: Distended Skin: positive: Bruising (noted to right wrist, resolving) Extremities: positive: Other (+contracture to left hand; limited ROM of left shoulder) Neurologic/Psychiatric: positive: Oriented x3, Other (+rigidity noted to LLE; +bradykinesia. No visible tremor; strength LLE +4/5 and RLE +3-4/5). negative: Flat affect Palliative Care - POLST Patient has POLST: Yes POLST Status: DNR, Selective Treatment Pain: No pain Tiredness/Fatigue: Mild (1-3) (will experience fatigue first thing in the AM that then resolves) Drowsiness/Sedation: None (Does not nap during the day) Nausea: None Anorexia: None Depression: None Anxiety: Mild (1-3) (Noted in the evenings) Feelings of wellbeing/Perceived Quality of Life: Acceptable Sleep: Variable sleep pattern Constipation: No Performance Status: Patient is wheelchair bound. She requires 100% assistance with transfers without weightbearing. She experienced 3 falls during transfers furring as her feet would slide out from under her. In the last month her daughter had to call for a lift assist. After ensuring that the patient has shoes present on her feet she is no longer experiencing any falls. She has a history of 2 vasovagal syncopal episodes that occurred in November 2018. She requires assistance with most of her ADLs. PPS score 40% - Palliative Care Discussion: The patient continues to have a slow, steady decline due to her chronic disease. She tries to remain upbeat and positive in regards to her daily life. She continues to do vocal exercises for improvement of her hypophonia. She is presently reading book in regards to Parkinson's disease and speech. As she was a very active, independent woman, her inability to be independent has been difficult a difficult struggle for her. She was used to maintain as much independence as possible. She is status post PT evaluation to work with her and her daughter regarding safety, transfers, and passive range of motion exercises. She continues to do exercises on an almost daily basis. Her daug hter Cara, who is an attentive caregiver, continues to be at risk for caregiver burnout. The patient is to have a respite stay at [facility] from June 19 to June 24 while Cara and her daughter go on vacation. The patient has had respite stays in the past at [facility]. She is optimistic that the food has improved at the facility. She was delighted to relay that the bladder trimmer from her taoist came to visit her in the last month and he has promised that he would visit while she stated [facility] .She also continues to worry about her quantity of sleep over the past 2 years. She has not been successful and recent interventions. Impression and Recommendations - Palliative Care Impression: This is a devika 83-year-old who is cognitively intact who presents with advanced Parkinson's disease with advancing symptom burden. She continues to have a slow, functional decline and needs 100% assistance within the home. She continues to struggle with insomnia and has failed the last 2 oral medications that were tried. Palliative care to continue to provide support for symptom management and anticipatory guidance. Recommendations/Counseling Done: 1. Advanced Parkinson's Disease. Chronic. Progressive. Supportive care and fall precautions. S/p appointment with Dr. Estrada (neurology on 06/03/2019) with next f/u in 3 months (09/06/2019). No changes were made to her medication regimen. She is wheelchair-bound and requires 100% assistance with transfers. Continue routine exercises to prevent contractures and maintain musculature. Recommended use of a rolled up washcloth to be placed in the left palm at night to prevent moisture buildup as needed. Continue Sinemet 25\\100 mg 4 times daily as ordered by neurology. Due to muscle stiffness reported in the evenings recommended xdSandy Continue to follow for symptom management due to complications of Parkinson's disease. 2. Insomnia. Chronic. Likely multifactorial given changes in sleep wake cycle, advancing age, and Parkinson's disease. Patient found trazodone too sedating. After a several day trial of Remeron she found that she was too lethargic and physically felt unwell after administration. Recommend DC Remeron. Continue behavioral modifications as previously discussed. Reviewed with patient and daughter desire to avoid hypnotics as these are not long-term fixes as well as due to potential side effects. Would also avoid anticholinergics due to side effect profile as well and reviewed at length with the patient and daughter. At present time continue melatonin nightly. Discussed CBD parameters and recommend to daughter and patient to preform their own research. 3. Caregiver burden. The patient's daughter, Cara, who is the pateint's sole caregiver is taking steps to reduce caregiver burden. The patient will be having a respite stay at [facility] while the daughter is out of town. Palliative care social work to continue to provide support. Their local bladder trimmer is to continue to provide support and visiting. 4. Advanced Care Planning. POLST DNAR with selective treatment. Time Spent: Total time spent 60 minutes with greater than 50% of this spent in counseling and coordination of care with patient and daughter, examination of the patient, review of strategies to reduce insomnia, review of symptom management and anticipatory guidance. Disclaimer: The chart note was formulated using voice recognition technology and unfortunately sound alike errors may occur. F/u in 4-6 weeks or sooner if new/worsening symptoms.
== END 2019-06-10 13:01 | disposition home or self-care (01) ==
LOC: PC 13:00
PROVIDERS: ATTEND Nurse Practitioner Family
DX: Z51.5 Encounter for palliative care (principal); G20 Parkinson's disease; G47.00 Insomnia, unspecified; Z79.899 Other long term (current) drug therapy; Z99.3 Dependence on wheelchair; Z66 Do not resuscitate
CPT/HCPCS: 99350

== ENCOUNTER 2019-07-16 21:01 | Outpatient (CLI) | payer MEDICARE, OTHER | END 2019-07-16 23:59 | disposition EMS.NT | LOC: EMS 21:01 | PROVIDERS: ATTEND Surgery | DX: Z03.89 Encounter for observation for other suspected diseases and conditions ruled out (principal) ==

== ENCOUNTER 2019-08-17 14:10 | Outpatient (CLI) | payer MEDICARE, OTHER ==
--- NOTE | 2019-08-17 20:39 | PROVIDER PROGRESS NOTE ---
HPI/Interval History - HPI/Interval History This is a devika 84-year-old female with advanced Parkinson's disease who is wheelchair-bound, with dysarthria and hypophonia who was seen and evaluated via telemedicine with her daughter Cara present. The patient resides with her daughter, Cara who is her primary caregiver and has been so for the last 2 years. On last evaluation the patient had concerns regarding her insomnia. She had reported that she would "lay in bed staring at the clock". She felt that the trial of trazodone was too sedating and she was not able to tolerate mirtazapine she was too lethargic during the day. Due to muscle stiffness on last evaluation this MECHANICAL OXIDIZER suggested to the daughter Cara to provide massage in the evening to the muscles and this has been effective. Today the patient herself reports that she has had improvement in her overall sleep. She continues on melatonin nightly. She is sleeping better through the night. However, there are times that she is beginning to take more naps during the day when in the past this had been avoided. Her daughter, Cara reports a further decline in the patient's overall function. The patient is requiring assistance with the placement of her dentures as well as adaptive devices with her utensils. Her daughter believes that there may be coming a time sooner rather than later that the patient may require more assistance with meals. Patient and daughter deny coughing during meals. Her daughter continues to do passive range of motion exercises to maintain the patient's musculature and limit contracture. She performs these exercises on a daily basis. Last week the patient's daughter Cara contacted this MECHANICAL OXIDIZER regarding a area of skin breakdown to the patient's left elbow. 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 The site itself had a. Of a rug burn with a scant amount of blood on the sheets. This area WIRE WRAPPING MACHINE OPERATOR does advised Cara to cleanse the site and applied topical antibiotic ointment to the site daily. The area has greatly reduced in size and has scab formation. No evidence of surrounding erythema. The patient denies any discomfort to the site. Patient has a past medical history of Parkinson's disease, osteoporosis, C. difficile, hypertension, hyperlipidemia, depression, anxiety, chronic diarrhea, CKD stage III, GERD, TIA, meningioma of the brain, history of fracture of the left inferior pubic ramus, history of fracture of the humerus femur and scapula. Review of Systems - Constitutional Constitutional: reports: Weakness. denies: Fever, Weight stable - Eyes Eyes: denies: Vision loss - Ears, Nose & Throat Ears, Nose & Throat: reports: Dentures. denies: Dry mouth - Cardiovascular Cardiovascular: denies: Chest pain - Respiratory Respiratory: denies: Cough, Wheezing - Gastrointestinal Gastrointestinal: denies: Abdominal pain, Constipation, Diarrhea (previusly was having chronic losse stools and taking imodium daily but in the last few months this has resolved to formed bowel movements every 2-3 days with control over defecation), Vomiting - Genitourinary Genitourinary: denies: Dysuria - Musculoskeletal Musculoskeletal: reports: Stiffness, Limited range of motion, Muscle weakness (left shoulder s/p botox injection 06/03/2019 with scheduled injection 08/28/2019 with neurologist), Assistive devices (wheelchair bound) - Integumentary Integumentary: reports: Other (scab formation above left elbow) - Neurological Neurological: reports: General weakness, Abnormal gait. denies: Headache - Psychiatric Psychiatric: denies: Depression - Endocrine Endocrine: denies: Diabetes type 2 - Hematologic/Lymphatic Hematologic/Lymphatic: denies: Recurrent infections - All Other Systems All Other Systems: reports: Reviewed and negative Medications/Allergies - Medications Home Medications: Ambulatory Orders Medication Instructions Recorded Confirmed Triamterene/Hydrochlorothiazid 1 each PO DAILY 06/21/17 09/30/18 [Triamterene-Hctz 37.5-25 mg Cp] Acetaminophen [Tylenol] 650 mg PO Q6H PRN #30 tab 06/23/17 09/30/18 lisinopriL [Lisinopril] 10 mg PO DAILY #30 tablet 06/23/17 09/30/18 Gabapentin 300 mg PO QPM 09/26/18 09/30/18 Omeprazole 20 mg PO DAILY 09/26/18 09/30/18 hydrALAZINE [Apresoline] 10 mg PO TID 09/26/18 09/30/18 Carbidopa/Levodopa 1 tab PO QID 09/30/18 09/30/18 [Carbidopa-Levodopa 25-100 Tab] Lidocaine Patch 5% [Lidoderm Patch] 1 ea TOP DAILY PRN 09/30/18 09/30/18 Naproxen Sodium 220 mg PO PRN 09/30/18 Loperamide [Imodium] 2 mg PO DAILY PRN 05/08/19 05/08/19 Extra Strength Tincture Cbd 1 drops PO DAILY PM PRN 06/10/19 Melatonin 3 mg PO DAILY PM 06/10/19 06/10/19 Potassium Chloride 10 meq PO DAILY 06/10/19 06/10/19 - Allergies Allergies/Adverse Reactions: Allergies Allergy/AdvReac Type Severity Reaction Status Date / Time latex Allergy Intermediate Hives Verified 09/26/18 11:31 adhesive tape Allergy Itching Verified 09/26/18 17:25 Physical Exam - Physical Exam General Appearance: Alert, no acute distress, thin, well-groomed sitting out of bed in her recliner. ENT: Hearing intact, no evidence of dehydration NecK: thin, trachea midline Cardiovascular: no evidence of edema Respiratory: No respiratory distress, no audible wheezing, symmetric expansion of the chest Skin: above left elbow small site of resolving abrasion with almost complete scab formation without visible discharge or surrounding erythema Neuro/Psych: in good spirits; oriented x 3; no visible tremor; +dysharthria Palliative Care - POLST Patient has POLST: Yes POLST Status: DNR, Selective Treatment Pain: No pain Tiredness/Fatigue: Mild (1-3) (starting to have naps during the day) Drowsiness/Sedation: Mild (1-3) Nausea: None Anorexia: None Dyspnea: None Depression: None Anxiety: None Feelings of wellbeing/Perceived Quality of Life: Fair Sleep: Sleep improved Constipation: No Performance Status: Patient is wheelchair-bound. She requires 100 assistance with transfers without weightbearing. She has a history of 2 vasovagal syncopal episodes that occurred in November 2018. She is requiring more assistance with her ADLs such as feeding. She is adoptive utensils as well as plate where so that she may self feed. She is continent of stool. PPS score 40% - Palliative Care Discussion: The patient continues to have a slow, steady decline due to her chronic disease. Her daughter and primary caregiver for Cara reports that she has noticed some increasing decline in function in the last few months. The patient is requiring more assistance with tasks that she was previously performing on her own such as placing her own dentures and starting to need more assistance during mealtimes. The patient has always been a very active, independent woman. When exploring her thoughts and feelings regarding requiring increased insistence from Cara she was receptive and grateful for her daughter. Cara continues to perform passive range of motion exercises on a daily basis for the patient to maintain her musculature. She has a resolving abrasion above her left elbow likely due to pressure or scraping on her bedside commode though as it does not appear to be on a pressure point. The patient celebrated her birthday last week and was quite enthused to relay that she had a Zoom birthday democrat and her son sent her roses. When exploring the patient's thoughts and feelings regarding watching the news in relation to the coronavirus pandemic the patient expressed the desire for her daughter, Cara to remain safe. This area WIRE WRAPPING MACHINE OPERATOR reviewed with both the patient and the daughter ways to maintain safety and practice social distancing. On repeat review with the patient for her desires if she were to become exposed to [place] it 19 she does not wish to have a hospitalization if she were to become ill with this virus with a desire to remain at home with her daughter to have a comfortable and dignified . Her [address] was updated indicating these wishes. Impression and Recommendations - Palliative Care Impression: This is a devika 84-year-old woman who is cognitively intact and presents with a dvanced Parkinson's disease with continued functional decline. She is requiring more hands-on assistance by her daughter, Cara who is her primary caregiver. She has a resolving abrasion above her left elbow with no signs or symptoms of infection. Her insomnia complaints have resolved after she failed past 2 oral medications. She has had relief from her insomnia with her daughter providing localized muscle massages prior to bed. Palliative care to continue divide support for symptom management and anticipatory guidance. Recommendations/Counseling Done: 1. Abrasion. Above left elbow, potentially an abrasion obtained during transfers on the bedside commode. Does not appear to be due to pressure as it is above the elbow. Recommended that the daughter wrap the edges of the bedside commode with gauze to prevent any friction or rubbing against the patient's skin. May discontinue application of [id number] topical antibiotic ointment with Band-Aid. Advised at the present time to apply a Vaseline type-based ointment such as Aquaphor to the site twice a day until resolved. Continue to monitor for signs and symptoms of infection and to notify MECHANICAL OXIDIZER if this occurs. 2. Advanced Parkinson's disease. Chronic. Progressive. Supportive care and fall precautions. Patient scheduled for follow-up with Dr. Estrada, neurology on 08/28/2019 with Botox injection. Continue carbidopa/levodopa as ordered. She is wheelchair bound and requires 100.8 assistance with transfers. Continue passive range of motion exercises at home to prevent contractures and maintain musculature. Continue to follow for symptom management. 3. Insomnia. Resolved. Likely multifactorial given changes in sleepwake cycle, advancing age and Parkinson's disease. Since initiation of evening massages to the patient's extremities she has had great improvement in her sleep cycle during the evening. She had failed Remeron and trazodone in the past. Continue melatonin nightly. Continue to monitor for return of symptoms and manage accordingly. 4. POLST DNR with selective treatment. Explored today with the patient and her daughter, Cara regarding coronavirus pandemic. Provided supportive listening regarding patient's thoughts and feelings in relation to coronavirus. Patient expressed that if she were to contract [id number] she wished is to avoid hospitalization and to remain at home with her daughter, Cara and to remain comfortable and have a dignified if possible. Time Spent: 45 minutes [facility] [id number] This is a documentation of a distant site telemedicine encounter. Prior to the interview, the risk and benefits of telemedicine were discussed with the patient and daughter with verbal consent obtained. Telehealth Visit - TeleMedicine Visit Referring Provider: Dr. Manoj Jimenez Visit Type:: TeleHealth Video Call Patient agrees and consents to this telehealth visit type: Yes Time spent:: [id number]; 45 minutes Video type:: Zoom Participants:: Child (daughter, Cara who is primary caregiver) Location of provider:: Office Location of patient:: Home Provider Statement: I spent 100% or the TeleHealth Video Call with the patient with greater than 50% spent counseling the patient and coordination of care.
== END 2019-08-17 14:11 | disposition home or self-care (01) ==
LOC: PC 14:10
PROVIDERS: ATTEND Nurse Practitioner Family
DX: Z51.5 Encounter for palliative care (principal); G20 Parkinson's disease; G47.00 Insomnia, unspecified; S40.812A Abrasion of left upper arm, initial encounter; Z79.899 Other long term (current) drug therapy; Z99.3 Dependence on wheelchair; Z66 Do not resuscitate

== ENCOUNTER 2019-09-14 13:00 | Outpatient (CLI) | payer MEDICARE, OTHER ==
--- NOTE | 2019-09-14 13:26 | PROVIDER PROGRESS NOTE ---
HPI/Interval History - HPI/Interval History This is a devika 84-year-old female with advanced Parkinson's disease who is wheelchair-bound, with dysarthria and hypophonia who was seen and evaluated via telemedicine with her daughter Cara present. Patient resides with her daughter, Cara who is her primary caregiver and has been so for the last 2 years. The patient was recently seen and evaluated by her neurologist, Dr. José Luis Estrada and she had a Botox injection performed not in her left shoulder which is the usual spot but in her right bicep. The Botox injection was placed in her right biceps due to tension in that musculature. 2 to 3 days postinjection the patient was having discomfort. But since that time the muscles have started to relax with improvement of range of motion. The last 6 months the patient has had intermittent pain in her hands when arising with difficulty opening and closing her palms. In the last month there has been an increase in this discomfort. In the last few days the daughter has been applying CBD cream to the palms with a massage before bedtime and this is helped. The patient is now no longer able to stand with the help of her mobility bar after using the bedside commode. The patient and her daughter have adapted and will have additional gia-care on the bed with the patient able to maneuver back and forth in the bed and Cara will assist with cleaning as well as dressing. They have opted to use the bed as the patient did have an episode where she "crumpled down" and had some difficulty getting back up. The patient has a history of insomnia. This is much improved since she has been using a small amount of CBD oil at bedtime. She had 2 failed trials of trazodone and mirtazapine that resulted in too much sedation as well as lethargy during the day. The patient is sleeping through the night typically and does not wish to alter her current regiment. The patient has a past medical history of Parkinson's disease, osteoporosis, C. difficile, hypertension, hyperlipidemia, depression, anxiety, chronic diarrhea, CKD stage III, GERD, TIA, meningioma of the brain, history of fracture of the left inferior pubic ramus, history of fracture of the humerus femur and scapula. Review of Systems - Constitutional Constitutional: reports: Weight stable. denies: Fever - Eyes Eyes: reports: Other (has a history of "light migraines" that will occur for 20 minutes and resolve after resting). denies: Vision loss - Ears, Nose & Throat Ears, Nose & Throat: reports: Other (Dentures). denies: Dry mouth - Cardiovascular Cardiovascular: denies: Chest pain - Respiratory Respiratory: denies: Cough - Gastrointestinal Gastrointestinal: denies: Abdominal pain, Constipation (Having a bowel movement every 3 days. Previously with long standing history of diarrhea. Denies pain with defecation and stools are formed and soft.), Nausea, Vomiting, Good appetite - Musculoskeletal Musculoskeletal: reports: Stiffness, Muscle weakness, Assistive devices, Transfer issues. denies: Joint swelling - Neurological Neurological: reports: General weakness. denies: Headache - Psychiatric Psychiatric: denies: Depression - Endocrine Endocrine: denies: Diabetes type 2 - Hematologic/Lymphatic Hematologic/Lymphatic: denies: Recurrent infections - All Other Systems All Other Systems: reports: Reviewed and negative Medications/Allergies - Medications Home Medications: Ambulatory Orders Medication Instructions Recorded Confirmed Triamterene/Hydrochlorothiazid 1 each PO DAILY 06/21/17 09/30/18 [Triamterene-Hctz 37.5-25 mg Cp] Acetaminophen [Tylenol] 650 mg PO Q6H PRN #30 tab 06/23/17 09/30/18 lisinopriL [Lisinopril] 10 mg PO DAILY #30 tablet 06/23/17 09/30/18 Gabapentin 300 mg PO QPM 09/26/18 09/30/18 Omeprazole 20 mg PO DAILY 09/26/18 09/30/18 hydrALAZINE [Apresoline] 10 mg PO TID 09/26/18 09/30/18 Carbidopa/Levodopa 1 tab PO QID 09/30/18 09/30/18 [Carbidopa-Levodopa 25-100 Tab] Lidocaine Patch 5% [Lidoderm Patch] 1 ea TOP DAILY PRN 09/30/18 09/30/18 Naproxen Sodium 220 mg PO PRN 09/30/18 Loperamide [Imodium] 2 mg PO DAILY PRN 05/08/19 05/08/19 Extra Strength Tincture Cbd 1 drops PO DAILY PM PRN 06/10/19 Melatonin 3 mg PO DAILY PM 06/10/19 06/10/19 Potassium Chloride 10 meq PO DAILY 06/10/19 06/10/19 - Allergies Allergies/Adverse Reactions: Allergies Allergy/AdvReac Type Severity Reaction Status Date / Time latex Allergy Intermediate Hives Verified 09/26/18 11:31 adhesive tape Allergy Itching Verified 09/26/18 17:25 Physical Exam - Physical Exam General Appearance: Alert, no acute distress, thin, well-groomed sitting out of bed in her recliner with daughter at side. ENT: Hearing intact, no evidence of dehydration NecK: thin, trachea midline Respiratory: No respiratory distress, no audible wheezing, symmetric expansion of the chest Skin: visible skin intact Neuro/Psych: in good spirits; oriented x 3; no visible tremor; +dysharthria Palliative Care - POLST Patient has POLST: Yes POLST Status: DNR, Selective Treatment Pain: Pain unchanged (noted to bilateral hands intermittently in the mornings due to muscle contracture and stiffness) Nausea: None Anorexia: None Dyspnea: None Depression: None Sleep: Sleeps well Constipation: No Performance Status: Patient is wheelchair-bound. She requires 100% assistance with transfers without weightbearing. She has a history of 2 vasovagal syncopal episodes that occurred in November 2018. She has adaptive utensils as well as a plate that she may self feed. She is continent of stool. PPS score 40% [employer]SO[employer] caregiver once a week for assistance. - Palliative Care Discussion: The patient continues to have a slow, steady decline due to her chronic disease. She has been doing well within the home during this coronavirus pandemic with Cara and Cara's life partner as her point of contact. She does express disappointment that she is not able to have visitors like she loose to including her granddaughter and certified marine mechanic [employer] appropriately. Her family has been in routine contact with communications to reduce the feelings of any isolation, of which she is appreciative. She is still on her computer daily and will check her email regularly. The patient's present concern is regards to her discomfort in her hands when arising in the morning which is occurring intermittently. She is optimistic as with recent use of CBD cream to her hands before bedtime and this has helped. She is very grateful for the loving care that her daughter, Cara has provided for her. Impression and Recommendations - Palliative Care Impression: This is a devika 84-year-old woman who is cognitively intact and presents with advanced Parkinson's disease with continued functional decline. She is having some pain with contractures to her hands in the mornings, intermittently, that has responded to CBD cream application and massage. Palliative care to continue divide support for symptom management and anticipatory guidance. Recommendations/Counseling Done: 1. Advanced Parkinson's disease. Chronic. Progressive. Supportive care and fall precautions. S/p visit with Dr. Estrada, neurology on 08/28/2019 with Botox injection. Continue carbidopa/levodopa as ordered. Noted reports of pain in bilateral hands intermittently in the mornings due to muscle stiffness that sounds like contractions of the muscle that responds to movemement and CBD cream application at bedtime. Would continue CBD cream application nightly as this has been effective in providing relief. If worsening symptoms, consider use of compression gloves at bedtime such as isotoner. She is wheelchair bound and requires full assistance with transfers. Continue passive range of motion exercises at home to prevent contractures and maintain musculature. Continue to follow for symptom management. 2. History of diarrhea. Resolved. Goal for defecation is every 3 days. No evidence of need for laxative at the present time. Discussed if needed in the future would consider intermittent use of senna 8.6mg nightly. Continue to monitor. 3. Insomnia. Resolved. Likely multifactorial given changes in sleepwake cycle, advancing age and Parkinson's disease. Since initiation of evening massages to the patient's extremities she has had great improvement in her sleep cycle during the evening. She had failed Remeron and trazodone in the past. Continue melatonin nightly. Continue to monitor for return of symptoms and manage accordingly. Time Spent: [address] [facility] [id number] This is a documentation of a distant site telemedicine encounter. Prior to the interview, the risk and benefits of telemedicine were discussed with the patient and daughter with verbal consent obtained. Telehealth Visit - TeleMedicine Visit Referring Provider: Dr. Jimenez Visit Type:: TeleHealth Video Call Patient agrees and consents to this telehealth visit type: Yes Patient agrees to have their insurance billed: Yes Time spent:: [id number] Video type:: Doximetry Participants:: Child (Cara Castillo) Location of provider:: Office Location of patient:: Home Provider Statement: I spent 100% on the TeleHealth Video Call with the patient with greater than 50% spent counseling the patient and coordination of care.
== END 2019-09-14 13:01 | disposition home or self-care (01) ==
LOC: PC 13:00
PROVIDERS: ATTEND Nurse Practitioner Family
DX: Z51.5 Encounter for palliative care (principal); G20 Parkinson's disease; G47.00 Insomnia, unspecified; Z87.19 Personal history of other diseases of the digestive system; Z79.899 Other long term (current) drug therapy; Z99.3 Dependence on wheelchair; Z66 Do not resuscitate

== ENCOUNTER 2019-11-16 12:50 | Outpatient (CLI) | payer MEDICARE, OTHER ==
--- NOTE | 2019-11-16 15:11 | CONSULTATION NOTE ---
Palliative Care Follow Up - Referral Referring Provider: Dr. Manoj Jimenez Time of Visit: 9340-5570 Referral setting: Home Referral Reason: Parkinsons Disease/Weight loss/Medication management - Information Sources Records reviewed: Previous records reviewed History/Review of Systems obtained from: Patient, Family (daughter and caregiver, Cara) Exam limitations: Clinical condition (dysarthia and hypophonia) - History of Present Illness Update Brief HPI Update: This is a devika 84-year-old female with advanced Parkinson's disease who is wheelchair-bound, with dysarthria and hypophonia who is seen and evaluated today within her home with her daughter and primary caregiver, Cara present. The patient continues to have a good appetite. However, she has good days and bad days when she is able to fully complete her meals with adaptive devices to her utensils. At times her daughter may need to assist her with finishing up her meal.Her daughter, Cara has noted weight loss and that she is having to get smaller depends as the previous sizes were falling off the patient. The patient's daughter recently reported increased difficulty with pill swallowing as well as drinking from different straws. The patient has a Corby cup that has been effective for sipping. However, the recent obtainment of a b joaquín sippy cup was not effective as it required the patient to bite on the tip to release the liquid. Typically the symptoms are most pronounced first thing in the morning when her muscles are most stiff. There have been no coughing during meals. A request for outpatient [facility] [employer] was placed 11/09/2019 but at the present time the patient and her daughter have not been contacted for scheduling.With the adjustment of taking the pills and either yogurt or pudding has assisted with medication administration. The patient is having itchiness to both eyes with increased crusting in the mornings. She denies blurred vision or double vision. It is difficult to remove the crusting's from the eyes in the morning. The patient reports that she has a lifelong history of "hayfever." Her daughter has been administering [id number] eyedrops but these have not provided relief. Most concerning to the patient is in regards to her heels burning first thing in the morning. She denies any numbness or tingling. She reports the burning will fade after several hours. Sometimes it will wake her up early in the morning. The patient is presently on gabapentin 300 mg in the evening. Patient is seen out of bed in her reclining chair with compression stockings in place. She is well-groomed and in no apparent distress. She presently denies any discomfort. The patient has a past medical history of Parkinson's disease, osteoporosis, C. difficile, hypertension, hyperlipidemia, depression, anxiety, chronic diarrhea, CKD stage III, GERD, TIA, meningioma of the brain, history of fracture of the left inferior pubic ramus, history of fracture of the humerus, femur and scapula. Social History - Living Situation Living arrangement: At home Living Situation: With family (daughter Cara and her partner Fili) Support System: The patient moved to [facility] approximately 2 years ago for additional caregiving services. Her daughter, Cara is her main caregiver. 1 of the patient's other daughters is presently visiting from [place] and she eventually plans to relocate to [place]. The patient is presently been enjoying the visit. The patient and her daughter continue to enjoy watching sit comes together such as the [place] girls. Medications/Allergies - Medications Home Medications: Ambulatory Orders Medication Instructions Recorded Confirmed Triamterene/Hydrochlorothiazid 1 each PO DAILY 06/21/17 09/30/18 [Triamterene-Hctz 37.5-25 mg Cp] Acetaminophen [Tylenol] 650 mg PO Q6H PRN #30 tab 06/23/17 09/30/18 lisinopriL [Lisinopril] 10 mg PO DAILY #30 tablet 06/23/17 09/30/18 Gabapentin 300 mg PO QPM 09/26/18 09/30/18 Omeprazole 20 mg PO DAILY 09/26/18 09/30/18 hydrALAZINE [Apresoline] 10 mg PO TID 09/26/18 09/30/18 Carbidopa/Levodopa 1 tab PO QID 09/30/18 09/30/18 [Carbidopa-Levodopa 25-100 Tab] Lidocaine Patch 5% [Lidoderm Patch] 1 ea TOP DAILY PRN 09/30/18 09/30/18 Naproxen Sodium 220 mg PO PRN 09/30/18 Loperamide [Imodium] 2 mg PO DAILY PRN 05/08/19 05/08/19 Extra Strength Tincture Cbd 1 drops PO DAILY PM PRN 06/10/19 Melatonin 3 mg PO DAILY PM PRN 06/10/19 06/10/19 Potassium Chloride 20 meq PO BID 06/10/19 06/10/19 Gabapentin 100 mg PO QPM MDD take with 300mg 11/16/19 11/16/19 Ketotifen Fumarate [Zaditor] 1 drops EACHEYE BID PRN 11/16/19 11/16/19 - Allergies Allergies/Adverse Reactions: Allergies Allergy/AdvReac Type Severity Reaction Status Date / Time latex Allergy Intermediate Hives Verified 09/26/18 11:31 adhesive tape Allergy Itching Verified 09/26/18 17:25 Review of Systems - Constitutional Constitutional: reports: Weight loss (MAC 23cm right upper arm today; see HPI for additional details). denies: Fever, Poor appetite - Eyes Eyes: reports: Irritation. denies: Blurred vision, Vision loss - Ears, Nose & Throat Ears, Nose & Throat: reports: Hearing loss, Hearing aids - Cardiovascular Cardiovascular: denies: Palpitations, Chest pain - Respiratory Respiratory: denies: Cough, Wheezing - Gastrointestinal Gastrointestinal: reports: Good appetite. denies: Abdominal pain, Constipation, Diarrhea, Nausea, Vomiting - Genitourinary Genitourinary: reports: Incontinence. denies: Dysuria - Musculoskeletal Musculoskeletal: reports: Stiffness, Limited range of motion, Assistive devices, Transfer issues. denies: Joint pain - Integumentary Integumentary: denies: Rash - Neurological Neurological: reports: General weakness, Other (see HPI for additional details) - Psychiatric Psychiatric: denies: Depression - All Other Systems All Other Systems: reports: Reviewed and negative Physical Exam - Vital Signs Temperature: 36.3 C Pulse Rate: 78 O2 Saturation: 97 (on RA at rest) Blood Pressure: 111/63 (right wrist cuff sitting) - Physical Exam General Appearance: positive: No acute distress, Alert, Other (thin, well groomed, OOB in recliner) Eyes Bilateral: positive: PERRL, Conjunctivae nml, Other (mild crusting noted to b/l lower eyelids with patient reports of pruritus) ENT: positive: Hearing loss, Hearing aids, Other (+MMM) Neck: positive: Trachea midline, Other (thin) Cardiovascular: positive: Regular rate & rhythm, No murmur Respiratory: positive: No respiratory distress, Breath sounds nml, Other (slightly diminished LLL) Abdomen: positive: Non-tender, Soft, Nml bowel sounds. negative: Distended Skin: positive: Other (b/l heels intact without erythema). negative: Pressure wound Extremities: positive: No pedal edema, Other (Limited range of motion left shoulder; +contracture of left hand; ridigity to LLE;) Neurologic/Psychiatric: positive: Oriented x3, Weakness, Flat affect, Other (+Bradykinesia; +dysarthria and hypophonia) Palliative Care - POLST Patient has POLST: Yes POLST Status: DNR, Selective Treatment Pain: Comment (see HPI for full details) Nausea: None Anorexia: None Dyspnea: None Depression: None Anxiety: None Sleep: Variable sleep pattern Constipation: No, Managed Performance Status: She is wheelchair dependent. Requires 100% assistance for transfers. She is unable to weight-bear. Able to self feed with adaptive devices to her utensils. Is incontinent of bowel and bladder. No recent falls. - Palliative Care Discussion: The patient is quite pleased to have her other daughter visiting from out of town presently. Her daughter and caregiver, Cara has been overseeing her care for over 2 years. Cara reports that she reached out to her other siblings and stated that if they "felt in their hearts they needed to visit the patient then they should come out." There is a family barbecue scheduled for mid December that the patient is looking forward to and is hoping that he will not be canceled. She continues to enjoy her sit comes with her daughter. During the visit with her other daughter, Cara had noticed that the patient has been laughing more and this has made Cara aware that she and the patient have more of a "nursing patient relationship." Cara wishes to change this and have more laughter in the home moving forward. The patient herself is most concerned regarding the burning sensation to her bilateral heels. She was looking to have a reduction in her pill burden but recognizes the need to move forward with treatment of her neuropathic type pain requires an increase in her gabapentin dosage and she is in agreement for trial. She has had improvement with medication administration with her medication delivered in yogurt or pudding. She has an SL P request that is pending to be scheduled for reevaluation. Impression and Recommendations - Palliative Care Impression: This is a vibrant 84-year-old female who presents with advanced Parkinson's disease with continued functional decline with noted weight loss. MAC obtained today at 23 cm to her right upper extremity. She has had improvement in her Pill swallowing with adjustments and her daughter contacted the outpatient pharmacist for additional direction. The patient is having increased in neuropathic pain to her bilateral heels. Palliative care to continue to provide support for symptom management and anticipatory guidance. Recommendations/Counseling Done: 1. 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 Increase gabapentin dose to 400 mg nightly. To administer gabapentin 300 mg with 100 mg capsule for total nightly dose of 400 mg. Patient is in agreement for a trial. Adjust gabapentin regimen as needed. 2. Hypertension. Blood pressure 111/63. No cardiac awareness. Given the patient's weight loss consider a reduction in her antihypertensive regiment as she likely requires less medication on board to reduce any side effects such as orthostatic hypotension. At the present time continue hydralazine, triamterneHCTZ, lisinopril and potassium supplementation due to HCTZ. Obtain CMP at next visit for evaluation of renal function and potassium level. Consider dose reduction of potassium supplementation based on lab results. 3. Allergic conjunctivitis. Patient has a history of seasonal allergies. Discontinue [id number] ophthalmic drops. Initiate Zaditor ophthalmic drops 1 drop to each eyes twice daily by 8 to 12 hours as needed for itching. Recommend using a warm compress to the bilateral eyelids in the morning to allow better removal of debris crusting to the eyelids. Follow-up as needed. 4. Parkinson's disease. Advanced. Chronic. Progressive. Supportive care and fall precautions. Recent difficulty with medication administration due to swallowing. [employer] outpatient evaluation pending with referral placed and daughter to follow-up regarding appointments. Continue carbidopa/levodopa as ordered. Patient is wheelchair-bound and requires full assistance with transfers. Continue to massage musculature. Continue to be followed by neurologist, Dr. Estrada. Neck scheduled to see Dr. Estrada in late November 2019. Time Spent: Total time spent 65 minutes with greater than 50% of this spent in counseling and coordination of care with patient and daughter, Cara; review of new medication with purpose, dose and side effects reviewed and understanding verbalized; review of pain and symptom management and anticipatory guidance. Disclaimer: The chart note was formulated using voice recognition technology and unfortunately sound alike errors may occur.
== END 2019-11-16 12:51 | disposition home or self-care (01) ==
LOC: PC 12:50
PROVIDERS: ATTEND Nurse Practitioner Family
DX: Z51.5 Encounter for palliative care (principal); R63.4 Abnormal weight loss; G62.9 Polyneuropathy, unspecified; I10 Essential (primary) hypertension; H10.13 Acute atopic conjunctivitis, bilateral; G20 Parkinson's disease; Z79.899 Other long term (current) drug therapy; Z99.3 Dependence on wheelchair; Z66 Do not resuscitate
CPT/HCPCS: 99350

== ENCOUNTER 2019-12-21 13:00 | Outpatient (CLI) | payer MEDICARE, OTHER ==
--- NOTE | 2019-12-21 16:11 | CONSULTATION NOTE ---
Palliative Care Follow Up - Referral Referring Provider: Dr. Manoj Jimenez Time of Visit: [id number] Referral setting: Home Referral Reason: Parkinson's Disease/Neuropathy - Information Sources Records reviewed: Previous records reviewed History/Review of Systems obtained from: Patient, Family (daughter, Cara) Exam limitations: Clinical condition (dysarthia and hypophonia) - History of Present Illness Update Brief HPI Update: This is a devika 84-year-old female with advanced Parkinson's disease who is wheelchair-bound, with dysarthria and hypophonia who was seen and evaluated today within her home with her daughter and primary caregiver, Cara present. The patient continues to report burning sensation in her heels. Her gabapentin dosage has been adjusted in recent weeks. She is presently on gabapentin 200 mg in the morning and 400 mg in the evening. This has improved some of her symptoms with her burning pain but has not completely alleviated the discomfort. She is not crying out in distress per her daughter's report. At the present time she is typically experiencing discomfort whether in the evening or first thing in the broadcast operations director approximately 3 to 4 days out of the week. Initially she had some noted drowsiness during the day with the dose adjustment of the gabapentin which has subsequently resolved. Her neurologist have basically made some dose adjustments to her carbidopa/D but dopa and the daughter states that there has been improvement in the patient's facial expressions since the dose adjustment. She continues to have difficulty with swallowing medication. She has a pending WELDER/INSTALLER evaluation at [facility] for Saturday. Her medication has been administered in pudding or applesauce for swallowing purposes. The patient is seen out of bed in her reclining chair with socks in place. She is well groomed and in no distress. She presently denies any discomfort. Patient has a past medical history of Parkinson's disease, osteoporosis, C. difficile, hypertension, hyperlipidemia, depression, anxiety, chronic diarrhea, CKD stage III, GERD, TIA, meningioma of brain, history of fracture of the left inferior pubis ramus, history of fracture of the humerus, femur and scapula. Social History - Living Situation Living arrangement: At home Living Situation: With family (Daughter Cara and her partner, Fili) Support System: Patient moved to [facility] approximately 2 years ago for additional caregiving services. Her daughter, Cara is her main caregiver. The patient continues to enjoy her routine that she has with her daughter, Cara. Cara recently notified her siblings with a request if they wish to visit the patient that they should do so this summer given the coronavirus and uncertainty of fall travel in 2019. The patient just had a visit with her son and tugutmmu-os-ecm as well as her 2 granddaughters over this past weekend which was quite enjoyable for the patient and provided some caregiving relief for the patient's daughter, Cara. The patient was previously followed by palliative care social work and presently both she and her daughter, Cara declining reinitiation of the services and will make this provider aware if needs arise in the future to readdress. Medications/Allergies - Medications Home Medications: Ambulatory Orders Medication Instructions Recorded Confirmed Triamterene/Hydrochlorothiazid 1 each PO DAILY 06/21/17 09/30/18 [Triamterene-Hctz 37.5-25 mg Cp] Acetaminophen [Tylenol] 650 mg PO Q6H PRN #30 tab 06/23/17 09/30/18 lisinopriL [Lisinopril] 10 mg PO DAILY #30 tablet 06/23/17 09/30/18 Gabapentin 300 mg PO QPM 09/26/18 09/30/18 Omeprazole 20 mg PO DAILY 09/26/18 09/30/18 hydrALAZINE [Apresoline] 10 mg PO BID 09/26/18 09/30/18 Carbidopa/Levodopa 0.5 tab PO QID 09/30/18 09/30/18 [Carbidopa-Levodopa 25-100 Tab] Lidocaine Patch 5% [Lidoderm Patch] 1 ea TOP DAILY PRN 09/30/18 09/30/18 Naproxen Sodium 220 mg PO PRN 09/30/18 Loperamide [Imodium] 2 mg PO DAILY PRN 05/08/19 05/08/19 Extra Strength Tincture Cbd 1 drops PO DAILY PM PRN 06/10/19 Potassium Chloride 20 meq PO BID 06/10/19 06/10/19 Gabapentin 200 mg PO QPM MDD take with 300mg 11/16/19 11/16/19 Ketotifen Fumarate [Zaditor] 1 drops EACHEYE BID PRN 11/16/19 11/16/19 Carbidopa/Levodopa 1 tab PO QID 12/07/19 12/07/19 [Carbidopa-Levodopa 25-250 Tab] Gabapentin 200 mg PO QDBREAKFAST 12/07/19 12/07/19 - Allergies Allergies/Adverse Reactions: Allergies Allergy/AdvReac Type Severity Reaction Status Date / Time latex Allergy Intermediate Hives Verified 09/26/18 11:31 adhesive tape Allergy Itching Verified 09/26/18 17:25 Review of Systems - Constitutional Constitutional: reports: Fatigue, Weight stable (recent weight loss that has stabilized, MAC 22cm to RUE today, previous 23cm on 11/16/2019). denies: Fever - Eyes Eyes: denies: Irritation, Blurred vision - Ears, Nose & Throat Ears, Nose & Throat: reports: Hearing loss, Hearing aids - Cardiovascular Cardiovascular: denies: Chest pain - Respiratory Respiratory: denies: Cough - Gastrointestinal Gastrointestinal: reports: Good appetite. denies: Constipation (bowel movement every 2-3 days), Diarrhea, Vomiting - Genitourinary Genitourinary: reports: Incontinence. denies: Dysuria - Musculoskeletal Musculoskeletal: reports: Stiffness, Limited range of motion, Assistive devices, Transfer issues. denies: Joint pain - Neurological Neurological: reports: General weakness, Other (burning sensation to heels and soles of feet) - Psychiatric Psychiatric: denies: Depression - Hematologic/Lymphatic Hematologic/Lymphatic: reports: Bruising (intermittent) - All Other Systems All Other Systems: reports: Reviewed and negative Physical Exam - Vital Signs Temperature: 36.3 C Pulse Rate: 67 O2 Saturation: 98 (on RA at rest) Blood Pressure: 134/74 (right wrist cuff) - Physical Exam General Appearance: positive: No acute distress, Alert, Other (thin, well groomed, OOB in recliner) Eyes Bilateral: positive: Normal inspection ENT: positive: No signs of dehydration Neck: positive: Trachea midline, Other (thin) Cardiovascular: positive: Regular rate & rhythm, No murmur Respiratory: positive: No respiratory distress, Breath sounds nml Abdomen: positive: Non-tender, Soft, Nml bowel sounds. negative: Distended Skin: positive: Other (b/l heels intact without erythema or boggy). negative: Pressure wound Extremities: positive: No pedal edema, Other (Limited range of motion left shoulder; +contracture of left hand; ridigity to LLE; +stiffness to RUE) Neurologic/Psychiatric: positive: Oriented x3, Weakness, Flat affect, Other (+Bradykinesia; +dysarthria and hypophonia) Palliative Care - POLST Patient has POLST: Yes POLST Status: DNR, Selective Treatment Pain: Comment (see HPI for full details) Anorexia: None Depression: None Sleep: Variable sleep pattern Constipation: No, Managed Performance Status: Patient is wheelchair dependent. Requires 100% assistance for transfers. She is unable to weight-bear. Able to self feed with adaptive devices to her utensils. Is incontinent of bowel and bladder. No recent falls. - Palliative Care Discussion: The patient continues to report concerns regarding the burning sensation that she has to her bilateral feet to her heels and soles. She has had some improvement with the dosage increase of her gabapentin and has tolerated the side effect of drowsiness which has worn off. She wishes to have greater improvement of her underlying neuropathy to not contribute to any great form of discomfort. The patient recently enjoyed a devika visit with her son and [id number] as well as 2 granddaughters. She was able to get out of the home with her family present to enjoy some trips in the car. She reflected off upon that finally today during this visit. The patient's daughter, Cara who is her primary and sole caregiver reports that the visit with her brother and [id number] was quite beneficial and provided Cara with some relief of her caregiving duties. It also was beneficial for Cara herself to have verbal appreciation from her family for the care that she has been providing for their mother. The patient's son has not seen her in some time and reported that the patient has "very much changed" in recent months. Impression and Recommendations - Palliative Care Impression: This is a devika 84-year-old woman who presents with advanced Parkinson's disease with continued functional decline with stable weight loss. MAC obtained today at 22 cm to her right upper extremity with slight decrease from last evaluation in November 2019 at 23 cm. She continues to have neuropathic pain to her bilateral heels which has had some response to dose increase of her gabapentin. Palliative care to continue provide support for symptom management and anticipatory guidance. Recommendations/Counseling Done: 1. Hypertension. Blood pressure today 134/74. No cardiac awareness. Consider the patient's weight loss recommend that we discontinue midday hydralazine do heather. Continue hydralazine 10 mg twice daily, TriametrneHCTZ, lisinopril and potassium supplementation due to HCTZ. Obtain CMP today to evaluate renal function and potassium level. Consider dose reduction of potassium supplementation based on lab results and follow-up with daughter regarding lisinopril dosage based on renal function. 2. Peripheral neuropathy to bilateral heels. Continue gabapentin 200 mg in the a.m. Increase gabapentin dose in the evening to 500 mg (take 2 capsules of 100mg gabapentin with 300mg of gabapentin). Side effects reviewed with understanding verbalized. Adjust regimen of gabapentin based on clinical response and renal function. 3.Parkinson's Disease. Advanced. Chronic. Progressive. Supportive care and fall precautions. outpatient WELDER/INSTALLER evaluation pending due to recent difficulty with medication administration due to swallowing and will follow with results. Continue carbidopa/levodopa as ordered. Followed by neurologist Dr. Estrada, s/p visit November 2019. Wheelchair bound and requires full assistance with transfers. 4. Caregiver burden. The patient's daughter, Cara is the patient's sole caregiver, who reports that she is doing well at the present time. Both patient and daughter decline palliative care social work support at the present time but are aware that the support is available if needed in the future. 5. Advanced Care planning. POLST DNAR with selective treatment. Time Spent: F/u in 3-6 weeks or sooner if new/worsening symptoms. Total time spent 60 minutes with greater than 50% of this spent in counseling and coordination of care with patient and daughter, Cara; neuropathy symptoms and medication; review of symptom management and anticipatory guidance. Disclaimer: The chart note was formulated using voice recognition technology and unfortunately sound alike errors may occur.
== END 2019-12-21 13:01 | disposition home or self-care (01) ==
LOC: PC 13:00
PROVIDERS: ATTEND Nurse Practitioner Family
DX: Z51.5 Encounter for palliative care (principal); G62.9 Polyneuropathy, unspecified; R13.10 Dysphagia, unspecified; I10 Essential (primary) hypertension; G20 Parkinson's disease; R53.83 Other fatigue; Z79.899 Other long term (current) drug therapy; Z99.3 Dependence on wheelchair; Z66 Do not resuscitate
CPT/HCPCS: 99350

== ENCOUNTER 2020-01-11 13:00 | Outpatient (CLI) | payer MEDICARE, OTHER ==
--- NOTE | 2020-01-11 14:43 | CONSULTATION NOTE ---
Palliative Care Follow Up - Referral Referring Provider: Dr. Manoj Jimenez Time of Visit: [id number] Referral setting: Home Referral Reason: Parkinson's Disease/Neuropathy/Debility - Information Sources Records reviewed: Previous records reviewed History/Review of Systems obtained from: Patient, Family (daughter, Cara) Exam limitations: Clinical condition (dysarthia and hypophonia) - History of Present Illness Update Brief HPI Update: This is a devika 84-year-old female with advanced Parkinson's disease who is wheelchair-bound with dysarthria and hypophonia, and peripheral neuropathy. The patient's daughter has perceived that the patient has had a reduction in pain in her heels since recent dose adjustment of her gabapentin to 200 mg in the morning and 500 mg in the evening. Now however, the patient is reporting burning pain in her hands. When this occurs she is unable to perform any tasks such as moving the blanket that is on top of her. Sometimes she will cry out in distress. With each dose adjustment of the gabapentin the patient will note some drowsiness during the day which eventually subsides and she eventually has more energy resulting in her ability to feed herself. The patient is having her medications opened or crushed at the present time. She is status post COMMERCIAL ATTORNEY evaluation last week with Sheila Hyman. No report from COMMERCIAL ATTORNEY at the present time but the daughter reports that there is no difficulty with swallowing but her dentures are loose likely the contributing factor. The patient is scheduled to see a dentist for consultation on in regards to having her dentures fit more appropriately. Since Saturday the patient has reporting perianal discomfort. It comes and goes. It was initially developed after the patient received a bath and possibly the way that she was leaning and laying on the blanket scrunched up caused some local irritation. The patient denies any pain with defecation. Denies a history of hemorrhoids. No burning sensation to the rectum. No blood when wiping or with defecation. On 12/31/2019 the patient had an unresponsive episode after being on the bedside commode defecating. This has happened previously but she had not been unresponsive for as long as this last episode which lasted approximately 20 minutes before she returned to baseline. No further episodes. The patient is seen resting on her left side in bed no visible distress. Well groomed and frail. Patient has a past medical history of Parkinson's disease, osteoporosis, C. difficile, hypertension, hyperlipidemia, depression, anxiety, chronic diarrhea, CKD stage III, GERD, TIA, meningioma of the brain, history of fracture of the left inferior pubis ramus, history of fracture of the humerus, femur and scapula. Social History - Living Situation Living arrangement: At home Living Situation: With family (daughter Cara and her partner, Fili) Support System: Patient moved to [facility] approximately 2 years ago for additional caregiving services. Her daughter, Cara is her main caregiver. The patient continues to enjoy her routine that she has with her daughter Cara. Medications/Allergies - Medications Home Medications: Ambulatory Orders Medication Instructions Recorded Confirmed Triamterene/Hydrochlorothiazid 1 each PO DAILY 06/21/17 09/30/18 [Triamterene-Hctz 37.5-25 mg Cp] Acetaminophen [Tylenol] 650 mg PO Q6H PRN #30 tab 06/23/17 09/30/18 lisinopriL [Lisinopril] 10 mg PO DAILY #30 tablet 06/23/17 09/30/18 Gabapentin 300 mg PO QPM 09/26/18 09/30/18 Omeprazole 20 mg PO DAILY 09/26/18 09/30/18 hydrALAZINE [Apresoline] 5 mg PO BID 09/26/18 09/30/18 Carbidopa/Levodopa 0.5 tab PO QID 09/30/18 09/30/18 [Carbidopa-Levodopa 25-100 Tab] Lidocaine Patch 5% [Lidoderm Patch] 1 ea TOP DAILY PRN 09/30/18 09/30/18 Naproxen Sodium 220 mg PO PRN 09/30/18 Loperamide [Imodium] 2 mg PO DAILY PRN 05/08/19 05/08/19 Extra Strength Tincture Cbd 1 drops PO DAILY PM PRN 06/10/19 Potassium Chloride 20 meq PO BID 06/10/19 06/10/19 Gabapentin 200 mg PO QPM MDD take with 300mg 11/16/19 11/16/19 Ketotifen Fumarate [Zaditor] 1 drops EACHEYE BID PRN 11/16/19 11/16/19 Carbidopa/Levodopa 1 tab PO QID 12/07/19 12/07/19 [Carbidopa-Levodopa 25-250 Tab] Gabapentin 200 mg PO QDBREAKFAST 12/07/19 12/07/19 Gabapentin 200 mg PO .AFTERNOON 01/11/20 01/11/20 - Allergies Allergies/Adverse Reactions: Allergies Allergy/AdvReac Type Severity Reaction Status Date / Time latex Allergy Intermediate Hives Verified 09/26/18 11:31 adhesive tape Allergy Itching Verified 09/26/18 17:25 Review of Systems - Constitutional Constitutional: reports: Fatigue, Weight loss. denies: Fever - Ears, Nose & Throat Ears, Nose & Throat: reports: Hearing loss, Hearing aids, Dentures - Cardiovascular Cardiovascular: denies: Chest pain, Edema - Respiratory Respiratory: denies: Cough - Gastrointestinal Gastrointestinal: reports: Constipation (bowel movement every 3 days; see HPI for additional details). denies: Abdominal pain, Vomiting - Genitourinary Genitourinary: reports: Incontinence. denies: Dysuria - Musculoskeletal Musculoskeletal: reports: Assistive devices - Neurological Neurological: reports: General weakness, Other (burning sensation to b/l hands) - Psychiatric Psychiatric: denies: Depression - Hematologic/Lymphatic Hematologic/Lymphatic: denies: Recurrent infections - All Other Systems All Other Systems: reports: Reviewed and negative Physical Exam - Vital Signs Temperature: 36.4 C Pulse Rate: 58 O2 Saturation: 94 (on RA at rest) Blood Pressure: 125/71 (lying down at rest) - Physical Exam General Appearance: positive: No acute distress, Alert, Other (resting on left side) Eyes Bilateral: positive: Normal inspection ENT: positive: No signs of dehydration, Other (b/l temporal wasting) Neck: positive: Trachea midline Cardiovascular: positive: No murmur, Bradycardia Respiratory: positive: No respiratory distress, Breath sounds nml Abdomen: positive: Non-tender, Soft, Nml bowel sounds, Other (no visible external hemorroids and no noted internal hemorroids appreciated on MELANIA with good spincter tone) Skin: positive: Pallor. negative: Pressure wound Extremities: positive: No pedal edema, Other (Limited ROM left shoulder; cont racture of left hand with ridigity to LLE) Neurologic/Psychiatric: positive: Oriented x3, Weakness, Flat affect, Other (+Bradykinesia, +Dysarthria. More pronounced hyophonia.) Palliative Care - POLST Patient has POLST: Yes POLST Status: DNR, Selective Treatment Pain: Pain worsening (burning pain to b/l hands, see HPI for additional details) Drowsiness/Sedation: Mild (1-3) Depression: None Constipation: No, Managed Performance Status: Patient is wheelchair dependent. Requires 100% assistance for transfers. She is unable to weight-bear. Able to self feed with adaptive devices to her utensils. Is incontinent of bowel and bladder. No recent falls. - Palliative Care Discussion: The patient today reports concerns regarding the burning sensation that she is having to her bilateral hands that restrict her ability to function when the pain is most acute. She does continue to report to having burning pain to her heels but this has overall improved with a focus more on her hands. She recently had a dose adjustment of her gabapentin and the side effects of the drowsiness had subsequently tapered off. She wishes to continue to have greater improvement of her underlying neuropathy so she can maintain her ability to assist herself as much as possible. The patient is weighing whether to proceed with adjustment of her dentures. She is afraid in regards to the cost. Gently reminded the patient that having an adjustment of her dentures would lead to improve quality of life and she has previously expressed this to be a wish of hers. Patient therefore, in agreement to proceed with dental consultation in regards to fitting of her dentures as this was noted to be loose status post COMMERCIAL ATTORNEY evaluation. Impression and Recommendations - Palliative Care Impression: This is a devika 84-year-old female who presents with advanced Parkinson's disease with continued functional decline. She continues to present with peripheral neuropathy now greatest in her hands versus her feet. Would benefit from additional dose adjustment of gabapentin to manage her underlying neuropathic pain. Palliative care to continue [facility] guide support for symptom management and anticipatory guidance. Recommendations/Counseling Done: 1. Peripheral neuropathy to bilateral hands and bilateral feet. Continue gabapentin 200 mg in the morning. Continue gabapentin 500 mg in the afternoon. Initiate gabapentin 100 mg capsules take 100 mg in the afternoon x7 days then increase to 200 mg in the afternoon. After a gradual dose increase of gabapentin total daily dose of gabapentin will be 900 mg daily. Reviewed side effects with patient and daughter with understanding verbalized. In the future consider use of liquid gabapentin if needed due to patient's difficulty with pill administration or consider switching from gabapentin to Lyrica for better coverage and reduction of daytime sedation. Continue to adjust regiment of gabapentin based on clinical response and renal function. 2. History of Vasovagal episode. Continue to encourage the patient not to strain during defecation. Ensure adequate hydration. Supportive measures in the future based on patient's desire for supportive measures. 3. Hypertension. Blood pressure today 125/71. No cardiac awareness. Patient reports to dizziness with position changes and likely has some underlying autonomic dysfunction due to her Parkinson's disease. Given her underlying Parkinson's disease and history of weight loss will reduce hydralazine to 5 mg twice daily. Monitor patient's blood pressure daily x2 weeks and patient's daughter, Cara to contact [facility] to review blood pressure log to see if hydralazine may just be discontinued. Continue lisinopril, potassium supplementation, and triametrne-HCTZ as ordered. CTM. 4. Parkinson's disease. Advanced. Chronic. Progressive. Supportive care and fall precautions. Status post outpatient COMMERCIAL ATTORNEY evaluation due to recent difficulty with medication administration demonstrated patient's dentures are too loose given her history of weight loss. Noted increase in hypophonia today. Patient to have dentures reevaluated for adjustment. Continue carbidopa/levodopa as ordered. Wheelchair-bound and requires full assistance with transfers. Followed by neurologist, Dr. Estrada. 5. Perianal discomfort. No visible hemorrhoids or abnormality noted on physical examination. Unclear if constipation is underlying issue, however the patient denies pain with defecation. Possible referred pain given the patient's thin frame and structure. Recommend obtaining cushion, such as Roho, for use while the patient is out of bed in her recliner during the day for more even weight distribution. If no improvement with cushion, then consider stool softener for defecation as underlying cause. CTM. 6. Advanced care planning. POLST as DN AR with selective treatment. Patient continues to have a general decline due to her multiple comorbidities. Consider in future visits to explore goals of care and really assess patient's desire regarding interventions based on her present medical status. Time Spent: F/u by phone call for blood pressure log review in 2 weeks and f/u in 4-6 weeks for in-person re-evaluation or prn if needs arise. Total time spent 42 minutes with greater than 50% of this spent in counseling and coordination of care with patient and daughterCara; supportive listening; physical evaluation; review of pain and symptom management and anticipatory guidance. Disclaimer: The chart note was formulated using voice recognition technology and unfortunately sound alike errors may occur.
== END 2020-01-11 13:01 | disposition home or self-care (01) ==
LOC: PC 13:00
PROVIDERS: ATTEND Nurse Practitioner Family
DX: Z51.5 Encounter for palliative care (principal); G62.9 Polyneuropathy, unspecified; G20 Parkinson's disease; I10 Essential (primary) hypertension; R63.4 Abnormal weight loss; K62.89 Other specified diseases of anus and rectum; R53.83 Other fatigue; K59.00 Constipation, unspecified; Z79.899 Other long term (current) drug therapy; Z99.3 Dependence on wheelchair; Z66 Do not resuscitate
CPT/HCPCS: 99349

== ENCOUNTER 2020-02-08 13:00 | Outpatient (CLI) | payer MEDICARE, OTHER ==
--- NOTE | 2020-02-08 14:35 | CONSULTATION NOTE ---
Palliative Care Follow Up - Referral Referring Provider: Dr. Manoj Jimenez Time of Visit: [id number] Referral setting: Home Referral Reason: Neuropathy/Debility/Parkinson's Disease - Information Sources Records reviewed: Previous records reviewed History/Review of Systems obtained from: Patient, Family (daughter, Cara present) Exam limitations: Clinical condition (dysarthria and hypophonia) - History of Present Illness Update Brief HPI Update: This is a devika 84-year-old female with advanced Parkinson's disease who is wheelchair-bound with dysarthria and hypophonia, peripheral neuropathy, and hypertension. The patient has had neuropathy reported pain with burning to her heels that have improved with adjustment of her gabapentin dosage to 200 mg in the morning, 200 mg in the afternoon, and 500 mg in the evening. She continues to report having discomfort to her bilateral hands that was causing her to cry out. She was initiated on 01/26 with Voltaren gel to her hands which has provided great relief. She is typically using this approximately 1-2 times per day. The patient only had loose dentures and had her dentures realigned with the dentist. This is helped with swallowing. However, due to numbness in her fingers she is no longer able to feed herself and is requiring assistance from her daughter. The patient is not drinking as much as she previously was per both her and her daughter's report. She does periodically seem to "space out at meals." She enjoys her sweets particularly vanilla ice cream with butterscotch syrup in the evenings. She has had noted weight loss but none further of late from her baseline. The patient is no longer having perianal discomfort. Her daughter obtained a [employer] mosaic cushion to use while up in her chair and this is provided support and comfort. The patient continues to have good days and bad days. Her daughter notes that she is less talkative. Patient is seen sitting up in her recliner watching TV. Well-groomed no evidence of distress. Patient has a past medical history of Parkinson's disease, osteoporosis, C. difficile, hypertension, hyperlipidemia, depression, anxiety, chronic diarrhea, CKD stage III, GERD, TIA, meningioma of the brain, history of fracture of the left inferior pubis ramus, history of fracture of the humerus, femur and scapula. Social History - Living Situation Living arrangement: At home Living Situation: With family (Daughter Cara and her partner, Fili) Support System: Patient moved to [facility] for additional caregiving services. Her daughter, Cara is her main caregiver. The patient continues to enjoy her routine that she has with her daughter Cara. She recently has had an creased visitors from her family including her sister who has mild cognitive impairment. The patient and her daughter are presently watching [place] on Netflix. Medications/Allergies - Medications Home Medications: Ambulatory Orders Medication Instructions Recorded Confirmed Triamterene/Hydrochlorothiazid 1 each PO DAILY 06/21/17 09/30/18 [Triamterene-Hctz 37.5-25 mg Cp] Acetaminophen [Tylenol] 650 mg PO Q6H PRN #30 tab 06/23/17 09/30/18 lisinopriL [Lisinopril] 10 mg PO DAILY #30 tablet 06/23/17 09/30/18 Gabapentin 300 mg PO QPM 09/26/18 09/30/18 Omeprazole 20 mg PO DAILY 09/26/18 09/30/18 hydrALAZINE [Apresoline] 5 mg PO QPM 09/26/18 09/30/18 Carbidopa/Levodopa 0.5 tab PO QID 09/30/18 09/30/18 [Carbidopa-Levodopa 25-100 Tab] Lidocaine Patch 5% [Lidoderm Patch] 1 ea TOP DAILY PRN 09/30/18 09/30/18 Naproxen Sodium 220 mg PO PRN 09/30/18 Loperamide [Imodium] 2 mg PO DAILY PRN 05/08/19 05/08/19 Extra Strength Tincture Cbd 1 drops PO DAILY PM PRN 06/10/19 Potassium Chloride 20 meq PO BID 06/10/19 06/10/19 Gabapentin 200 mg PO QPM MDD take with 300mg 11/16/19 11/16/19 Ketotifen Fumarate [Zaditor] 1 drops EACHEYE BID PRN 11/16/19 11/16/19 Carbidopa/Levodopa 1 tab PO QID 12/07/19 12/07/19 [Carbidopa-Levodopa 25-250 Tab] Gabapentin 200 mg PO QDBREAKFAST 12/07/19 12/07/19 Gabapentin 200 mg PO .AFTERNOON 01/11/20 01/11/20 Diclofenac Sodium [Voltaren] 2 g TP TID PRN MDD hands 01/27/20 01/27/20 - Allergies Allergies/Adverse Reactions: Allergies Allergy/AdvReac Type Severity Reaction Status Date / Time latex Allergy Intermediate Hives Verified 09/26/18 11:31 adhesive tape Allergy Itching Verified 09/26/18 17:25 Review of Systems - Constitutional Constitutional: reports: Fatigue, Weight loss (appears to have stablized at this time) - Eyes Eyes: denies: Irritation, Other (discharge) - Ears, Nose & Throat Ears, Nose & Throat: reports: Hearing loss, Hearing aids, Dentures - Cardiovascular Cardiovascular: denies: Chest pain, Edema - Respiratory Respiratory: denies: Cough - Gastrointestinal Gastrointestinal: reports: Constipation (controlled every 3 days). denies: Abdominal pain, Vomiting, Other (decreased appetite) - Genitourinary Genitourinary: reports: Incontinence. denies: Dysuria - Musculoskeletal Musculoskeletal: reports: Joint pain (hands), Assistive devices, Transfer issues - Integumentary Integumentary: reports: Other (flaking to scalp without pruritis) - Neurological Neurological: reports: General weakness. denies: Memory problems - Psychiatric Psychiatric: denies: Depression - Endocrine Endocrine: denies: Diabetes type 2 - Hematologic/Lymphatic Hematologic/Lymphatic: denies: Recurrent infections - All Other Systems All Other Systems: reports: Reviewed and negative Physical Exam - Vital Signs Temperature: 36.2 C Pulse Rate: 61 O2 Saturation: 96 (on RA at rest) Blood Pressure: 98/77 (left wrist cuff) - Physical Exam General Appearance: positive: No acute distress, Alert, Other (sitting up in recliner) Eyes Bilateral: positive: No lid inflammation, Conjunctivae nml ENT: positive: No signs of dehydration, Other (b/l temporal wasting, +dentures) Neck: positive: Trachea midline Cardiovascular: positive: Regular rate & rhythm, No murmur Respiratory: positive: No respiratory distress, Breath sounds nml. negative: Rales Abdomen: positive: Non-tender, Soft, Nml bowel sounds Skin: positive: Pallor, Other (flaking to left posterior occiput conistent with Seborrheic dermatitis) Extremities: positive: No pedal edema, Other (Limited ROM left shoulder; contracture of left hand with ridigity to LLE) Neurologic/Psychiatric: positive: Oriented x3, Weakness, Flat affect, Other (+Bradykinesia, +Dysarthria. Smiling and engaged today) Palliative Care - POLST Patient has POLST: Yes POLST Status: DNR, Selective Treatment Pain: Pain improved (see HPI, improved burning pain to hands with initation of voltaren gel) Tiredness/Fatigue: Moderate (4-6) Anorexia: Mild (1-3) Dyspnea: None Depression: None Anxiety: None Sleep: Sleeps well Constipation: Yes, Managed, Intermittent constipation Performance Status: And is wheelchair dependent. Requires 100% assistance for transfers. She is unable to weight-bear. Is incontinent of bowel and bladder. No recent falls. Now unable to feed herself. PPS 30-40% - Palliative Care Discussion: The patient's daughter notices a further functional decline and the patient by noting that she is talking less overall. She continues to have good days and bad days. The patient herself relies on her Yarsanism chiqui although she may not always be as focal regarding this. The patient's daughter, Cara has offered up to family members to come and visit the patient and many of the family members have taken her up upon this and have visited the patient in recent months. Most recently, the patient was visited by her younger sister. The patient herself had previously expressed her greatest discomfort was in regards to the burning sensation that she was having to her hands and her heels. This has subsequently resolved with addition of Voltaren gel application to her hands as well as dosage adjustment to gabapentin orally. The patient herself finds that she is in a comfortable state at the present time. Impression and Recommendations - Palliative Care Impression: This is a devika 84-year-old female with advanced Parkinson's disease with continued functional decline. She is now unable to self feed. She continues to have bad days and good days. She has peripheral neuropathy to her hands and feet with noted improvement after adjustment of her gabapentin regiment as well as addition of Voltaren gel for some arthritic component. Palliative care to continue to provide support for symptom management and anticipatory guidance with a transition to hospice when appropriate. Recommendations/Counseling Done: 1. Peripheral neuropathy to bilateral hands and feet. Noted improvement. Mana nue gabapentin 200 mg in the morning, 200 mg in the afternoon, and 500 mg in the evening. Reviewed with the daughter to ultimately have the gabapentin spaced out evenly during the course of the day for the patient. Presently on 900 mg daily of gabapentin. If needed in the future consider transition to Lyrica based with the patient's response. With adjustment of Voltaren gel the patient has had a positive response for her hands and likely has some underlying arthritic component given her response. She is presently comfortable. Continue to adjust her medication regiment to optimize comfort and limit side effects. 2. Hypertension. Blood pressure today 98/77. No cardiac awareness. Reviewed blood pressure trends taken by the patient's daughter ranging 109-146/72-86. Request that they discontinue hydralazine. Patient likely will require additional titration down of her cardiac medication regimen due to her underlying Parkinson's disease as well as her history of weight loss. Requested the patient's daughter obtain her blood pressure and heart rate trace weekly and record the results. Goal blood pressure is less than 150/90. Continue lisinopril, potassium supplementation and triametrne-HCTZ as ordered. CTM. 3. Protein calorie malnutrition. Secondary to advanced Parkinson's disease. Continue [employer] mosaic cushion while out of bed to optimize comfort and reduce pressure points. As the patient has limited oral intake of fluids during the day, suggested additional fluids from consuming fruits and/or Popsicles. May need to discontinue triametrne-HTCZ in the future due to the patient's oral intake reduction. Continue to in encourage snacks in between meals and to offer items that the patient finds pleasurable such as ice cream. 4. Parkinson's disease. Advanced. Chronic. Progressive. Supportive care and fall precautions. Status post [employer] evaluation with realignment of her throat. Increase hypophonia overall reported by the patient's daughter. Continue car bidopa/levodopa as ordered. Followed by neurologist, Dr. Estrada. Continue to monitor patient's decline and further discuss transition to hospice when appropriate. 5.Advance care planning. POLST is DN AR with selective treatment. Patient continues to have a slow, gradual decline due to her multiple comorbidities. Consider in the next visit to further explore goals of care. Time Spent: F/u in 4-6 weeks or PRN if new/worsening symptoms. Total time spent X minutes with greater than 50% of this spent in counseling and coordination of care with patient and daughter, Cara; review of hospice philosophy and services with daughter; examination of patient; review of pain and symptom management and anticipatory guidance. Disclaimer: The chart note was formulated using voice recognition technology and unfortunately sound alike errors may occur.
== END 2020-02-08 13:01 | disposition home or self-care (01) ==
LOC: PC 13:00
PROVIDERS: ATTEND Nurse Practitioner Family
DX: Z51.5 Encounter for palliative care (principal); G62.9 Polyneuropathy, unspecified; I10 Essential (primary) hypertension; E46 Unspecified protein-calorie malnutrition; G20 Parkinson's disease; Z79.899 Other long term (current) drug therapy; Z99.3 Dependence on wheelchair; Z66 Do not resuscitate
CPT/HCPCS: 99349

== ENCOUNTER 2020-03-07 12:05 | Outpatient (CLI) | payer MEDICARE, OTHER ==
--- NOTE | 2020-03-07 14:33 | CONSULTATION NOTE ---
Palliative Care Follow Up - Referral Referring Provider: Dr. Manoj Jimenez Time of Visit: [id number] Referral setting: Home Referral Reason: Parkinson's Disease/Neuropathy/Constipation - Information Sources Records reviewed: Previous records reviewed History/Review of Systems obtained from: Patient, Family (daughter, Cara) Exam limitations: Clinical condition (dysarthria and hypophonia) - History of Present Illness Update Brief HPI Update: This is a devika 84-year-old female with advanced Parkinson's disease who is wheelchair-bound with dysarthria and hypophonia, peripheral neuropathy, and constipation. The patient has had neuropathy reported with pain and burning to her years that has improved. She was having discomfort to her bilateral hands and was initiated on Voltaren gel which has provided great live relief. Presently, the patient is only requiring Voltaren gel to her right hand. She continues to report numbness to her left hand but no burning pain. Today, she is reporting pain to her left elbow. This is typically in a flexed position and she requires a elbow pad to her left elbow for skin protection. She typically receives a Botox injection to her left shoulder however, her neurology appointment was rescheduled and she is delayed in getting her Botox injection. Her daughter reports that the patient is no longer able to use her hands. When she attempts to use her hands to maneuver utensils during meals it does not last very long and she drops a utensil. Her left hand is in a slight can contracted position. She continues to take some time during meals and continues to require assistance by her daughter. No noted coughing during mealtimes. The daughter, opts to have limited meats in the patient's diet due to texture and chewing. The patient has done better with her dentures realigned and fitted to her. Previously, her dentures were too loose. She did try pured food at one point since this [facility]'s last visit but did not like the texture. She is typically having a bowel movement every 3 to 7 days. There have been periods of time where she will have a bowel movement once a week. She denies any pain with defecation. Her daughter however reports typically upon defecation and is a large amount of stool and take some time to pass. The patient does have a history previously of chronic diarrhea that has subsequently subsided and transition to constipation.She is presently not taking any medication nor dietary modification for constipation. She continues to have her blood pressure taken weekly and has ranged 114-153/69-74. This is after her hydralazine was discontinued. The patient is seen little laying in bed having just been awoken from sleep. Pr ovides no acute distress and is in a laughing mood this morning. Past Medical History: Patient has a past medical history of Parkinson's disease, osteoporosis, C. difficile, hypertension, hyperlipidemia, depression, anxiety, chronic diarrhea, CKD stage III, GERD, TIA, meningioma of the brain, history of fracture of the left inferior pubis ramus, history of fracture of the humerus, femur and scapula. Social History - Living Situation Living arrangement: At home Living Situation: With family (Daughter Cara and her partner, Fili) Support System: The patient moved to [facility] for additional caregiving services. Her daughter, Cara is her main caregiver. They have a caregiver through [facility] who comes 4 hours on Tuesdays and they have recently hired the same individual privately to be paid for hours on Fridays. This is provided a great relief to the patient's daughter, Cara. The patient and her daughter are looking forward to Thanksgiving when the patient's grandson and great grandchildren will be visiting from [place]. They have not seen each other since last [place]. Medications/Allergies - Medications Home Medications: Ambulatory Orders Medication Instructions Recorded Confirmed Triamterene/Hydrochlorothiazid 1 each PO DAILY 06/21/17 03/07/20 [Triamterene-Hctz 37.5-25 mg Cp] Acetaminophen [Tylenol] 650 mg PO Q6H PRN #30 tab 06/23/17 03/07/20 lisinopriL [Lisinopril] 10 mg PO DAILY #30 tablet 06/23/17 03/07/20 Gabapentin 300 mg PO QPM 09/26/18 03/07/20 Omeprazole 20 mg PO DAILY 09/26/18 03/07/20 Carbidopa/Levodopa 0.5 tab PO QID 09/30/18 03/07/20 [Carbidopa-Levodopa 25-100 Tab] Lidocaine Patch 5% [Lidoderm Patch] 1 ea TOP DAILY PRN 09/30/18 03/07/20 Naproxen Sodium 220 mg PO PRN 09/30/18 Loperamide [Imodium] 2 mg PO DAILY PRN 05/08/19 03/07/20 Extra Strength Tincture Cbd 1 drops PO DAILY PM PRN 06/10/19 03/07/20 Potassium Chloride 20 meq PO BID 06/10/19 03/07/20 Gabapentin 200 mg PO QPM MDD take with 300mg 11/16/19 03/07/20 Ketotifen Fumarate [Zaditor] 1 drops EACHEYE BID PRN 11/16/19 03/07/20 Carbidopa/Levodopa 1 tab PO QID 12/07/19 03/07/20 [Carbidopa-Levodopa 25-250 Tab] Gabapentin 200 mg PO QDBREAKFAST 12/07/19 03/07/20 Gabapentin 200 mg PO .AFTERNOON 01/11/20 03/07/20 Diclofenac Sodium [Voltaren] 2 g TP TID PRN MDD right hand/left 01/27/20 03/07/20 elbow polyethylene glycoL 3350 [Miralax] 17 g PO Q48H 03/07/20 03/07/20 - Allergies Allergies/Adverse Reactions: Allergies Allergy/AdvReac Type Severity Reaction Status Date / Time latex Allergy Intermediate Hives Verified 09/26/18 11:31 adhesive tape Allergy Itching Verified 09/26/18 17:25 Review of Systems - Constitutional Constitutional: reports: Fatigue, Other (weight has stablized last MAC 22cm 12/21/2019). denies: Fever - Eyes Eyes: denies: Irritation - Ears, Nose & Throat Ears, Nose & Throat: reports: Hearing loss, Hearing aids, Dentures - Cardiovascular Cardiovascular: denies: Chest pain - Respiratory Respiratory: denies: Cough - Gastrointestinal Gastrointestinal: reports: Constipation (see HPI). denies: Abdominal pain, Vomiting - Genitourinary Genitourinary: reports: Incontinence - Musculoskeletal Musculoskeletal: reports: Stiffness, Limited range of motion, Joint pain (right hand and left elbow), Assistive devices, Transfer issues - Integumentary Integumentary: denies: Rash - Neurological Neurological: reports: General weakness. denies: Memory problems - Psychiatric Psychiatric: denies: Depression - Endocrine Endocrine: denies: Diabetes type 2 - All Other Systems All Other Systems: reports: Reviewed and negative Physical Exam - Vital Signs Temperature: 36.2 C Pulse Rate: 62 O2 Saturation: 97 (on RA at rest) Blood Pressure: 122/64 (left wrist cuff) - Physical Exam General Appearance: positive: No acute distress, Alert, Other (laying in bed) Eyes Bilateral: positive: Normal inspection ENT: positive: No signs of dehydration, Other (b/l temporal wasting, dentures no t in place this AM) Neck: positive: Trachea midline Cardiovascular: positive: Regular rate & rhythm, No murmur Respiratory: positive: No respiratory distress, Breath sounds nml, Rales. negative: Wheezes Abdomen: positive: Non-tender, Soft, Nml bowel sounds. negative: Distended Skin: positive: Pallor. negative: Other Extremities: positive: No pedal edema, Other (Limited ROM left shoulder; contracture of left hand with ridigity to LLE) Neurologic/Psychiatric: positive: Oriented x3, Weakness, Flat affect, Other (+Dysarthria) Palliative Care - POLST Patient has POLST: Yes POLST Status: DNR, Selective Treatment Pain: Comment (see HPI) Drowsiness/Sedation: Moderate (4-6) Nausea: None Anorexia: Mild (1-3) Dyspnea: None Depression: None Anxiety: None Sleep: Sleeps well Constipation: Yes Performance Status: Is wheelchair dependent. Requires 100% assistance for transfers. She is unable to bear weight. She is incontinent of bowel and bladder. Unable to feed herself. No recent falls. PPS 30% - Palliative Care Discussion: The patient continues to have good days and bad days. She has found relief with the pain to her bilateral hands but the use of Voltaren gel. Specifically, she continues to use Voltaren gel to her right hands. She has had improvement of her neuropathic burning pain to her heels and hands but continues to report numbness to her upper extremities. She continues to have left shoulder discomfort and is overdue for her Botox injection that is provided by her neurologist. She continues to remain in good spirits and is looking forward to the holidays when she is going to see family. The patient's daughter reports that the patient had not perceived the threat of the coronavirus until the president of [facility] contracted it. Since the present of the [place] contracted coronavirus the patient herself has been more aware about her interactions with visitors and maintaining appropriate precautions. Impression and Recommendations - Palliative Care Impression: This is a devika 84-year-old female with advanced Parkinson's disease with continued functional decline. She remains unable to feed herself and has good days and bad days. She has had noted improvement with her peripheral neuropathy to her hands and feet with use of her gabapentin as well as Voltaren gel for an arthritic component. She is having complaints of constipation presently not on any interventions. Palliative care to continue provide support for symptom management, anticipatory guidance with a transition to hospice when appropriate. Recommendations/Counseling Done: 1. Referral neuropathy. Noted to bilateral hands and feet. Improved. Continue gabapentin 200 mg in the morning, 200 mg in the afternoon, and 500 mg in the evening. At next time for refill will request gabapentin as a liquid formulation given the patient requiring her medications to be crushed. Continue to adjust her medication regimen to optimize comfort and limit side effects. 2. 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 Improved to left hand as well as right hand. Continue application of Voltaren gel 2 g 3 times daily as needed for pain. Given the patient's complaint regarding her left elbow may apply Voltaren gel 2 g 3 times a day as needed to her left elbow. Continue elbow pad to her left elbow for support as well as localized massage. To follow-up with her neurologist for Botox injection to her left shoulder. 3. Hypertension. No cardiac awareness. Reviewed blood pressure trends taken by the patient's daughter ranging 114-153/69-74. Has tolerated discontinuation of hydralazine. We will continue to monitor further adjustments of her cardiac regimen given the patient's history of weight loss trends. Continue to obtain blood pressure and heart rate weekly and record. Goal blood pressure is less than 150/90 given patient's age and chronic comorbidities. Continue lisinopril, potassium supplementation and triametrne-HCTZ as ordered. 4. Constipation. Previous history of chronic diarrhea. Presently having a bowel movement every 3 to 7 days. Appears to be having a bowel movement closer to the 7-day leslee more regularly. This is multifactorial due to sedentary nature as well as Parkinson's disease. Trial of MiraLAX 17 g dissolved in 4 ounces of liquid every other day for constipation with a goal bowel movement every 3 days. 4. Parkinson's disease. Advanced. Chronic. Progressive. Supportive care and fall precautions. Continue carbidopa/levodopa as ordered by neurology. Followed by neurologist, Dr. Estrada. No evidence of dysphagia during mealtime. Continue to monitor patient's decline and discuss transition to hospice when appropriate. Time Spent: F/u 4-6 weeks or PRN. Total time spent 60 minutes with greater than 50% of this spent in counseling coordination of care with the patient and daughter, Cara; review of peripheral neuropathy and osteoarthritis; examination of patient; review of medication management; review of pain and symptom management as well as anticipatory guidance. Disclaimer: The chart note was formulated using voice recognition technology and unfortunately sound alike errors may occur.
== END 2020-03-07 12:06 | disposition home or self-care (01) ==
LOC: PC 12:05
PROVIDERS: ATTEND Nurse Practitioner Family
DX: Z51.5 Encounter for palliative care (principal); G62.9 Polyneuropathy, unspecified; M19.042 Primary osteoarthritis, left hand; M19.041 Primary osteoarthritis, right hand; I10 Essential (primary) hypertension; K59.00 Constipation, unspecified; G20 Parkinson's disease; Z99.3 Dependence on wheelchair; Z66 Do not resuscitate
CPT/HCPCS: 99350

== ENCOUNTER 2020-04-04 12:00 | Outpatient (CLI) | payer MEDICARE, OTHER ==
--- NOTE | 2020-04-04 17:37 | CONSULTATION NOTE ---
Palliative Care Follow Up - Referral Referring Provider: Dr. Manoj Jimenez Time of Visit: [id number] Referral setting: Home Referral Reason: Parkinson's disease/neuropathy/constipation - Information Sources Records reviewed: Previous records reviewed History/Review of Systems obtained from: Patient, Family (daughter, Cara) Exam limitations: Clinical condition (dysarthria and hypophonia) - History of Present Illness Update Brief HPI Update: This is a devika 84-year-old female with advanced Parkinson's disease who is wheelchair-bound with dysarthria and hypophonia, peripheral neuropathy, and constipation seen in her home setting with her daughter, Cara present. Since last evaluation the patient had an unresponsive episode while the patient's daughter, Cara was out of the home and the patient was in the care of her caregiver. Ultimately the patient came to after she was given some water and the patient herself reports that she was tired and wanted to sleep. They had declined an emergency department evaluation and the patient returned to her baseline status. The patient has had previous unresponsive episodes in the past typically revolving around defecation indicative of a vasovagal response. The patient has had neuropathy with underlying pain to her distal extremities and her gabapentin dose was increased by her neurologist on last assessment approximately 1 to 2 weeks ago. Her neurologist also initiated duloxetine 20 mg daily. The patient is reporting vivid dreams since initiation of duloxetine however, she does not report any distress and the patient's daughter states this is the first time that she has heard this complaint and plans on monitoring moving forward. The patient has stiffness to her distal extremities due to her underlying Parkinson's disease. She received a Botox injection to her left shoulder by neurology and she is scheduled for 3-month follow-up for repeat Botox injection. The patient herself is nonchalant in regards to the effectiveness of the Botox injection. The patient continues to be unable to feed herself independently and is requiring assistance by her daughter or caregivers. There is no noted coughing during mealtimes. The patient previously had a history of chronic diarrhea that has been switched towards constipation. The patient has not had a bowel movement by the third day the daughter has been initiating 17 g of MiraLAX which then results in prompt defecation that continues for several days. The patient denies any pain with de fecation. She has had deprescribing with her antihypertensive medication due to her decreased oral intake and vasovagal episodes. Her blood pressure is being monitored twice a week and has been recorded as 143-168/80 299 with heart rate ranging 52-55. She denies any acute cardiac complaints. The patient is seen sitting up in her recliner out of bed. She is bright and alert and in good spirits and able to project her voice well this morning. Past Medical History: Patient is a past medical history of Parkinson's disease, osteoporosis, C. difficile, hypertension, hyperlipidemia, depression, anxiety, chronic diarrhea, CKD stage III, GERD, TIA, hemangioma of the brain, history of fracture of the left inferior pubis ramus, history of fracture of the humerus, femur and scapula.Patient is a past medical history of Parkinson's disease, osteoporosis, C. difficile, hypertension, hyperlipidemia, depression, anxiety, chronic diarrhea, CKD stage III, GERD, TIA, hemangioma of the brain, history of fracture of the left inferior pubis ramus, history of fracture of the humerus, femur and scapula. Social History - Living Situation Living arrangement: At home Living Situation: With family (Daughter Cara and her partner, Fili) Support System: The patient moved to [facility] for additional caregiving services. Her daughter, Cara is her main caregiver. They have a caregiver through [facility] who comes 4 hours on Saturday that is provided through the the [facility] and they have hired her to be privately paid for a few hours on Fridays. Due to the spike of the coronavirus cases Cara's son and grandchildren would not be visiting from [place] for the . They are going to attempt to have a virtual visit during the holiday. Medications/Allergies - Medications Home Medications: Ambulatory Orders Medication Instructions Recorded Confirmed Triamterene/Hydrochlorothiazid 1 each PO DAILY 06/21/17 04/04/20 [Triamterene-Hctz 37.5-25 mg Cp] Acetaminophen [Tylenol] 650 mg PO Q6H PRN #30 tab 06/23/17 04/04/20 lisinopriL [Lisinopril] 10 mg PO DAILY #30 tablet 06/23/17 04/04/20 Gabapentin 600 mg PO QPM 09/26/18 04/04/20 Omeprazole 20 mg PO DAILY 09/26/18 04/04/20 Carbidopa/Levodopa 0.5 tab PO QID 09/30/18 04/04/20 [Carbidopa-Levodopa 25-100 Tab] Lidocaine Patch 5% [Lidoderm Patch] 1 ea TOP DAILY PRN 09/30/18 04/04/20 Naproxen Sodium 220 mg PO PRN 09/30/18 Loperamide [Imodium] 2 mg PO DAILY PRN 05/08/19 04/04/20 Extra Strength Tincture Cbd 1 drops PO DAILY PM PRN 06/10/19 04/04/20 Potassium Chloride 20 meq PO BID 06/10/19 04/04/20 Ketotifen Fumarate [Zaditor] 1 drops EACHEYE BID PRN 11/16/19 04/04/20 Carbidopa/Levodopa 1 tab PO QID 12/07/19 04/04/20 [Carbidopa-Levodopa 25-250 Tab] Gabapentin 300 mg PO QDBREAKFAST 12/07/19 04/04/20 Gabapentin 300 mg PO .AFTERNOON 01/11/20 04/04/20 Diclofenac Sodium [Voltaren] 2 g TP TID PRN MDD right hand/left 01/27/20 04/04/20 elbow polyethylene glycoL 3350 [Miralax] 8.5 g PO Q48H 03/07/20 04/04/20 - Allergies Allergies/Adverse Reactions: Allergies Allergy/AdvReac Type Severity Reaction Status Date / Time latex Allergy Intermediate Hives Verified 09/26/18 11:31 adhesive tape Allergy Itching Verified 09/26/18 17:25 Review of Systems - Constitutional Constitutional: reports: Fatigue, Weight loss (right MAC 20.5cm today; previous 22cm 12/21/2019--patient perceives a weight loss when looking at her hands). denies: Fever - Ears, Nose & Throat Ears, Nose & Throat: reports: Hearing loss, Hearing aids, Dentures - Cardiovascular Cardiovascular: denies: Chest pain, Edema - Respiratory Respiratory: denies: Cough (no cough noted at meals), SOB at rest - Gastrointestinal Gastrointestinal: reports: Constipation (see HPI). denies: Abdominal pain, Vomiting - Genitourinary Genitourinary: reports: Incontinence. denies: Dysuria - Musculoskeletal Musculoskeletal: reports: Stiffness, Limited range of motion, Joint pain (right hand controlled with voltaren gel), Assistive devices, Transfer issues - Integumentary Integumentary: reports: Other (blister to right heel) - Neurological Neurological: reports: General weakness. denies: Memory problems - Psychiatric Psychiatric: reports: Other (Vivid dreams with initiation of duloxetine/cymbalta). denies: Depression - Endocrine Endocrine: denies: Diabetes type 2 - Hematologic/Lymphatic Hematologic/Lymph: Other (No history of recurrent infections) - All Other Systems All Other Systems: reports: Reviewed and negative Physical Exam - Vital Signs Temperature: 36.2 C Pulse Rate: 60 O2 Saturation: 96 (on RA at rest) Blood Pressure: 148/75 (right wrist cuff, sitting up) - Physical Exam General Appearance: positive: No acute distress, Alert, Other (sitting up in reclienr) Eyes Bilateral: positive: Normal inspection ENT: positive: No signs of dehydration, Other (b/l temporal wasting) Neck: positive: Trachea midline Cardiovascular: positive: Regular rate & rhythm, No murmur Respiratory: positive: No respiratory distress, Breath sounds nml. negative: Wheezes Abdomen: positive: Non-tender, Soft, Nml bowel sounds. negative: Distended Skin: positive: Pallor, Other (Blister, intact to right heel due to deep tissue injury without tenderness to palpation, erythema or warmth) Extremities: positive: No pedal edema, Other (Limited ROM left shoulder; contracture of left hand with ridigity to LLE) Neurologic/Psychiatric: positive: Oriented x3, Weakness, Flat affect, Other (+Dysarthria) Palliative Care - POLST Patient has POLST: Yes POLST Status: DNR, Selective Treatment Pain: Pain unchanged (peripheral neuropathy to distal extremeties), Pain improved (to hands with application of voltaren gel) Sleep: Sleeps well Constipation: Yes, Managed, Intermittent constipation Performance Status: She is wheelchair dependent and requires 100% assistance for transfers. She is unable to bear weight. She is incontinent of bowel and bladder. Unable to feed herself. No recent falls. PPS 30% - Palliative Care Discussion: The patient is optimistic regarding further management of her peripheral neuropathy with dose adjustment of her gabapentin. Despite her difficulty with medication administration and transition to suspension form of gabapentin she preferred the capsules and found that was easier to tolerate administration and would like to transition back to this when her present gabapentin liquid quantity is used up. The patient is in good spirits today and denies depressive symptoms. All of her family has been able to visit her in the last year. When reviewing with the patient today regarding goals of care moving forward in light of a another recent unresponsive episode which the patient herself describes that she "needed my sleep" she would wish to be made comfortable in her familiar setting with transition to hospice services support to support herself as well as her family and more specifically, her daughter Cara. The patient recognizes that she has a chronic, progressive illness that is not curable "until I am 6 feet under." She finds madalyn in her routine and spending quality time with her daughter and primary caregiver, Cara. If the patient were to sustain an acute trauma within the home that is the time that she would wish to transfer to the hospital for stabilization and management but otherwise, she wishes to focus on symptom management with in her home setting. She recognizes the impact that the coronavirus has had regarding end of life circumstances and she does not wish to be restricted from visitors in the future. Impression and Recommendations - Palliative Care Impression: This is a devika 84-year-old female with advanced Parkinson's disease with continued functional decline. She has had weight loss as demonstrated by right MAC of 20.5 cm previously MAC 22 cm in December 2019. She continues to have some symptom burden related to her peripheral neuropathy as well as controlled pain due to osteoarthritis. She has recently had duloxetine introduced to her medication regimen and dose increase of her gabapentin which she has tolerated. Palliative care to continue provide support for symptom management, anticipatory guidance with transition to hospice when a appropriate. Recommendations/Counseling Done: 1. Peripheral neuropathy. Reported to bilateral hands and feet. Neurologist initiated duloxetine 20 mg daily. If patient continues to have reports of vivid dreams that is to be monitored by the patient's daughter then would consider discontinuation given the patient's prior history of sensitivity to antidepression/antianxiety medications in the past. She is presently on liquid dosing of gabapentin and daughter after liquid suspension runs out wishes to switch back to capsule form for ease of administration. Continue gabapentin 300 mg in the morning, 300 mg at noon, and 600 mg at bedtime. Continue to adjust her medication regimen to optimize her comfort and limit side effects. Obtain the CMP at next visit and CC results to patient's neurologist, Dr. José Luis Estrada. We will also fax last obtain lab work in December 2019 for renal function to Dr. Estrada. 2. Deep tissue injury to right heel. Intact skin with blister noted. Recommended to daughter to float the patient's heels to not have direct pressure one her bilateral heels. Recommend obtainment of heel protectors that may be obtained from an online source such as [employer]. Continue moisturization locally to bilateral feet. Continue to monitor. 3. Osteoarthritis. Generalized. Continues to receive Voltaren 2 g twice daily to her right hand with positive response. Advised patient's daughterCara that may administer Voltaren gel 2 g as needed to elbows, hands, or knees not to exceed 32 g daily in a day from all applications with understanding verbalized. Continue to offer localized massage. She is status post Botox injection with her neurologist to her left shoulder approximately 1 week ago. 4. Constipation. Previous history of chronic diarrhea. When administering MiraLAX 17 g every 3 days if no bowel movement the patient then subsequently has multiple bowel movements for several days. Advised daughter to do half a cap of MiraLAX if needed to reduce frequency. 5. Parkinson's disease. Advanced. Chronic. Progressive. Supportive care and fall precautions. Continue carbidopa/levodopa as ordered by neurology. Followed by neurologist, Dr. Estrada. No evidence of dysphagia reported during mealtime. Incontinent of bowel and bladder. Continue to monitor patient's decline and discuss transition to hospice when appropriate. 6. Advanced care planning. Patient has POLST in place as DN AR with selective treatment. See palliative care discussion today for further details. Patient would wish to transfer to the hospital for acute trauma otherwise, she wishes to focus on end-of-life symptom management within her home with her transition to hospice when medically appropriate and her daughter, Cara supports this wish. Time Spent: Follow-up 4 to 6 weeks or as needed Total time spent 70 minutes with greater than 50% of this spent in counseling and coordination of care with the patient and daughterCara; examination of patient; review of medication management; exploration regarding advanced care planning; review of pain and symptom management as well as anticipatory guidance. Disclaimer: The chart note was formulated using voice recognition technology and unfortunately sound alike errors may occur.
== END 2020-04-04 12:01 | disposition home or self-care (01) ==
LOC: PC 12:00
PROVIDERS: ATTEND Nurse Practitioner Family
DX: Z51.5 Encounter for palliative care (principal); G62.9 Polyneuropathy, unspecified; L89.616 Pressure-induced deep tissue damage of right heel; M15.9 Polyosteoarthritis, unspecified; K59.00 Constipation, unspecified; G20 Parkinson's disease; I12.9 Hypertensive chronic kidney disease with stage 1 through stage 4 chronic kidney disease, or unspecified chronic kidney disease; N18.30 Chronic kidney disease, stage 3 unspecified; Z99.3 Dependence on wheelchair; Z66 Do not resuscitate
CPT/HCPCS: 99350

== ENCOUNTER 2020-04-25 12:20 | Outpatient (CLI) | payer MEDICARE, OTHER ==
--- NOTE | 2020-04-25 17:32 | CONSULTATION NOTE ---
Palliative Care Follow Up - Referral Referring Provider: Dr. Manoj Jimenez Time of Visit: 0628-1048 Referral setting: Home Referral Reason: Parkinson's Disease/Neuropathy - Information Sources Records reviewed: Previous records reviewed History/Review of Systems obtained from: Patient, Family (daughter, Cara) Exam limitations: Clinical condition (dysarthria and hypohonia) - History of Present Illness Update Brief HPI Update: This is a devika 84-year-old female with advanced Parkinson's disease who is wheelchair-bound with dysarthria and hypophonia, peripheral neuropathy seen in her home setting with her daughter, Cara present. The patient was recently initiated on duloxetine 20 mg daily by her neurologist due to her underlying neuropathy to her distal 6 remedies in addition to her gabapentin dosage. The patient has noticed positive benefit with addition of duloxetine. She is no longer reporting a burning pain or sensation to her feet and hands. She continues to report numbness most specifically to her right hand that is worrisome to her. Positive has also been that she is only requiring Voltaren gel application to her right hand in the evening. She has a skin tear to her right forearm that is resolving without evidence of infection. Her daughter has been applying local skin care with Neosporin and a nonstick bandage. The patient and her daughter are unclear how this developed. When last seen the patient had a deep tissue injury to her right heel. Since last visit the patient's daughter has obtained a heel protector to float the patient's right heel and the blister has resolved leaving a darkened, purple area to her right heel. The patient denies any tenderness to that site. The patient continues to have fluctuating good days and bad days. When she has a good day she is quite bright and able to speak well. Recently she was able to sing happy birthday day in its entirety with a crescendo on the phone to her family member. This was quite a pleasant surprise for all involved. The patient is seen sitting up in her recliner out of bed. She is bright and alert and able to project her voice well. Past Medical History: Patient has a past medical history of Parkinson's disease, osteoporosis, C. difficile, hypertension, hyperlipidemia, depression, anxiety, chronic diarrhea, CKD stage III, GERD, TIA, hemangioma of the brain, history of fracture of the left inferior pubis ramus, history of fracture of the humerus, femur and scapula, peripheral neuropathy. Social History - Living Situation Living arrangement: At home Living Situation: With family (Daughter Cara and her partner, Fili) Support System: Patient moved to [facility] for additional caregiving services. Her daughter, Cara is her main caregiver. They have a caregiver through [facility] who comes 4 hours on Tuesdays that is provided through the [facility] and they have hired her privately to be present for a few hours on Fridays. Medications/Allergies - Medications Home Medications: Ambulatory Orders Medication Instructions Recorded Confirmed Triamterene/Hydrochlorothiazid 1 each PO DAILY 06/21/17 04/04/20 [Triamterene-Hctz 37.5-25 mg Cp] Acetaminophen [Tylenol] 650 mg PO Q6H PRN #30 tab 06/23/17 04/04/20 lisinopriL [Lisinopril] 10 mg PO DAILY #30 tablet 06/23/17 04/04/20 Gabapentin 600 mg PO QPM 09/26/18 04/04/20 Omeprazole 20 mg PO DAILY 09/26/18 04/04/20 Carbidopa/Levodopa 0.5 tab PO QID 09/30/18 04/04/20 [Carbidopa-Levodopa 25-100 Tab] Lidocaine Patch 5% [Lidoderm Patch] 1 ea TOP DAILY PRN 09/30/18 04/04/20 Naproxen Sodium 220 mg PO PRN 09/30/18 Loperamide [Imodium] 2 mg PO DAILY PRN 05/08/19 04/04/20 Extra Strength Tincture Cbd 1 drops PO DAILY PM PRN 06/10/19 04/04/20 Potassium Chloride 20 meq PO BID 06/10/19 04/04/20 Ketotifen Fumarate [Zaditor] 1 drops EACHEYE BID PRN 11/16/19 04/04/20 Carbidopa/Levodopa 1 tab PO QID 12/07/19 04/04/20 [Carbidopa-Levodopa 25-250 Tab] Gabapentin 300 mg PO QDBREAKFAST 12/07/19 04/04/20 Gabapentin 300 mg PO .AFTERNOON 01/11/20 04/04/20 Diclofenac Sodium [Voltaren] 2 g TP TID PRN MDD right hand/left 01/27/20 04/04/20 elbow polyethylene glycoL 3350 [Miralax] 8.5 g PO Q48H 03/07/20 04/04/20 - Allergies Allergies/Adverse Reactions: Allergies Allergy/AdvReac Type Severity Reaction Status Date / Time latex Allergy Intermediate Hives Verified 09/26/18 11:31 adhesive tape Allergy Itching Verified 09/26/18 17:25 Review of Systems - Constitutional Constitutional: reports: Fatigue, Weight loss (right MAC 20.5cm today; previous 20.5cm 04/04/2020-). denies: Fever - Eyes Eyes: denies: Irritation - Ears, Nose & Throat Ears, Nose & Throat: reports: Hearing loss, Hearing aids, Dentures - Respiratory Respiratory: denies: Cough (not noted during meals) - Gastrointestinal Gastrointestinal: reports: Constipation (bowel movement every 3 days). denies: Abdominal pain - Genitourinary Genitourinary: reports: Incontinence. denies: Dysuria - Musculoskeletal Musculoskeletal: reports: Stiffness, Limited range of motion, Joint pain (right hand controlled with voltaren gel), Assistive devices, Transfer issues - Integumentary Integumentary: reports: Other (deep tissue injury to right heel, improved; skin tear to right forearm) - Neurological Neurological: reports: General weakness. denies: Memory problems - Psychiatric Psychiatric: denies: Depression - Endocrine Endocrine: denies: Diabetes type 2 - Hematologic/Lymphatic Hematologic/Lymph: Other (No history of recurrent infections) - All Other Systems All Other Systems: reports: Reviewed and negative Physical Exam - Vital Signs Temperature: 36.2 C Pulse Rate: 88 O2 Saturation: 96 (on RA) Blood Pressure: 132/89 (right wrist cuff sitting) - Physical Exam General Appearance: positive: No acute distress, Alert, Other (sitting up in recliner, thin and well groomed) Eyes Bilateral: positive: Normal inspection ENT: positive: No signs of dehydration, Other (b/l temporal wasting) Neck: positive: Trachea midline Cardiovascular: positive: Regular rate & rhythm, No murmur Respiratory: positive: No respiratory distress, Breath sounds nml. negative: Wheezes Abdomen: positive: Non-tender, Soft, Nml bowel sounds Skin: positive: Pallor, Other (1)discoloration to right heel consistent with deep tissue injury without bogginess to palpaton, pain or surrounding erythema. 2)Skin tear to right forearm appx 1cm in size with approximated margins, without erythema or discharge. Applied two steri strips to site.) Extremities: positive: No pedal edema, Other (Limited ROM left shoulder; contracture of left hand with ridigity to LLE) Neurologic/Psychiatric: positive: Oriented x3, Weakness, Flat affect, Other (+Dysarthria) Palliative Care - POLST Patient has POLST: Yes POLST Status: DNR, Selective Treatment Pain: Pain improved (no longer with burning sensation to extremities due to neuropathy but continues to have numbness to right hand) Sleep: Sleeps well Constipation: Yes, Managed Performance Status: She is wheelchair dependent and requires 100% assistance with transfers. She is unable to bear weight. She is incontinent of bowel and bladder. Unable to see feed herself. No recent falls. PPS 30% - Palliative Care Discussion: Patient continues to have good days and bad days per both her and her daughter's report. She became tearful when discussing her continued numbness in her right hand expressing fear that this will be persistent for "the rest of my life." We oriented the patient that she has had significant improvement with addition of duloxetine to her gabapentin and she no longer has burning pain that is awaking her from sleep or waking up in the morning in discomfort. This she can to quell some of her fears. Her daughter continues to be a steadfast and loving caregiver. The patient today expressed gratitude to her daughter for the care that she has been pr oviding. The patient is set to reestablish care with a new provider as hers has retired from the community. Request the daughter to follow-up with the primary care office to see if a telemedicine visit may be initiated for transition of care to limit stress upon herself and the patient to leave the home. Results - Lab Results Lab results reviewed: Yes Lab and Imaging Results: 04/25/2020 Sodium 139, potassium 3.6, BUN 21, creatinine 0.7, estimated GFR 79, glucose 91, calcium 9.7 Impression and Recommendations - Palliative Care Impression: This is a devika 84-year-old female with advanced Parkinson's disease with continued functional decline. Her weight loss has stabilized with a right MAC of 20.5 cm. Her burning pain due to her peripheral neuropathy has resolved and her pain due to osteoarthritis to her right hand has improved. However, she continues to report numbness to her right hand due to her neuropathy. Palliative care to continue to provide support for symptom management, anticipatory guidance with a transition to hospice when appropriate. Recommendations/Counseling Done: 1. Peripheral neuropathy. Burning pain significantly improved to bilateral hands and feet however, numbness persists in the right hand. Positive response to duloxetine 20 mg daily. Continue duloxetine as ordered. Continue gabapentin 300 mg in the morning, 300 mg at noon and 600 mg at bedtime. If patient continues to have a positive response to addition of duloxetine then consider gradual dose reduction of gabapentin in the future to reduce polypharmacy. BMP obtained today and no evidence of hyponatremia and requested that lab results be sent to patient's neurologist, Dr. José Luis Estrada. 2. Deep tissue injury to right heel. Blister resolved. No evidence of local infection. Recommended to the patient and daughter to continue to offload the right heel with use of heel protector. Continue moisturization locally to bilateral feet. Reviewed signs and symptoms of infection and when to contact oral[facility] london for further evaluation and intervention with understanding verbalized. 3. Skin tear to right forearm. Resolving. No signs and symptoms of infection. Unavoidable given patient's thin, fragile skin. Steri-Strips x2 in place. Continue local skin care and monitor for signs and symptoms of infection. 4. Osteoarthritis. Generalized. Improved. Has reduced the need for her Voltaren gel 2 g application once daily only to her right hand. Patient's daughter, Cara is aware that Voltaren gel cannot exceed 32 g daily in a day from all applications. Continue to offer localized massage. 5. Parkinson's disease. Advanced. Chronic. Progressive. Supportive care and fall precautions. No evidence of dysphagia reported during meals. Continue carbidopa/levodopa as ordered by neurology. Followed by neurologist Dr. Estrada. Continue to monitor the patient's decline and discuss to transition to hospice when appropriate. Time Spent: Follow-up 4 to 6 weeks or as needed if new or worsening symptoms. Total time spent 40 minutes with greater than 50% of the spent in counseling coordination of care with the patient and daughter, Cara; examination of rita ent; review of medication management; review of pain and symptom management as well as anticipatory guidance. Disclaimer: The chart note was formulated using voice recognition technology and unfortunately sound alike errors may occur.
== END 2020-04-25 12:21 | disposition home or self-care (01) ==
LOC: PC 12:20
PROVIDERS: ATTEND Nurse Practitioner Family
DX: Z51.5 Encounter for palliative care (principal); G62.9 Polyneuropathy, unspecified; S51.811D Laceration without foreign body of right forearm, subsequent encounter; M15.0 Primary generalized (osteo)arthritis; G20 Parkinson's disease; I12.9 Hypertensive chronic kidney disease with stage 1 through stage 4 chronic kidney disease, or unspecified chronic kidney disease; N18.30 Chronic kidney disease, stage 3 unspecified; Z99.3 Dependence on wheelchair; Z66 Do not resuscitate
CPT/HCPCS: 99349

== ENCOUNTER 2020-04-25 13:00 | Outpatient (CLI) | payer MEDICARE, OTHER ==
[2020-04-25 16:21] LABS: CALCIUM 9.7 mg/dL (8.5-10.3); CREATININE 0.7 mg/dL (0.4-1.0)
== END 2020-04-25 23:59 | disposition home or self-care (01) ==
LOC: LAB.R 13:00
PROVIDERS: ATTEND Nurse Practitioner Family
DX: I12.9 Hypertensive chronic kidney disease with stage 1 through stage 4 chronic kidney disease, or unspecified chronic kidney disease (principal); N18.30 Chronic kidney disease, stage 3 unspecified
CPT/HCPCS: 80048

== ENCOUNTER 2020-05-24 13:00 | Outpatient (CLI) | payer MEDICARE, OTHER ==
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
--- OUTSIDE RECORDS SUMMARY | 2020-05-25 04:53 | EXTERNAL MEDICAL SUMMARY RPT | Continuity of Care Document ---
:1935 Demographics Phone Unavailable Preferred Language Eritrean Marital Status Unknown Jainism Affiliation Unknown Race Unknown Ethnic Group Unknown Author Organization [place] Address [address] [place] [address] Phone Care Team Providers Name Role Phone FACP Unavailable Unavailable Rochier Unavailable Unavailable Problems date description facility 2020-04-25 00:00 ESSENTIAL (PRIMARY) HYPERTENSION [facility] 2020-04-25 13:00 ESSENTIAL (PRIMARY) HYPERTENSION [facility] 2020-04-25 13:00 HYPERTENSIVE CHRONIC KIDNEY [facility] DISEASE W STG 1-4/UNSP CHR KDNY 2020-04-25 13:00 CHRONIC KIDNEY DISEASE, STAGE 3 [facility] UNSPECIFIED Allergies date description facility BEE VENOM PROTEIN (HONEY BEE) [facility] WASP VENOM [facility] METOCLOPRAMIDE HCL [facility] CITALOPRAM [facility] Medications date description facility 2020-04-06 00:00:00 null [facility] 2020-04-06 00:00:00 null [facility] 2020-04-06 00:00:00 POLYETHYLENE GLYCOL [facility] 2020-04-06 00:00:00 POLYETHYLENE GLYCOL [facility] Results Social History date description facility [id number]
== END 2020-05-24 13:01 | disposition home or self-care (01) ==
LOC: PC 13:00
PROVIDERS: ATTEND Nurse Practitioner Family
DX: Z51.5 Encounter for palliative care (principal); G62.9 Polyneuropathy, unspecified; L89.616 Pressure-induced deep tissue damage of right heel; M89.49 Other hypertrophic osteoarthropathy, multiple sites; G20 Parkinson's disease; K59.00 Constipation, unspecified; S09.91XA Unspecified injury of ear, initial encounter; I12.9 Hypertensive chronic kidney disease with stage 1 through stage 4 chronic kidney disease, or unspecified chronic kidney disease; N18.30 Chronic kidney disease, stage 3 unspecified; Z66 Do not resuscitate
CPT/HCPCS: 99349

== ENCOUNTER 2020-07-05 13:30 | Outpatient (CLI) | payer MEDICARE, OTHER ==
--- NOTE | 2020-07-05 16:50 | CONSULTATION NOTE ---
Palliative Care Follow Up - Referral Referring Provider: Dr. Aldo Kirkland Time of Visit: [id number] Referral setting: Home Referral Reason: Parkinson's disease/neuropathy/failure to thrive - Information Sources Records reviewed: Previous records reviewed History/Review of Systems obtained from: Patient, Family (daughter, Cara) Exam limitations: Clinical condition (dysarthria and hypohonia) - History of Present Illness Update Brief HPI Update: This is a devika 84-year-old female with advanced Parkinson's disease who is wheelchair-bound with dysarthria and hypophonia, peripheral neuropathy, failure to thrive seen in her home setting with her daughter, Cara present The patient is quite vocal today in her ability to project her voice. Her daughter as well as the patient herself is noticing more stiffness first thing in the morning prior to her first dose of carbidopa/levodopa. She will have extension of her right arm out of the covers as well as her right lower extremity due to rigidity and stiffness. She is scheduled to see her neurologist, Dr. Estrada on for reevaluation. Typically she is now requiring assistance with feeding first thing in the morning and as the day progresses she is able to self feed after the onset of her carbidopa/levodopa. She is not having any coughing affiliated with meals. Her daughter reports that she is eating well. Since introduction of duloxetine 20 mg daily the patient has had a reduction in her neuropathy. Last visit midday gabapentin was discontinued and she continues on gabapentin 300 mg in the morning and 600 mg in the evening with no increased reports of pain. She is no longer having burning pain to her hands or feet. She does not have any pain when feeding herself. She does report discomfort when she has to move the blanket. No restless legs syndrome reported. The patient's daughter will typically give her medications in yogurt or applesauce for ease of administration. The patient continues to be interested and any medication reduction if at all possible. She is sleeping well overnight. She has not taking naps during the day and feels well rested. The patient is seen bright and alert sitting up in her recliner, out of bed. No evidence of acute distress. Past Medical History: Patient has a past medical history of Parkinson's disease, osteoporosis, C. difficile, hypertension, hyperlipidemia, depression, anxiety, chronic diarrhea, CKD stage III, GERD, TIA, Meningioma of the brain, history of fracture of the left inferior pubis ramus, history of fracture of the humerus, femur and scapula, peripheral neuropathy. Social History - Living Situation Living arrangement: At home Living Situation: With family (Daughter Cara and her partner, Fili) Support System: Patient relocated to [facility] for additional caregiving services. Her daughter, Cara is her main caregiver. They have a caregiver, through rest care who comes 4 hours on Tuesdays that is provided through the [facility] and they have hired her privately to be present for a few hours on Fridays. The patient's other daughters were supposed to come to the [place] but for various reasons the strips had to be canceled. The patient's daughter, Cara is looking to take the patient down closer to [place] to have a visit with her other 2 daughters at a handicapped equipped a hotel the first weekend of July which she hopes to for fill and make happen. Today, the patient did become tearful when reviewing she became upset after hearing about the of David Mcclain. Medications/Allergies - Medications Home Medications: Ambulatory Orders Medication Instructions Recorded Confirmed Triamterene/Hydrochlorothiazid 1 each PO DAILY 06/21/17 05/24/20 [Triamterene-Hctz 37.5-25 mg Cp] Acetaminophen [Tylenol] 650 mg PO Q6H PRN #30 tab 06/23/17 05/24/20 lisinopriL [Lisinopril] 10 mg PO DAILY #30 tablet 06/23/17 05/24/20 Gabapentin 600 mg PO QPM 09/26/18 05/24/20 Omeprazole 20 mg PO DAILY 09/26/18 05/24/20 Carbidopa/Levodopa 0.5 tab PO QID 09/30/18 05/24/20 [Carbidopa-Levodopa 25-100 Tab] Lidocaine Patch 5% [Lidoderm Patch] 1 ea TOP DAILY PRN 09/30/18 05/24/20 Naproxen Sodium 220 mg PO PRN 09/30/18 Loperamide [Imodium] 2 mg PO DAILY PRN 05/08/19 05/24/20 Extra Strength Tincture Cbd 1 drops PO DAILY PM PRN 06/10/19 04/04/20 Potassium Chloride 20 meq PO BID 06/10/19 05/24/20 Ketotifen Fumarate [Zaditor] 1 drops EACHEYE BID PRN 11/16/19 05/24/20 Carbidopa/Levodopa 1 tab PO QID 12/07/19 05/24/20 [Carbidopa-Levodopa 25-250 Tab] Diclofenac Sodium [Voltaren] 2 g TP TID PRN MDD right hand/left 01/27/20 05/24/20 elbow polyethylene glycoL 3350 [Miralax] 8.5 g PO Q48H 03/07/20 05/24/20 DULoxetine [Cymbalta] 20 mg PO DAILY 07/05/20 07/05/20 - Allergies Allergies/Adverse Reactions: Allergies Allergy/AdvReac Type Severity Reaction Status Date / Time latex Allergy Intermediate Hives Verified 09/26/18 11:31 adhesive tape Allergy Itching Verified 09/26/18 17:25 Review of Systems - Constitutional Constitutional: reports: Other (right MAC today 19.5cm; previous MAC 20.5cm). denies: Fatigue, Fever - Eyes Eyes: denies: Irritation - Ears, Nose & Throat Ears, Nose & Throat: reports: Hearing loss, Hearing aids, Dentures - Cardiovascular Cardiovascular: denies: Chest pain, Edema - Respiratory Respiratory: reports: Other (denies dysphagia during meals). denies: Cough - Gastrointestinal Gastrointestinal: reports: Constipation (controlled), Good appetite (requires assistance with meals). denies: Abdominal pain, Vomiting - Genitourinary Genitourinary: reports: Incontinence. denies: Dysuria - Musculoskeletal Musculoskeletal: reports: Stiffness, Limited range of motion, Assistive devices, Transfer issues. denies: Joint pain - Integumentary Integumentary: reports: Other (resolution of right heel deep tissue injury) - Neurological Neurological: reports: General weakness. denies: Memory problems - Psychiatric Psychiatric: denies: Depression - Endocrine Endocrine: reports: Other (reports coolness to extremities) - Hematologic/Lymphatic Hematologic/Lymph: reports: Other (No history of recurrent infections) - All Other Systems All Other Systems: reports: Reviewed and negative Physical Exam - Vital Signs Temperature: 36.1 C Pulse Rate: 70 Blood Pressure: 140/74 (right wrist cuff) - Physical Exam General Appearance: positive: No acute distress, Alert, Other (sitting up in recliner, thin, frail and well groomed) Eyes Bilateral: positive: Normal inspection ENT: positive: No signs of dehydration, Other (b/l temporal wasting) Neck: positive: Trachea midline Cardiovascular: positive: Regular rate & rhythm, No murmur Respiratory: positive: No respiratory distress, Breath sounds nml. negative: Wheezes Abdomen: positive: Non-tender, Soft, Nml bowel sounds Skin: positive: Pallor, Other (Resolution of deep tissue injury to right heel and some dryness noted to left heel.) Extremities: positive: No pedal edema, Other (Limited ROM left shoulder; contracture of left hand with ridigity to LLE; +stiffness noted to RUE with passive ROM) Neurologic/Psychiatric: positive: Oriented x3, Weakness, Flat affect, Other (+Dysarthria; in good spirits and engaged today) Palliative Care - POLST Patient has POLST: Yes POLST Status: DNR, Selective Treatment Pain: No pain Constipation: Managed - Palliative Care Discussion: Patient has had an improvement of her peripheral neuropathy with introduction of duloxetine to her gabapentin regimen. She has tolerated dose reduction of gabapentin and would further like to discontinue additional medications and therefore will discontinue gabapentin in the morning and remain on gabapentin 600 mg in the evening. Discussed with the patient and daughter would recommend discussing with Dr. Estrada as she has a pending appointment on for long-acting dose of carbidopa/levodopa overnight to reduced parkinsonian symptoms of stiffness in the morning. Would also discuss use of an oral disintegrating tablet of carbidopa/levodopa to use first thing in the morning and allow the medication to take effect and to then move forward with assistance with ADLs after reduction in symptoms and for ease of administration. Impression and Recommendations - Palliative Care Impression: A 84-year-old female with advanced Parkinson's disease with continued, functional decline that is slow. She is demonstrating some weight loss with most recent right MAC 19.5 cm today. Her peripheral neuropathy has improved and she is no longer requiring Voltaren gel and will further reduce her gabapentin doses and monitor her response. Palliative care to continue provide support for symptom management, anticipatory guidance, care coordination with a transition to hospice when medically appropriate. Recommendations/Counseling Done: 1. Peripheral neuropathy. Improved. Continue duloxetine 20 mg daily. Further dose reduction of gabapentin in the morning. Have gabapentin 300 mg every other morning x7 days then discontinue. Continue gabapentin 600 mg at bedtime as the patient is typically most symptomatic overnight due to her peripheral neuropathy. Continue to follow. 2. Osteoarthritis, generalized. Improved. No longer requiring routine application of Voltaren gel. She continues to have Voltaren gel available to be applied if needed not to exceed 32 g daily from all applications. 3. Hypertension. No cardiac awareness. Reviewed blood pressures trends taken by the patient's daughter ranging 130-174/73-100. Continue to obtain blood pressure and heart rate weekly and record. Goal blood pressure is less than 150/90 given the patient's age and chronic comorbidities. Continue lisinopril, potassium supplementation and to try to wean HCTZ as ordered. 4. Protein calorie malnutrition. Secondary to advanced Parkinson's disease. Continue to encourage snacks in between meals and to offer items that the patient finds pleasurable. Right MAC today 19.5 cm. Continue reduction of pressures points. Continue to monitor. 5. Parkinson's disease. Advanced chronic chronic. Progressive. Supportive care and fall precautions. Continue carbidopa/levodopa as ordered. Followed by Dr. Estrada. Request that patient and daughter, Cara discuss on appointment with Dr. Estrada on for adjustment of carbidopa/levodopa for overnight management of symptoms and change form of administration first thing in the morning to symptom management. Total time spent 45 minutes with greater than 50% of this spent in counseling and coordination of care with patient and daughter Cara; further dose reduction of gabapentin reviewed; review of pain and symptom management and anticipatory guidance. Disclaimer: The chart note was formulated using voice recognition technology and unfortunately sound alike errors may occur.
== END 2020-07-05 13:31 | disposition home or self-care (01) ==
LOC: PC 13:30
PROVIDERS: ATTEND Nurse Practitioner Family
DX: Z51.5 Encounter for palliative care (principal); G20 Parkinson's disease; R47.1 Dysarthria and anarthria; G62.9 Polyneuropathy, unspecified; E46 Unspecified protein-calorie malnutrition; R62.7 Adult failure to thrive; M19.90 Unspecified osteoarthritis, unspecified site; M81.0 Age-related osteoporosis without current pathological fracture; I13.10 Hypertensive heart and chronic kidney disease without heart failure, with stage 1 through stage 4 chronic kidney disease, or unspecified chronic kidney disease; N18.30 Chronic kidney disease, stage 3 unspecified; H91.90 Unspecified hearing loss, unspecified ear; R32 Unspecified urinary incontinence; Z99.3 Dependence on wheelchair; Z79.899 Other long term (current) drug therapy; Z91.81 History of falling; Z86.73 Personal history of transient ischemic attack (TIA), and cerebral infarction without residual deficits
CPT/HCPCS: 99349

== ENCOUNTER 2020-08-10 13:10 | Outpatient (CLI) | payer MEDICARE, OTHER ==
--- NOTE | 2020-08-10 16:51 | CONSULTATION NOTE ---
Palliative Care Follow Up - Referral Referring Provider: Dr. Aldo Kirkland Time of Visit: [id number] Referral setting: Home Referral Reason: Parkinsons' Disease/Neuropathy/Failure to Thrive - Information Sources Records reviewed: Previous records reviewed History/Review of Systems obtained from: Patient, Family (daughter, Cara) Exam limitations: Clinical condition (Dysarthria and hypohonia) - History of Present Illness Update Brief HPI Update: Is a devika 84-year-old female with advanced Parkinson's disease who is wheelchair-bound with dysarthria and hypophonia, peripheral neuropathy, failure to thrive seen in her home setting with her daughter, Cara present. The patient's neurologist, Dr. Estrada is leaving the state and she will have a new neurologist. When last evaluated by Dr. Estrada on 07/07 with discussion of the patient's carbidopa/levodopa he indicated that there was not much more to be done for the patient from a medical standpoint due to the advancement of her Parkinson's disease. The patient's daughter recognizes that there is slow progression of the patient's motor ability due to her stiffness and contractures due to her underlying Parkinson's disease despite administration of the carbidopa levodopa and Botox injections. She has been getting Botox injections to both upper extremities. The daughter and patient have not noted benefit from these injections and plan to follow-up with the next neurologist regarding continuation. The patient does have a history of a meningioma of the brain that has remained stable in size for several years. The patient denies headaches or visual changes. She does not wish to proceed with any surgical interventions at this moment in time or in the future for the meningioma. Both the patient and the daughter have questions regarding follow-up for the meningioma. The patient reports intermittent visualization of spirits. This typically occ urs in the computer forensic examiner hours. She denies seeing things that are not there at other times. She is aware that these images are not real. She does not appear to be frightened by them. Since last evaluation she has discontinued her gabapentin in the morning and continues with gabapentin 600 mg in the evening. She is not had any increased reports of pain. She is no longer having the burning pain to her hands or feet. She continues to report and numbness sensation to her bilateral hands. No restless leg symptoms reported. The patient is seen bright and alert sitting up in her recliner out of bed. No evidence of acute distress. She is looking forward to her upcoming birthday democrat with family later this week. Past Medical History: Patient has a past medical history of Parkinson's disease, osteoporosis, C. difficile, hypertension, hyperlipidemia, depression, anxiety, chronic diarrhea, CKD stage III, GERD, TIA, Meningioma of the brain, history of fracture of the left inferior pubis ramus, history of fracture of the humerus, femur and scapula, peripheral neuropathy. Social History - Living Situation Living arrangement: At home Living Situation: With family (Daughter Cara and her partner, Fili) Support System: Patient relocated to [facility] for additional caregiving services. Her daughter, Cara is her main caregiver. They have a caregiver, through [facility] who comes 4 hours on Tuesdays that is provided through the [facility] and they have hired her privately to be present for a few hours on Fridays. They have a case management assistant through [facility], Helga. The patient's daughter, Cara was able to have two weekend getaways with the patient being cared for by her other daughters. Cara is next planning to attend a family reunion November for 2 weeks if there is a respite facility for the paitient to stay at as [facility] is no longer providing Respite Care. The patient's other daughters now recognize the degree of difficulty in caring for the patient and will be available for more short respite stays for Cara in the future. Medications/Allergies - Medications Home Medications: Ambulatory Orders Medication Instructions Recorded Confirmed Triamterene/Hydrochlorothiazid 1 each PO DAILY 06/21/17 05/24/20 [Triamterene-Hctz 37.5-25 mg Cp] Acetaminophen [Tylenol] 650 mg PO Q6H PRN #30 tab 06/23/17 05/24/20 lisinopriL [Lisinopril] 10 mg PO DAILY #30 tablet 06/23/17 05/24/20 Gabapentin 300 mg PO QPM 09/26/18 05/24/20 Omeprazole 20 mg PO DAILY 09/26/18 05/24/20 Carbidopa/Levodopa 0.5 tab PO QID 09/30/18 05/24/20 [Carbidopa-Levodopa 25-100 Tab] Lidocaine Patch 5% [Lidoderm Patch] 1 ea TOP DAILY PRN 09/30/18 05/24/20 Naproxen Sodium 220 mg PO PRN 09/30/18 Loperamide [Imodium] 2 mg PO DAILY PRN 05/08/19 05/24/20 Extra Strength Tincture Cbd 1 drops PO DAILY PM PRN 06/10/19 04/04/20 Potassium Chloride 20 meq PO BID 06/10/19 05/24/20 Ketotifen Fumarate [Zaditor] 1 drops EACHEYE BID PRN 11/16/19 05/24/20 Carbidopa/Levodopa 1 tab PO QID 12/07/19 05/24/20 [Carbidopa-Levodopa 25-250 Tab] Diclofenac Sodium [Voltaren] 2 g TP TID PRN MDD right hand/left 01/27/2005/24 elbow polyethylene glycoL 3350 [Miralax] 8.5 g PO Q48H 03/07/20 05/24/20 DULoxetine [Cymbalta] 20 mg PO DAILY 07/05/20 07/05/20 - Allergies Allergies/Adverse Reactions: Allergies Allergy/AdvReac Type Severity Reaction Status Date / Time latex Allergy Intermediate Hives Verified 09/26/18 11:31 adhesive tape Allergy Itching Verified 09/26/18 17:25 Review of Systems - Constitutional Constitutional: reports: Other (right MAC today 19.5cm; previous MAC 19.5cm in 06/2020). denies: Fever - Eyes Eyes: denies: Irritation, Blurred vision - Ears, Nose & Throat Ears, Nose & Throat: reports: Hearing loss, Hearing aids, Dentures - Cardiovascular Cardiovascular: denies: Chest pain, Lightheadedness - Respiratory Respiratory: reports: Other (denies dysphagia during meals). denies: Cough - Gastrointestinal Gastrointestinal: reports: Constipation (controlled with bowel movement every 3 days and if more than that timeframe the daughter will utilize 1 dose of miralax with postive effect), Good appetite (requires assistance with meals). denies: Abdominal pain, Vomiting - Genitourinary Genitourinary: reports: Incontinence. denies: Dysuria - Musculoskeletal Musculoskeletal: reports: Stiffness, Limited range of motion, Assistive devices, Transfer issues. denies: Joint pain - Integumentary Integumentary: denies: Pigment changes - Neurological Neurological: reports: General weakness. denies: Headache, Dizziness, Memory problems - Psychiatric Psychiatric: reports: Hallucinations (see HPI). denies: Depression - Hematologic/Lymphatic Hematologic/Lymph: reports: Other (No history of recurrent infections) - All Other Systems All Other Systems: reports: Reviewed and negative (daughter provides supplementation of ROS) Physical Exam - Vital Signs Temperature: 36.3 C Pulse Rate: 67 O2 Saturation: 95 (on RA at rest) Blood Pressure: 132/64 (left arm) - Physical Exam General Appearance: positive: No acute distress, Alert, Other (sitting up in recliner, thin, frail and well groomed) Eyes Bilateral: positive: Normal inspection ENT: positive: No signs of dehydration, Other (b/l temporal wasting) Neck: positive: Trachea midline Cardiovascular: positive: Regular rate & rhythm, No murmur Respiratory: positive: No respiratory distress, Breath sounds nml, Rales (fine, BLL, likely 2/2 atelectasis) Abdomen: positive: Non-tender, Soft, Nml bowel sounds Skin: positive: Pallor Extremities: positive: No pedal edema, Other (Limited ROM left shoulder; contracture of left hand with less ridigity to LLE then typical; +some stiffness with passive ROM of RUE; no drift of BLE during evaluation today as the LLE will typically involuntary rise from contraction) Neurologic/Psychiatric: positive: Oriented x3, Weakness, Flat affect, Other (+Dysarthria; in good spirits and engaged today) Palliative Care - POLST Patient has POLST: Yes POLST Status: DNR, Selective Treatment Pain: Comment (controlled, see HPI) Constipation: Managed - Palliative Care Discussion: The patient has done well with reduction of her gabapentin and would like to further reduce her pill burden is open to trialing her gabapentin to only 300 mg in the evening continue her duloxetine 20 mg daily. She open up today about seeing "spirits" in her room in the computer forensic examiner hours intermittently. Unclear if this is a hallucination due to her Parkinson's disease versus visual disturbance versus awakening from REM sleep. The patient does not appear to be troubled by this. Discussed potential management with medication if this continues to be more regular in occurrence or if the patient appears to be troubled by this and both the patient and daughter verbalized understanding and agreement. The patient is very much looking forward to her upcoming birthday celebration with her family. She continues to have a gradual decline due to her Parkinson's disease and per her daughter's report appears to be tighter in her musculature. Both the patient and her daughter have not found that the recent Botox injections have provided any difference in plan to follow-up with a new neurologist regarding continuation. Impression and Recommendations - Palliative Care Impression: This is a devika 84-year-old female with advanced Parkinson's disease with continued, functional decline that is slowly progressive. Her right MAC remains stable at 19.5 cm. Her peripheral neuropathy continues to be controlled and will further reduce her gabapentin and monitor her response. Unclear if she is having reports of hallucinations due to her underlying Parkinson's disease, coming out of REM sleep, or due to medication side effect. We will continue to monitor closely. Palliative care to continue provide support for symptom management, anticipatory guidance, care coordination with transition to hospice when medically appropriate. Recommendations/Counseling Done: 1. Peripheral neuropathy. Controlled. Continue duloxetine 20 mg daily. Has tolerated discontinuation of gabapentin in the morning. Decrease gabapentin to 300 mg at bedtime and monitor the patient's response. We will continue to titrate off gabapentin and increase duloxetine as needed for management of symptoms. Continue to follow. 2. Hypertension. No cardiac awareness. Reviewed blood pressure log taken by the patient's daughter ranging 118-154/68-92. Continue to obtain blood pressure and heart rate weekly and record. Goal blood pressure is less than 150/90 given the patient's advanced age and comorbidities. Continue lisinopril, potassium supplementation and triamiterene/HCTZ as prescribed. Refill of triamiterene/HCTZ sent to [facility] per daughter's request. CTM. 3. Parkinson's disease. Advanced. Chronic. Progressive. Supportive care and fall precautions. Continue carbidopa/levodopa as ordered. Is transitioning to a new neurologist has Dr. Estrada has moved out of state. Unclear if the patient's Botox injections are providing benefit and encouraged the patient and daughter to discuss continuation of Botox injections with the next neurologist. Continue to monitor. 4. Protein calorie malnutrition. Secondary to advanced Parkinson's disease. Continue to encourage snacks in between meals and offer items that the patient finds pleasurable. Right MAC today 19.5 cm and remained stable. Continue reduction of pressure points. Continue to monitor. 5. COVID-19 risk. Patient declines administration of Covid19 vaccination due to her believes and recognizes her risk. Given that she is isolated in her home with minimal contact within her bubble she has a reduced risk. Her daughter, Cara has been fully vaccinated. Provided contact information for [facility] for [facility] vaccine administration if the patient decides to change her mind. Questions answered and addressed. 6. GERD. Controlled. Continue omeprazole as ordered. Refill for omeprazole sent to [facility] per daughter's report request. 7. Hallucinations, questionable. Unclear if patient is having visual hallucinations due to her underlying Parkinson's disease. Her reports are intermittent and she is not frightened. May also be when she is aroused out of REM sleep that this may be visualized. Advised the patient and daughter to keep an eye on these hallucinations and if become more prevalent or the patient becomes fearful then will managed with an medication such as seroquel or nuplazid. CTM. 8. Meningioma. Patient's daughter reports size has been stable for several years. As the patient would not elect to undergo any intervention such as surgery and the patient is asymptomatic with not proceed with any further monitoring. Total time spent 60 minutes with greater than 50% of this spent in counseling and coordination of care with patient and daughter, Cara; further dose reduction of gabapentin; review of COVID-19 risk and vaccination; examination of patient;, review of symptom management and anticipatory guidance. Disclaimer: The chart note was formulated using voice recognition technology and unfortunately sound alike errors may occur.
== END 2020-08-10 13:11 | disposition home or self-care (01) ==
LOC: PC 13:10
PROVIDERS: ATTEND Nurse Practitioner Family
DX: Z51.5 Encounter for palliative care (principal); G62.9 Polyneuropathy, unspecified; I12.9 Hypertensive chronic kidney disease with stage 1 through stage 4 chronic kidney disease, or unspecified chronic kidney disease; N18.30 Chronic kidney disease, stage 3 unspecified; G20 Parkinson's disease; E46 Unspecified protein-calorie malnutrition; K21.9 Gastro-esophageal reflux disease without esophagitis; R44.9 Unspecified symptoms and signs involving general sensations and perceptions; Z66 Do not resuscitate
CPT/HCPCS: 99350

== ENCOUNTER 2020-09-28 13:40 | Outpatient (CLI) | payer MEDICARE, OTHER ==
--- NOTE | 2020-09-28 17:34 | CONSULTATION NOTE ---
Palliative Care Follow Up - Referral Referring Provider: Dr. Sterling Kirkland Time of Visit: 5131-1035 Referral setting: Home Referral Reason: Parkinsons Disease/Hallucinations/FTT - Information Sources Records reviewed: Previous records reviewed History/Review of Systems obtained from: Patient, Family (daughter, Cara) Exam limitations: Clinical condition (Dysarthria and hypohonia) - History of Present Illness Update Brief HPI Update: This is a devika 85-year-old female with advanced Parkinson's disease with dysar thria and hypophonia, peripheral neuropathy, failure to thrive with increased hallucinations seen in her home setting with her daughter, Cara present. The patient continues on carbidopa/levodopa for management of her Parkinson's symptoms. However, she continues to have stiffness and contractures due to her underlying Parkinson's disease despite history of Botox injections to her upper extremities. The patient's previous neurologist has relocated out of state and the new neurologist does not do Botox injections and she will have to go to a another site for administration. The daughter has been administering carbidopa/levodopa 25/100 mg ODT for seen in the morning. This is administered before the patient gets out of bed however, the patient and daughter have not noticed much difference in administration. The patient continues to have good days and bad days. However, there are more days that the patient is "spacey" and more days that she is not communicating or talking. The patient also relays hallucinations regarding "evil spirits when she awakens from sleep intermittently. The patient continues to do well overall with her meals however, there was a recent episode where the patient was unable to expel mouthwash independently as she could not recall how to do the motions a few weeks ago. Therefore, the patient's daughter has now obtained sponges for mouth care if needed in the future. She does have an intermittent cough with liquids and is able to clear. No history of fever. On last evaluation her gabapentin was titrated down to 300 mg in the evening and she continues on duloxetine. She is not had any increased reports of pain per her daughter's report. She is no longer having burning pain in her hands and feet. Upon review of the patient's weekly blood pressure log taken once a week her systolic blood pressures range 134-145/75-90. No reports of cardiac symptoms. Patient is seen sitting up out of bed in her recliner. No evidence of acute distress. She is however, unable to project her voice as she typically does on past evaluations and is very soft-spoken today and is not engaged in the conversation and appears to be easily distracted and staring off into space. Past Medical History: Patient has a past medical history of Parkinson's disease, osteoporosis, C. difficile, hypertension, hyperlipidemia, depression, anxiety, chronic diarrhea, CKD stage III, GERD, TIA, meningioma of the brain, history of fracture of the left inferior pubis ramus, history of fracture of the humerus, femur and scapula, peripheral neuropathy, cognitive impairment. Social History - Living Situation Living arrangement: At home Living Situation: With family (Daughter Cara and her partner, Fili) Support System: Patient relocated [facility] for additional caregiving services. Her daughter, Cara is her main caregiver. They have a caregiver through [facility] who comes 4 hours on Tuesdays that is provided through the [facility] and they have hired her privately to be present for a few hours on Fridays. They have a employment case manager through [facility], Helga. The patient's daughter, Cara recently went to [place] and her sister took care of the patient. The patient reportedly was distraught when Cara left and was happy upon her return. Cara is planning to attend a family reunion 13 November for 2 weeks and the patient will have respite at [facility]. [place] has indicated that they will be able to feed the patient in the dining room if she comes down. The patient's private caregiver will be coming to assist while the patient is at [facility]. Medications/Allergies - Medications Home Medications: Ambulatory Orders Medication Instructions Recorded Confirmed Triamterene/Hydrochlorothiazid 1 each PO DAILY 06/21/17 05/24/20 [Triamterene-Hctz 37.5-25 mg Cp] Acetaminophen [Tylenol] 650 mg PO Q6H PRN #30 tab 06/23/17 05/24/20 lisinopriL [Lisinopril] 10 mg PO DAILY #30 tablet 06/23/17 05/24/20 Omeprazole 20 mg PO DAILY 09/26/18 05/24/20 Carbidopa/Levodopa 0.5 tab PO QID 09/30/18 05/24/20 [Carbidopa-Levodopa 25-100 Tab] Lidocaine Patch 5% [Lidoderm Patch] 1 ea TOP DAILY PRN 09/30/18 05/24/20 Naproxen Sodium 220 mg PO PRN 09/30/18 Loperamide [Imodium] 2 mg PO DAILY PRN 05/08/19 05/24/20 Extra Strength Tincture Cbd 1 drops PO DAILY PM PRN 06/10/19 04/04/20 Potassium Chloride 20 meq PO BID 06/10/19 05/24/20 Ketotifen Fumarate [Zaditor] 1 drops EACHEYE BID PRN 11/16/19 05/24/20 Carbidopa/Levodopa 1 tab PO QID 12/07/19 05/24/20 [Carbidopa-Levodopa 25-250 Tab] Diclofenac Sodium [Voltaren] 2 g TP TID PRN MDD right hand/left 01/27/20 05/24/20 elbow polyethylene glycoL 3350 [Miralax] 8.5 g PO Q48H 03/07/20 05/24/20 DULoxetine [Cymbalta] 20 mg PO DAILY 07/05/20 07/05/20 Rivastigmine [Exelon] 1.5 mg PO MDD daily x 7 days then 10/03/20 BID - Allergies Allergies/Adverse Reactions: Allergies Allergy/AdvReac Type Severity Reaction Status Date / Time latex Allergy Intermediate Hives Verified 09/26/18 11:31 adhesive tape Allergy Itching Verified 09/26/18 17:25 Review of Systems - Constitutional Constitutional: reports: Fatigue, Other (right MAC today 19.5cm; previous MAC 19.5cm-- stable). denies: Fever - Eyes Eyes: denies: Irritation - Ears, Nose & Throat Ears, Nose & Throat: reports: Hearing loss, Hearing aids, Dentures, Other (see HPI for mouthwash details) - Cardiovascular Cardiovascular: denies: Edema - Respiratory Respiratory: reports: Other (denies dysphagia during meals). denies: Cough - Gastrointestinal Gastrointestinal: reports: Constipation (controlled with bowel movement every 3- 4 days with use of miralax), Good appetite (requires assistance with meals). denies: Abdominal pain, Nausea, Vomiting - Genitourinary Genitourinary: reports: Incontinence. denies: Dysuria - Musculoskeletal Musculoskeletal: reports: Stiffness, Limited range of motion, Assistive devices, Transfer issues. denies: Joint pain - Integumentary Integumentary: denies: Pigment changes - Neurological Neurological: reports: General weakness, Memory problems - Psychiatric Psychiatric: reports: Hallucinations (seeing "evil spirits", see HPI). denies: Depression, Behavior disturbances - Endocrine Endocrine: reports: Other (reports coolness to extremities) - Hematologic/Lymphatic Hematologic/Lymph: reports: Other (No history of recurrent infections) - All Other Systems All Other Systems: reports: Reviewed and negative (daughter provides supplementation of ROS) Physical Exam - Vital Signs Temperature: 36.3 C Pulse Rate: 67 O2 Saturation: 98 (on RA) Blood Pressure: 110/60 (right arm) - Physical Exam General Appearance: positive: No acute distress, Alert, Other (sitting up in recliner, thin, frail and well groomed) Eyes Bilateral: positive: Normal inspection ENT: positive: No signs of dehydration, Other (b/l temporal wasting) Neck: positive: Trachea midline Cardiovascular: positive: Regular rate & rhythm Respiratory: positive: No respiratory distress, Breath sounds nml, Rales (fine, BLL, likely 2/2 atelectasis) Abdomen: positive: Non-tender, Soft, Nml bowel sounds. negative: Distended Skin: positive: Pallor Extremities: positive: No pedal edema, Other (Limited ROM left shoulder; contracture of left hand; b/l feet appear inverted with contracture) Neurologic/Psychiatric: positive: Disoriented to time (was unclear onthe year today which has not been her typical baseline), Weakness, Flat affect, Other (+Dysarthria and hypohonia--unable to project her voice; was not engaged in evaluation or conversation as has been her typical baseline during evaluations) Palliative Care - POLST Patient has POLST: Yes POLST Status: DNR, Selective Treatment Pain: No pain - Palliative Care Discussion: The patient is demonstrating further decline related to her Parkinson's disease evidenced by her inability to fully engage and participation during evaluation today and unable to project her voice with noted hypophonia. Given she continues to report "evil spirits" and was unclear regarding the year and time with increased frequency reported by the patient's daughter of having more bad days would benefit from introduction of Exelon 1.5 mg daily x1 week then i ncrease to 1.5 mg twice daily for cognitive impairment as well as control of hallucinations as a trial. Both the patient and daughter are open with trialing this and reviewed side effects such as bradycardia, diarrhea and hypotension with understanding verbalized. Given the patient has reduction of peripheral neuropathy symptoms will discontinue gabapentin and continue duloxetine for further support. Some concerns expressed today by the patient's daughter regarding leaving the patient for approximately 2 weeks to attend a much desired family reunion but having to leave the patient at a facility. Will have the patient's Part-time caregiver attend the patient at the facility and this [facility] plans to check-in to provideAnd oversight for the patient and daughter. Impression and Recommendations - Palliative Care Impression: This is a devika 85-year-old female with advanced Parkinson's disease with continued continued functional decline now demonstrating signs of cognitive impairments. Her right MAC remains stable at 19.57 m. Her peripheral neuropathy continues to be controlled and will discontinue her gabapentin and monitor her response. She has development of hallucinations and will initiate Exelon for symptom management for cognition as well as hallucinations and monitor her response. Palliative care will continue to provide support for symptom management, care coordination, anticipatory guidance with transition to hospice when medically appropriate. Recommendations/Counseling Done: 1. Peripheral neuropathy. Controlled. Discontinue gabapentin 300 mg at bedtime and monitor the patient's response. Continue duloxetine 20 mg daily. Would increase duloxetine if needed for symptom management. Continue to follow. 2. Hallucinations in the setting of Parkinson's disease and cognitive impairment. Initiate rivastigmine 1.5mg daily x 7 days then increase to 1.5mg BID for delusions, cognitive impairment and hallucinations. Discussed with the patient and daughter at length regarding side effects of medication such as bradycardia, hypotension and diarrhea with understanding verbalized and willing to trial the medication. Aware to contact palliative care if concerns regarding initiation. 3. Protein calorie malnutrition. Secondary to advanced Parkinson's disease. Continue to encourage snacks in between meals and offer items that the patient finds pleasurable. Right MAC remains stable at 19.5 cm today. Continue reduction off of pressure points. Continue to monitor. 4. Hypertension. No cardiac awareness. Reviewed blood pressure log taken by the patient's daughter. Continue to obtain blood pressure and heart rate weekly and record. Goal blood pressure is less than 150/90 given the patient's advanced age and comorbidities. Continue lisinopril, potassium supplementation and triamiterene/HCTZ as prescribed. Continue to evaluate dose reduction based o n patient's oral intake and blood pressure monitoring. Refill of lisinopril sent to [facility] per daughter's request. Continue to monitor. 5. Parkinson's disease. Advanced. Chronic. Progressive. Supportive care and fall precautions. Aspiration precautions. Continue carbidopa/levodopa as ordered. Patient is scheduled to transition to a new neurologist. Unclear if Botox injections provided benefit for the patient. Follow-up with neurology as scheduled. Continue to monitor. Total time spent 60 minutes with greater than 50% of the spent in counseling and coordination of care with the patient and daughter, Cara; discontinuation of gabapentin; initiation of Exelon with purpose, dose and side effects reviewed; examination of patient; review of symptom management and anticipatory guidance. Disclaimer: The chart note was formulated using voice recognition technology and unfortunately sound alike errors may occur.
== END 2020-09-28 13:41 | disposition home or self-care (01) ==
LOC: PC 13:40
PROVIDERS: ATTEND Nurse Practitioner Family
DX: Z51.5 Encounter for palliative care (principal); G62.9 Polyneuropathy, unspecified; R44.1 Visual hallucinations; E46 Unspecified protein-calorie malnutrition; I12.9 Hypertensive chronic kidney disease with stage 1 through stage 4 chronic kidney disease, or unspecified chronic kidney disease; N18.30 Chronic kidney disease, stage 3 unspecified; G20 Parkinson's disease; Z66 Do not resuscitate
CPT/HCPCS: 99350

== ENCOUNTER 2020-10-27 13:40 | Outpatient (CLI) | payer MEDICARE, OTHER ==
--- NOTE | 2020-10-27 17:02 | CONSULTATION NOTE ---
Palliative Care Follow Up - Referral Referring Provider: Jess Riojas PA-C Time of Visit: 1306-9023 Referral setting: Home Referral Reason: Parkinsons' Disease/Cognitive Impairment/Neuropathy - Information Sources Records reviewed: Previous records reviewed History/Review of Systems obtained from: Patient, Family (daughter, edgar) Exam limitations: Clinical condition (Dysarthria and hypophonia) - History of Present Illness Update Brief HPI Update: This is a devika 85-year-old female with advanced Parkinson's disease with dysarthria and hypophonia, peripheral neuropathy, failure to thrive with increased hallucination and short-term memory impairment that has recently been addressed seen in her home setting with her daughter, Edgar present On last evaluation the patient was not quite herself cognitively staring off into space and reporting increased hallucinations. She was initiated on Exelon 1.5 mg daily and now taking twice daily with some reduction in her hallucinations and she is returned to her baseline functional status. She also reports feeling little bit better cognitively. She does have some mild disorientation in the evenings that is able to be very directed poor the daughter's report. On last evaluation in September 2020 the patient was titrated and tapered off gabapentin and after this was discontinued the patient was reporting increased discomfort and then her duloxetine was increased from 20 mg to 30 mg with improvement. The daughter reports that it took about approximately 1 week for the patient to settle with a dose adjustment and return to her baseline function. In the last month, the patient's daughter has been pureing the majority of her food as she was noting even with mincing things finely especially meats, that bits were remaining in the patient's buccal pockets. No reports of dysphagia or choking episodes. When the patient was having foods just minced it required extensive mastication. The patient's bowel movements are also more regular since initiating Exelon. The patient is going to be having a respite stay at the end this month at [facility] and has transferred providers from Dr. Kirkland to [facility]. [facility] is assured the family that they will be able to care for her during her 2-week respite stay and the patient's private caregiver will be coming to attend the patient as well during her stay there. Patient has noticed in the evenings watching TV that she is "seeing stars." She denies any flashes of light or floaters. It has been several years since her eyes have last been evaluated. She has had a history of cataract extraction. If she looks away and then looks back of the TV she will still see that the "stars." This is only a new development that she is reported to her daughter. Patient is seen sitting up out of bed in her recliner. No evidence of acute distress. Engaged and articulate this afternoon and back to her usual self as indicative of prior evaluations. Past Medical History: Patient has a past medical history of Parkinson's disease, osteoporosis, C. di fficile, hypertension, hyperlipidemia, depression, anxiety, chronic diarrhea, CKD stage III, GERD, TIA, meningioma of the brain, history of fracture of the left inferior pubis ramus, history of fracture of the humerus, femur and scapula, peripheral neuropathy, cognitive impairment. Social History - Living Situation Living arrangement: At home Living Situation: With family (Daughter Edgar and her partner, Fili) Support System: Patient relocated [facility] for additional caregiving services. Her daughter, Edgar is her main caregiver. They have a caregiver through [facility] who comes 4 hours on Tuesdays that is provided through the [facility] and they have hired her privately to be present for a few hours on Fridays. They have a disability case manager through [facility], Helga. The patient's daughter is going to a family reunion for approximately 2 weeks and the patient will have respite stay at [facility] assisted living and the patient's private caregiver will be coming into the facility to assist the patient as well. The patient's daughter feels confident and the decision to have switched Primary care providers to [facility] as this provider goes on site to the facility and will be able to handle handle any medical concerns of the patient. Reassurance provided to the patient regarding her need for Covid19 testing to decrease her anxiety prior to her admission to [facility]. Medications/Allergies - Medications Home Medications: Ambulatory Orders Medication Instructions Recorded Confirmed Triamterene/Hydrochlorothiazid 1 each PO DAILY 06/21/17 05/24/20 [Triamterene-Hctz 37.5-25 mg Cp] Acetaminophen [Tylenol] 650 mg PO Q6H PRN #30 tab 06/23/17 05/24/20 lisinopriL [Lisinopril] 10 mg PO DAILY #30 tablet 06/23/17 05/24/20 Omeprazole 20 mg PO DAILY 09/26/18 05/24/20 Carbidopa/Levodopa 0.5 tab PO QID 09/30/18 05/24/20 [Carbidopa-Levodopa 25-100 Tab] Lidocaine Patch 5% [Lidoderm Patch] 1 ea TOP DAILY PRN 09/30/18 05/24/20 Naproxen Sodium 220 mg PO PRN 09/30/18 Loperamide [Imodium] 2 mg PO DAILY PRN 05/08/19 05/24/20 Extra Strength Tincture Cbd 1 drops PO DAILY PM PRN 06/10/19 04/04/20 Potassium Chloride 20 meq PO BID 06/10/19 05/24/20 Carbidopa/Levodopa 1 tab PO QID 12/07/19 05/24/20 [Carbidopa-Levodopa 25-250 Tab] Diclofenac Sodium [Voltaren] 2 g TP TID PRN MDD right hand/left 01/27/20 05/24/20 elbow polyethylene glycoL 3350 [Miralax] 8.5 g PO Q48H 03/07/20 05/24/20 DULoxetine [Cymbalta] 30 mg PO DAILY 07/05/20 07/05/20 Rivastigmine [Exelon] 1.5 mg PO BID 10/03/20 - Allergies Allergies/Adverse Reactions: Allergies Allergy/AdvReac Type Severity Reaction Status Date / Time latex Allergy Intermediate Hives Verified 09/26/18 11:31 adhesive tape Allergy Itching Verified 09/26/18 17:25 Review of Systems - Constitutional Constitutional: reports: Other (right MAC today 19.5cm; previous MAC 19.5cm 09/28/2020). denies: Fever - Eyes Eyes: reports: Other ("seeing stars"when looking at the TV noted inthelast few weeks). denies: Vision loss, Corrective lenses - Ears, Nose & Throat Ears, Nose & Throat: reports: Hearing loss, Hearing aids, Dentures - Cardiovascular Cardiovascular: denies: Edema - Respiratory Respiratory: reports: Other (denies dysphagia during meals, food is now puree'd). denies: Cough - Gastrointestinal Gastrointestinal: reports: Constipation (controlled with bowel movement and more regular), Good appetite (requires assistance with meals). denies: Nausea, Vomiting - Genitourinary Genitourinary: reports: Incontinence. denies: Dysuria - Musculoskeletal Musculoskeletal: reports: Stiffness, Limited range of motion, Assistive devices, Transfer issues - Integumentary Integumentary: denies: Pigment changes - Neurological Neurological: reports: General weakness, Memory problems - Psychiatric Psychiatric: reports: Hallucinations (seeing "evil spirits" at night has reduced with induction of Exelon). denies: Depression, Behavior disturbances - Endocrine Endocrine: denies: Diabetes type 2 - Hematologic/Lymphatic Hematologic/Lymph: reports: Other (No history of recurrent infections) - All Other Systems All Other Systems: reports: Reviewed and negative (daughter provides supplementation of ROS) Physical Exam - Vital Signs Pulse Rate: 67 O2 Saturation: 97 (on RA) Blood Pressure: 137/61 - Physical Exam General Appearance: positive: No acute distress, Alert, Other (sitting up in recliner, thin, frail and well groomed) Eyes Bilateral: positive: Normal inspection ENT: positive: No signs of dehydration, Other (b/l temporal wasting; +upper d enture; dry, dark cerumen to right ear canal at 9 oclock removed with lightted currette and otoscope with TM intact; left ear canal without cerumen and TM intact.) Neck: positive: Trachea midline Cardiovascular: positive: Regular rate & rhythm Respiratory: positive: No respiratory distress, Breath sounds nml Abdomen: positive: Non-tender, Soft, Nml bowel sounds. negative: Distended Skin: positive: Pallor Extremities: positive: No pedal edema, Other (Limited ROM left shoulder; contracture of left hand; b/l feet appear inverted with contracture) Neurologic/Psychiatric: positive: Oriented x3 (mild STM impairment), Weakness, Flat affect, Other (+Dysarthria and hypohonia, able to project her voice today) Palliative Care - POLST Patient has POLST: Yes POLST Status: DNR, Selective Treatment Pain: No pain (neuropathy controlled with duloxetine) Constipation: Yes, Managed Performance Status: Patient is nonambulatory. She requires assistance with meals. She is a one person transfer and has of bed to recliner chair existence. Her food is now pured. No dysphagia during meals. No recent falls. - Palliative Care Discussion: The patient continues to demonstrate slow, progressive decline due to her Parki nson's disease evidenced by the fact that she now requires her food to be pured and oversight and assistance however, there is no evidence of dysphagia during mealtime. Her hallucinations have improved with initiation of exelon 1.5mg BID and at this time with continue as it reduces symptom burden and she has had a positive response. Highlighted today for the patient and daughter that Parkinson's disease is a progressive course and is not unexpected that the patient is now requiring to have her food pured pured and her increased time spent due to mastication and needing this transition. The patient's neuropathy is presently controlled with duloxetine 30 mg daily and discontinuation of gabapentin. Impression and Recommendations - Palliative Care Impression: This is a devika 85-year-old female with advanced Parkinson's disease with slow, functional decline with recent signs of cognitive impairment. She has tolerated initiation of Exelon for assistance with her cognitive impairment as well as her hallucinations. She is no longer on gabapentin and the dose increase of her duloxetine is managing her symptoms of peripheral neuropathy. Palliative care will continue to provide support for symptom management, care coordination, anticipatory guidance with transition to hospice when medically appropriate. Recommendations/Counseling Done: 1. Excess cerumen, right ear canal. Excess, dry cerumen removed from right ear canal with a lighted curette and otoscope with the patient tolerating the procedure well. TM visualized and intact. Patient is at risk for future development of excess cerumen due to her wearing hearing aids. 2. Peripheral neuropathy. Controlled. Continue duloxetine 30 mg daily. Continue to monitor. 3. Hallucinations in the setting of Parkinson's disease and cognitive impairment. Has tolerated transition of Exelon 1.5 mg twice daily for delusions, cognitive impairment and hallucinations. No evidence of bradycardia. We will continue Exelon and at the present time and monitor the patient's symptoms. 4. Visual disturbance. Unclear if this could be some underlying macular degeneration versus the patient's underlying Parkinson's disease. Patient's daughter plans on making an appointment for an eye examination in the near future for evaluation. Red flags reviewed with the patient and daughter that would warrant acute evaluation such as flashes of light, decreased vision, and ocular pain. The patient is not having any red flag symptoms. 5. Protein calorie malnutrition. Secondary to Parkinson's disease. Continue to encourage snacks in between meals and offer items that the patient finds pleasurable. Right MAC remains stable at 19.5 cm today. Continue to monitor. 6. Parkinson's disease. Advanced. Chronic. Progressive. Supportive care and fall precautions. Aspiration precautions. Patient's daughter has now moved food to being pured with no evidence of dysphagia. Continue carbidopa/levodopa as ordered. Follow-up with neurology as scheduled. Continue to monitor. Total time spent 50 minutes with greater than 50% of this spent in counseling and coordination of care with patient and daughter, Edgar; review of progression of Parkinsons' disease; review of pain and symptom management and anticipatory guidance. Disclaimer: The chart note was formulated using voice recognition technology and unfortunately sound alike errors may occur.
== END 2020-10-27 13:41 | disposition home or self-care (01) ==
LOC: PC 13:40
PROVIDERS: ATTEND Nurse Practitioner Family
DX: Z51.5 Encounter for palliative care (principal); H61.21 Impacted cerumen, right ear; G62.9 Polyneuropathy, unspecified; R44.1 Visual hallucinations; G20 Parkinson's disease; H53.8 Other visual disturbances; E46 Unspecified protein-calorie malnutrition; Z66 Do not resuscitate
CPT/HCPCS: 99349

== ENCOUNTER 2020-11-29 13:45 | Outpatient (CLI) | payer MEDICARE, OTHER ==
--- NOTE | 2020-11-29 19:16 | CONSULTATION NOTE ---
Palliative Care Follow Up - Referral Referring Provider: Jess Riojas PA-C Time of Visit: 4977-8266 Referral setting: Home Referral Reason: Parkinson's Disease/Hallucinations - Information Sources Records reviewed: Previous records reviewed History/Review of Systems obtained from: Patient, Family (daughter/CHARLEY Marroquin) Exam limitations: Clinical condition (dysarthria and hypophonia) - History of Present Illness Update Brief HPI Update: This is a devika 85-year-old female with advanced Parkinson's disease with dysarthria and hypophonia, peripheral neuropathy, failure to thrive with history of hallucinations and short-term memory impairment seen in her home setting with her daughter/DPOA, Cara present. The patient recently had a respite stay at a local assisted living that resulted in the need for family members to be present to assist in the caregiving needs of the patient while at the facility when the patient's primary caregiver/CHARLEY Marroquin was out of town attending a family event. Unfortunately, the patient developed oral thrush during that time resulting in administration of nystatin suspension with resolution of the oral thrush likely due to some underlying stress. The patient is no longer reporting hallucinations with seeing people in the evenings per both her report as well as her daughters. She remains on Exelon 1.5 mg twice daily for hallucinations as well as her underlying cognitive impairment. While the patient was having a respite at the local assisted living facility earlier this month her 1 daughter while transferring her reported she heard a "pop" to the patient's left thumb. Her daughter, Cara reported some initial discoloration that has subsequently resolved. It is difficult to assess the patient's range of motion given her underlying Parkinson's disease and also noted contractures. There is no visible swelling to either patient's thumbs on evaluation today. Since returning from the local assisted living the patient has been complaining of generalized upper back pain that does not radiate. She reports that the pain is fairly persistent and will typically be sharp and she describes as "nagging." The patient's daughter has tried administering acetaminophen, Aleve, and CBD with out positive effect. The patient denies any improvement with position changes. She denies any known injury to the site. Last evaluation she was reporting visual disturbances while watching TV that resulted in an evaluation with the mine safety manager. During that evaluation it was noted that her macular degeneration appears to be stable and no evidence was found to cause the patient's report of seeing "stars" while looking at the television. She has not had any return of the symptoms per her report as well as her daughters. It was recommended that she also could take Ocuvite however, due to the patient's difficulty with swallowing and this was not a suggestion that the patient nor her daughter wish to move forward with. The patient's daughter has noted that the patient herself has been a bit more stiff in the morning but this typically works out. Is also noted that since returning back from her respite stay a bit more agitated likely due to her underlying discomfort. The patient is seen sitting up out of bed in her recliner. No evidence of acute dress. She is engaged and articulate. Past Medical History: Patient has a past medical history of Parkinson's disease, osteoporosis, C. difficile, hypertension, hyperlipidemia, depression, anxiety, chronic diarrhea, CKD stage III, GERD, TIA, meningioma of the brain, history of fracture of the left inferior pubis ramus, history of fracture of the humerus, femur and scapul a, peripheral neuropathy, cognitive impairment. Social History - Living Situation Living arrangement: At home Living Situation: With family (Daughter Cara and her partner, Fili) Support System: Patient relocated [facility] for additional caregiving services. Her daught erCara is her main caregiver. They have a caregiver through [facility] who comes 4 hours on Tuesdays that is provided through the [facility] and they have hired her privately to be present for a few hours on Fridays. [facility] The patient stayed at an assisted living on the [place] who could not fully meet the patient's needs during a respite and moving forward will likely need to go off [facility] for a respite and the daughter recognizes this potential. The patient's two great grandchildren our presently visiting and staying within the home. Medications/Allergies - Medications Home Medications: Ambulatory Orders Medication Instructions Recorded Confirmed Triamterene/Hydrochlorothiazid 1 each PO DAILY 06/21/17 05/24/20 [Triamterene-Hctz 37.5-25 mg Cp] Acetaminophen [Tylenol] 650 mg PO Q6H PRN #30 tab 06/23/17 05/24/20 lisinopriL [Lisinopril] 10 mg PO DAILY #30 tablet 06/23/17 05/24/20 Omeprazole 20 mg PO DAILY 09/26/18 05/24/20 Carbidopa/Levodopa 0.5 tab PO QID 09/30/18 05/24/20 [Carbidopa-Levodopa 25-100 Tab] Lidocaine Patch 5% [Lidoderm Patch] 1 ea TOP DAILY PRN 09/30/18 05/24/20 Naproxen Sodium 220 mg PO PRN 09/30/18 Loperamide [Imodium] 2 mg PO DAILY PRN 05/08/19 05/24/20 Extra Strength Tincture Cbd 1 drops PO DAILY PM PRN 06/10/19 04/04/20 Potassium Chloride 20 meq PO BID 06/10/19 05/24/20 Carbidopa/Levodopa 1 tab PO QID 12/07/19 05/24/20 [Carbidopa-Levodopa 25-250 Tab] Diclofenac Sodium [Voltaren] 2 g TP TID PRN MDD right hand/left 01/27/20 05/24/20 elbow polyethylene glycoL 3350 [Miralax] 8.5 g PO Q48H 03/07/20 05/24/20 DULoxetine [Cymbalta] 30 mg PO DAILY 07/05/20 07/05/20 Rivastigmine [Exelon] 1.5 mg PO BID 10/03/20 HYDROcod/ACETAM 5/325 [[place] 5/325] 0.5 tab PO Q4H PRN MDD NTE 3gram 11/29/20 11/29/20 of tylenol in 24h - Allergies Allergies/Adverse Reactions: Allergies Allergy/AdvReac Type Severity Reaction Status Date / Time latex Allergy Intermediate Hives Verified 09/26/18 11:31 adhesive tape Allergy Itching Verified 09/26/18 17:25 Review of Systems - Constitutional Constitutional: reports: Other (right MAC today 19cm 11/29/2020; previous MAC 19.5cm 09/28/2020). denies: Fever - Eyes Eyes: denies: Blurred vision, Corrective lenses - Ears, Nose & Throat Ears, Nose & Throat: reports: Hearing loss, Hearing aids, Dentures. denies: Mouth lesions - Cardiovascular Cardiovascular: denies: Chest pain, Edema - Respiratory Respiratory: reports: Other (denies dysphagia during meals, food is puree'd). denies: Cough - Gastrointestinal Gastrointestinal: reports: Constipation (daughter reports bowel movement on average once a week and giving mirlax typically every 3-4 days.), Good appetite (requires assistance with meals). denies: Nausea, Vomiting - Genitourinary Genitourinary: reports: Incontinence. denies: Dysuria - Musculoskeletal Musculoskeletal: reports: Back pain (see HPI), Stiffness, Limited range of motion, Assistive devices, Transfer issues - Integumentary Integumentary: reports: Other (skin tear left huynh, resolving) - Neurological Neurological: reports: General weakness, Memory problems - Psychiatric Psychiatric: reports: Hallucinations (seeing "evil spirits" is denied presently and is on Exelon). denies: Depression, Behavior disturbances - Endocrine Endocrine: denies: Diabetes type 2 - Hematologic/Lymphatic Hematologic/Lymph: reports: Other (No history of recurrent infections) - All Other Systems All Other Systems: reports: Reviewed and negative (daughter provides supplementation of ROS) Physical Exam - Vital Signs Temperature: 36.2 C Pulse Rate: 67 O2 Saturation: 97 (on RA) Blood Pressure: 140/73 (right wrist) - Physical Exam General Appearance: positive: No acute distress, Alert, Other (sitting up in recliner, thin, frail and well groomed) Eyes Bilateral: positive: Normal inspection ENT: positive: No signs of dehydration, Other (b/l temporal wasting; +upper denture;resolution of oral thrush--non visible) Neck: positive: Trachea midline Cardiovascular: positive: Regular rate & rhythm Respiratory: positive: No respiratory distress, Breath sounds nml, Diminished in bases Abdomen: positive: Non-tender, Soft, Nml bowel sounds. negative: Distended Skin: positive: Other (Appx 1cm skin tear in length x 2 to left huynh with edges well approximated, scab formation without erythema or discharge to indicate s/s of infection) Extremities: positive: Non-tender (Spine nontender to palpation but reports pain to mid-thoracic spine), No pedal edema, Other (Limited ROM left shoulder; contracture of left hand; b/l feet appear inverted with contracture; +DJD changes to b/l hands; PIP, DIP and MCP joints without warmth, edema or tenderness to palpation on right and left thumbs. Left thumb with some noted crepitus to MCP.) Neurologic/Psychiatric: positive: Oriented x3 (mild STM impairment), Weakness, Flat affect, Other (+Dysarthria and hypohonia) Palliative Care - POLST Patient has POLST: Yes POLST Status: DNR, Selective Treatment Pain: Pain worsening (Pain to mid-thoracic spine) Nausea: None Anorexia: Mild (1-3) Dyspnea: None Constipation: Intermittent constipation - Palliative Care Discussion: The patient is newly reporting midthoracic pain from her respite stay for 2 weeks at a local facility. Position changes do not appear to be effective. She is also not adequately responded to [id number] acetaminophen or Aleve. Likely musculoskeletal in nature and would benefit from addition of hydrocodone/acetaminophen 5 mg / 325 mg half a tablet every 4 hours as needed for pain. The patient is open to trialing opioid therapy to improve her pain management as is the daughter. Patient is displaying increased signs and symptoms of constipation. Discussed with the patient's daughter goal is to have a bowel movement 2-3 times per week. Requested that the MiraLAX be bumped up to every 2 to 3 days to achieve a bowel movement. The patient continues to have a slow, progressive decline due to her Parkinson's disease and unfortunately demonstrated loss of right MAC today from 19.5 to 19 cm. She is requiring assistance with meals her filler she reports offer her items that she is interested in that are now being pured. Impression and Recommendations - Palliative Care Impression: This is a devika 85-year-old female with advanced Parkinson's disease with slow, progressive functional decline with cognitive impairment. She is having increased symptoms of constipation and would benefit from increase in MiraLAX administration for more to routine bowel movements. She is also expressing midthoracic spine pain and will trial hydrocodone/acetaminophen as noted below for pain management as [id number] oral medications have not been effective. Palliative care will continue to provide support for symptom management, explore goals of care, care coordination, anticipatory guidance with transition to hospice when medically appropriate. Recommendations/Counseling Done: 1. Mid thoracic back pain. Nontender to palpation. Has been persistent since her respite stay at a local facility. Patient denies any known injury. [id number] Aleve and acetaminophen have not been effective nor has CBD. Discussed with patient and daughter trial use of hydrocodone/acetaminophen 5 mg / 325 mg taking to half half a tablet every 4 hours as needed for pain if not effective in 1 hour may take an additional half. Patient is open to trialing the medication to more adequately manage her pain which is likely musculoskeletal in nature I would expect to gradually improve.Daughter aware to contact palliative care if symptoms do not improve and persist. 2. Protein calorie malnutrition. Secondary to Parkinson's disease. Continue to encourage snacks in between meals and offer items that the patient finds pleasurable. Is on a pured diet due to textures. Right MAC decreased to 19 cm. Continue to follow. 3. Constipation. Sedentary lifestyle contributing.Goal is to achieve a bowel movement 2-3 times per week. Increase MiraLAX to 1 cap every 2 to 3 days to achieve goal. Patient and daughter are aware with initiation of hydrocodone/acetaminophen that this is constipating and aware to monitor and maintain a bowel regimen. 4. Macular degeneration. Status post ophthalmology appointment. Due to difficulty with administration the patient will not be administered Ocuvite. Provide supportive measures. 5. Hallucinations in the setting of Parkinson's disease and cognitive impairment. Has tolerated transition to Exelon 1.5 mg twice daily for hallucinations, cognitive impairment. No evidence of bradycardia. We will continue Exelon and monitor the patient's symptoms and response. 6. Left thumb complaint. No evidence of present injury on evaluation. Patient reports pain has resolved. Potential for a thumb sprain during a transfer. Family to remain diligent in regards to transferring to avoid any injury. Total time spent 45 minutes with greater than 50% of the spent in counseling coordination of care with the patient and daughter/Cara WHITEHEAD; supportive listening; examination the patient; review of pain and symptom management as well as anticipatory guidance. Disclaimer: The chart note was formulated using voice recognition technology and unfortunately sound alike errors may occur.
== END 2020-11-29 13:46 | disposition home or self-care (01) ==
LOC: PC 13:45
PROVIDERS: ATTEND Nurse Practitioner Family
DX: Z51.5 Encounter for palliative care (principal); M54.6 Pain in thoracic spine; E46 Unspecified protein-calorie malnutrition; K59.00 Constipation, unspecified; G20 Parkinson's disease; H35.30 Unspecified macular degeneration; R44.3 Hallucinations, unspecified; Z66 Do not resuscitate
CPT/HCPCS: 99349

== ENCOUNTER 2021-01-10 12:00 | Outpatient (CLI) | payer MEDICARE, OTHER ==
--- NOTE | 2021-01-10 20:09 | CONSULTATION NOTE ---
Palliative Care Follow Up - Referral Referring Provider: Jess Riojas PA-C Time of Visit: [id number] Referral setting: Home Referral Reason: Parkinson's Disease/Dementia/Chestwall pain - Information Sources Records reviewed: Previous records reviewed History/Review of Systems obtained from: Patient, Family (daughter/CHARLEY Marroquin) Exam limitations: Clinical condition (dysarthria, STM impairment, hypophonia) - History of Present Illness Update Brief HPI Update: This is a devika 85-year-old female with advanced Parkinson's disease with dysarthria, hypophonia, peripheral neuropathy, failure to thrive, dementia, history of hallucinations now with reported chest wall pain. She is seen within her home setting in her hospital bed with her daughter/CHARLEY Marroquin present. The patient has a longstanding history of Parkinson's disease that has been progressing. She recently saw Emily Thomas and due to her hallucinations was advised to have obtainment of vitamin B12 for possible cause however, no request for obtainment has been made to the Palliative Care office at this time. The patient's daughter reports that her hallucinations have been approximately the same she remains on Exelon 1.5 mg twice daily for hallucinations as well as her underlying cognitive impairment. However, delusions have increased per the daughter's report. Her daughter reports that going to the neurologist this last time for a trip to [place] is getting increasingly difficult to get the patient in and out of the car. She has a pending appointment with a movement specialist in 3 months for Botox injections. Her carbidopa/levodopa dosages have been adjusted by the neurologist. Saturday evening, the patient's son and [id number] were transferring the patient to her hospital bed when the patient cried out and next significant pain to her chest and her [id number] noted that she felt something happen in the chest but unclear what. The patient's daughter since Saturday has been administering hydrocodone/acetaminophen 5 mg / 325 mg half a tablet approximately 4 times per day providing significant improvement to the patient's pain. The patient is reporting pain in her mid chest. She denies it radiating. She is unable to clarify if it is sharp or shooting. If her lower legs elevate then it causes pain in her chest. It also is causing pain with turning and providing care within the hospital bed. At times she has been more comfortable lying flat. They have utilized a heating pad that has also been helpful. The discomfort to the chest has improved since Saturday evening but remains. Neurology had made a recommendation for Thick-It however, the patient's daughter has not followed through on this recommendation as the patient's dysphagia is intermittent and in proved with modifications to her diet that are essentially pured. The patient continues to desire foods that she is no longer able to masticate and swallow. The patient has a history of hypertension and her antihypertensives have gradually been decreased. Upon review of her blood pressure log her blood pressures have been as follows 123/71, 118/71, 127/72, 126/70, 122/69. Therefore, would be appropriate to further reduce her antihypertensive medication to reduce the risk of hypotension given the patient's gradual decline and failure to thrive. The patient is seen resting in her hospital bed well groomed after having a bed bath from her aide this morning. However, she is not as engaged or alert as she has been on previous occasions. Social History - Living Situation Living arrangement: At home Living Situation: With family (Daughter Cara and her partner, Fili) Medications/Allergies - Medications Home Medications: Ambulatory Orders Medication Instructions Recorded Confirmed Triamterene/Hydrochlorothiazid 1 each PO DAILY 06/21/17 05/24/20 [Triamterene-Hctz 37.5-25 mg Cp] Acetaminophen [Tylenol] 650 mg PO Q6H PRN #30 tab 06/23/17 05/24/20 Omeprazole 20 mg PO DAILY 09/26/18 05/24/20 Carbidopa/Levodopa 1 tab PO QID PRN 09/30/18 05/24/20 [Carbidopa-Levodopa 25-100 Tab] Lidocaine Patch 5% [Lidoderm Patch] 1 ea TOP DAILY PRN 09/30/18 05/24/20 Naproxen Sodium 220 mg PO PRN 09/30/18 Loperamide [Imodium] 2 mg PO DAILY PRN 05/08/19 05/24/20 Extra Strength Tincture Cbd 1 drops PO DAILY PM PRN 06/10/19 04/04/20 Potassium Chloride 20 meq PO BID 06/10/19 05/24/20 Carbidopa/Levodopa 1 tab PO QID 12/07/19 05/24/20 [Carbidopa-Levodopa 25-250 Tab] Diclofenac Sodium [Voltaren] 2 g TP TID PRN MDD right hand/left 01/27/20 05/24/20 elbow polyethylene glycoL 3350 [Miralax] 8.5 g PO Q48H 03/07/20 05/24/20 DULoxetine [Cymbalta] 30 mg PO DAILY 07/05/20 07/05/20 Rivastigmine [Exelon] 1.5 mg PO BID 10/03/20 HYDROcod/ACETAM 5/325 [[place] 5/325] 0.5 tab PO Q4H PRN MDD NTE 3gram 11/29/20 11/29/20 of tylenol in 24h Carbidopa/Levodopa 25/100 [Sinemet 1 tab PO DAILY MDD Oral 01/11/21 01/11/21 25 mg/100 mg] disinegrating lisinopriL [Lisinopril] 5 mg PO DAILY 01/11/21 - Allergies Allergies/Adverse Reactions: Allergies Allergy/AdvReac Type Severity Reaction Status Date / Time latex Allergy Intermediate Hives Verified 09/26/18 11:31 adhesive tape Allergy Itching Verified 09/26/18 17:25 Review of Systems - Constitutional Constitutional: reports: Other (right MAC 19cm 11/29/2020; previous MAC 19.5cm 09/28/2020). denies: Fever - Eyes Eyes: denies: Blurred vision - Ears, Nose & Throat Ears, Nose & Throat: reports: Hearing loss, Hearing aids, Dentures - Cardiovascular Cardiovascular: reports: Chest pain (chest wall pain with movement or palpation). denies: Edema - Respiratory Respiratory: reports: Other (denies dysphagia during meals, food is puree'd, see HPI). denies: Cough, Wheezing, SOB at rest - Gastrointestinal Gastrointestinal: reports: Constipation (recently has had bowel movements daily with last miralax administration yesterday), Good appetite (requires assistance with meals). denies: Nausea, Vomiting - Genitourinary Genitourinary: reports: Incontinence. denies: Dysuria - Musculoskeletal Musculoskeletal: reports: Back pain (improved with use of hydrocodone/acetaminophen initiation), Stiffness, Limited range of motion, Assistive devices, Transfer issues - Integumentary Integumentary: reports: Other (bruises easily) - Neurological Neurological: reports: General weakness, Memory problems - Psychiatric Psychiatric: reports: Delusions, Hallucinations (on exolon). denies: Depression, Behavior disturbances - Endocrine Endocrine: denies: Diabetes type 2 - Hematologic/Lymphatic Hematologic/Lymph: reports: Other (No history of recurrent infections) - All Other Systems All Other Systems: reports: Reviewed and negative (daughter provides supplem entation of ROS) Physical Exam - Vital Signs Temperature: 36.4 C Pulse Rate: 79 O2 Saturation: 96 (on RA) Blood Pressure: 108/60 (left arm) - Physical Exam General Appearance: positive: No acute distress, Alert, Other (resting in bed thin, frail and well groomed) Eyes Bilateral: positive: Normal inspection ENT: positive: No signs of dehydration, Other (b/l temporal wasting; +upper dentures) Neck: positive: Trachea midline Cardiovascular: positive: Regular rate & rhythm Respiratory: positive: No respiratory distress, Breath sounds nml, Diminished in bases. negative: Chest non-tender (sternum tender to palpation), Rales Abdomen: positive: Non-tender, Soft, Nml bowel sounds. negative: Distended Skin: positive: Other (Appx 1cm skin tear in length x 2 to left huynh with edges well approximated, scab formation without erythema or discharge to indicate s/s of infection) Extremities: positive: No pedal edema, Other (Limited ROM left shoulder; contracture of left hand; b/l feet appear inverted with contracture; +DJD changes to b/l hands) Neurologic/Psychiatric: positive: Oriented x3 (mild STM impairment, less engaged today), Weakness, Flat affect, Other (+Dysarthria and hypohonia) Palliative Care - POLST Patient has POLST: Yes POLST Status: DNR, Selective Treatment Pain: Comment (pain to sternum that began saturday evening and controlled with hydrocodone/acetaminophen administration) Anorexia: Mild (1-3) Dyspnea: None Sleep: Sleeps well Constipation: Managed - Palliative Care Discussion: Patient developed acute sternal pain after transfer to her bed on Saturday evening. She has responded well to administration of hydrocodone/immediate Aminofen 5 mg / 325 mg half a tablet averaging approximately two whole pills per day per daughter's report. Given the patient's frailty and history of osteoporosis possible underlying muscular skeletal concern for spontaneous fracture of the sternum. Lengthy discussion with patient and daughter and as it would be a taxing and difficult process to have the patient leave the home for obtainment of imaging that would not alter the treatment plan in agreement to initiate scheduled hydrocodone/acetaminophen 5 mg / 325 mg half a tablet four times daily on a scheduled routine and bumping up the patient's MiraLAX for bowel regimen to be administered half a cap every other day with a goal of having a soft bowel movement every other day is in agreement. She is also to continue as needed hydrocodone/acetaminophen new Rx was sent to the pharmacy for this. The patient has responded well to the opiate therapy. The patient's daughter recognizes that the patient has been displaying signs and symptoms of further decline revolving around her memory and increased report of delusions. We will reach out to the patient's neurologist regarding obtainment of any desired lab work at the daughter's request. Given the patient's continued decline cognitively as well as failure to thrive reintroduced hospice and its role today and will continue to have an open discussion as the patient continues to gradually decline as progression of her disease course. Impression and Recommendations - Palliative Care Impression: This is a devika 85-year-old female with advanced Parkinson's disease with slow, progressive functional decline with cognitive impairment. She is having acute sternal pain after a recent transfer and would benefit from routine opioid therapy for comfort. She has had recent adjustments of her carbidopa/levodopa scheduling to reduce rigid symptoms and stiffness. Her blood pressure continues to be well controlled and given her continued functional decline would benefit from further dose reduction of her antihypertensive medications and will reduce her lisinopril from 10 mg to 5 mg daily. Palliative care will continue to provide support for symptom management, exploration regarding goals of care, care coordination, anticipatory guidance with transition to hospice when medically appropriate. Recommendations/Counseling Done: 1. Sternal pain, acute. In the setting of osteoporosis and frailty. Patient and daughter decline imaging. Discussed potential for sternal fracture given the patient's underlying history of osteoporosis and will manage with control of pain. Initiate hydrocodone 5 mg/acetaminophen 325 mg take half a tablet scheduled four times daily evenly spaced throughout the day. If the patient requires any additional management of her pain she may take hydrocodone/acetaminophen 5 mg / 225 mg half a tablet every 4 hours as needed for pain not to exceed 3 g of acetaminophen in 24 hours total and daughter is aware. Discussed encouragement of the patient coughing and deep breathing during this recovery and discussed length of time for potential recovery with questions answered and addressed. Advised if any worsening pain that is not controlled with hydrocodone/acetaminophen may report to the emergency department for further evaluation and work-up and daughter in agreement. 2. Delusions and hallucinations in the setting of Parkinson's disease and cognitive impairment. Daughter reported a hallucinations are stable but increased delusions. We will follow-up with patient's neurologist regarding question of lab work obtainment of vitamin B12 and if desired to send lab request and will coordinate on next evaluation if desired. Patient continues on Exelon 1.5 mg twice daily for hallucinations and cognitive impairment. No evidence of bradycardia. 3. Constipation. Sedentary lifestyle contributing. Goal is to have a bowel movement every other day. Given the increase in opioid therapy for management of the patient's acute sternal pain will increase MiraLAX One tab every other day and daughter aware to monitor her bowel regimen. 4. Protein calorie malnutrition. Secondary to Parkinson's disease. Continue to encourage snacks in between meals and other items the patient finds pleasurable. Continues on pured diet for potential dysphagia. Patient's daughter aware of risk of dysphagia and potential aspiration pneumonia and at the present time patient is not having increased difficulty with liquids and will not transition to Thick-It at the present time. 5.Hypertension. No cardiac awareness. Reviewed patient's blood pressure log taken by the patient's daughter. Continue to obtain blood pressure and heart rate weekly and record. Goal blood pressure is less than 150/90 given the patient's advanced age and comorbidities. Reduce lisinopril to 5 mg daily new Rx sent to pharmacy. Continue potassium supplementation and to Alexys/HCTZ as prescribed. Continue to evaluate dose reduction based on the patient's oral intake and blood pressure monitoring. Discussed not unexpected given the patient's underlying Parkinson's disease that she may experience autonomic dysfunction. 6. Parkinson's disease. Advanced. Chronic. Progressive. Supportive care and fall precautions. Aspiration precautions. Continue carbidopa/levodopa as ordered by neurology. To follow-up in 3 months with movement specialist for possible Botox injections. Patient's daughter continues to know slow, gradual decline. Follow-up with neurology as scheduled and monitor benefits versus burdens as becoming increasingly difficult for the patient to leave her home environment for follow-up. Continue to monitor. Total time spent 60 minutes with greater 50% was spent in counseling coronation of care with the patient and daughter, Cara; review of progression of Parkinson's disease; review of blood pressure log; review of acute sternal pain and pain management as well as part of potential differential diagnoses; review of pain and symptom management and anticipatory guidance. Disclaimer: The chart note was formulated using voice recognition technology and unfortunately sound alike errors may occur.
== END 2021-01-10 12:01 | disposition home or self-care (01) ==
LOC: PC 12:00
PROVIDERS: ATTEND Nurse Practitioner Family
DX: Z51.5 Encounter for palliative care (principal); R07.89 Other chest pain; M81.0 Age-related osteoporosis without current pathological fracture; G20 Parkinson's disease; F22 Delusional disorders; R41.9 Unspecified symptoms and signs involving cognitive functions and awareness; K59.00 Constipation, unspecified; E46 Unspecified protein-calorie malnutrition; I10 Essential (primary) hypertension; Z66 Do not resuscitate
CPT/HCPCS: 99350

== ENCOUNTER 2021-01-19 12:00 | Outpatient (CLI) | payer MEDICARE, OTHER ==
--- NOTE | 2021-01-19 17:28 | CONSULTATION NOTE ---
Palliative Care Follow Up - Referral Referring Provider: Jess Riojas PA-C Time of Visit: [id number] Referral setting: Home Referral Reason: Parkinson's Disease/Chestwall pain - Information Sources Records reviewed: Previous records reviewed History/Review of Systems obtained from: Patient, Family (daughter/CHARLEY, Cara) Exam limitations: Clinical condition (dysarthria, STM impiarment, hypophonia) - History of Present Illness Update Brief HPI Update: 85-year-old female with advanced Parkinson's disease with dysarthria, hypophonia, peripheral neuropathy, failure to thrive, dementia, history of hallucinations with continued chest wall pain. The patient is seen within her home setting in her recliner with her daughter/CHARLEY Marroquin present. The end of December 2020 the patient's crying out in pain when she is being transferred to her hospital bed with report to her sternum. There was no bruising that had resulted. The patient was experiencing increased discomfort with turning and repositioning in bed. She was initiated on routine hydrocodone 5mg/acetaminophen 325 mg half a tablet 4 times a day for pain with as needed hydrocodone/acetaminophen on 01/10/2021 when evaluated. This is been controlling the patient's discomfort and she reports that it has lessened in severity. She now only has some grimacing when placed back into bed and her chest wall is elevated off the bed. Now, in the last few days, the patient's daughter reports noting a "bump" on the patient's sternum that was initially uncomfortable to palpation that has been subsiding. Since initiating hydrocodone/need of Aminofen routinely the patient has had increased in bowel movements. She is typically having a bowel movement at least once a day or several times a day. This is resulted in the patient's daughter reducing administration of MiraLAX. The patient remains eating and drinking acceptably. No cough reported with shey ids. The patient's daughter is reporting increased stiffness to her drawl in the morning and her neurologist has adjusted her carbidopa/levodopa. The patient's daughter is no longer administering the immediate release tablet bursting in the morning due to cost. The patient is seen sitting up out of bed in her recliner frail, well groomed. She is alert and engaged. Past Medical History: Patient has a past medical history of Parkinson's disease, osteoporosis, C. difficile, hypertension, hyperlipidemia, depression, anxiety, chronic diarrhea, CKD stage III, GERD, TIA, meningioma of the brain, history of fracture of the left inferior pubis ramus, history of fracture of the humerus, femur and scapula, peripheral neuropathy, cognitive impairment. Social History - Living Situation Living arrangement: At home Living Situation: With family (Daughter Cara and her partner, Fili) Support System: Patient relocated [facility] for additional caregiving services. Her daughter, Cara is her main caregiver. They have a caregiver through [facility] who comes 4 hours on Tuesdays that is provided through the [facility] and they have hired her privately to be present for a few hours on Fridays. [facility] Cara will be out of town for two weeks visiting her daughter. Medications/Allergies - Medications Home Medications: Ambulatory Orders Medication Instructions Recorded Confirmed Triamterene/Hydrochlorothiazid 1 each PO DAILY 06/21/17 05/24/20 [Triamterene-Hctz 37.5-25 mg Cp] Acetaminophen [Tylenol] 650 mg PO Q6H PRN #30 tab 06/23/17 05/24/20 Omeprazole 20 mg PO DAILY 09/26/18 05/24/20 Carbidopa/Levodopa 1.5 tab PO .AT 0900 AND 1300 09/30/18 05/24/20 [Carbidopa-Levodopa 25-100 Tab] Lidocaine Patch 5% [Lidoderm Patch] 1 ea TOP DAILY PRN 09/30/18 05/24/20 Naproxen Sodium 220 mg PO PRN 09/30/18 Loperamide [Imodium] 2 mg PO DAILY PRN 05/08/19 05/24/20 Extra Strength Tincture Cbd 1 drops PO DAILY PM PRN 06/10/19 04/04/20 Potassium Chloride 20 meq PO BID 06/10/19 05/24/20 Carbidopa/Levodopa 1 tab PO QID 12/07/19 05/24/20 [Carbidopa-Levodopa 25-250 Tab] Diclofenac Sodium [Voltaren] 2 g TP TID PRN MDD right hand/left 01/27/20 05/24/20 elbow polyethylene glycoL 3350 [Miralax] 8.5 g PO Q72H 03/07/20 05/24/20 DULoxetine [Cymbalta] 30 mg PO DAILY 07/05/20 07/05/20 Rivastigmine [Exelon] 1.5 mg PO BID 10/03/20 HYDROcod/ACETAM 5/325 [[place] 5/325] 0.5 tab PO Q4H PRN MDD NTE 3gram 11/29/20 11/29/20 of tylenol in 24h lisinopriL [Lisinopril] 5 mg PO DAILY 01/11/21 - Allergies Allergies/Adverse Reactions: Allergies Allergy/AdvReac Type Severity Reaction Status Date / Time latex Allergy Intermediate Hives Verified 09/26/18 11:31 adhesive tape Allergy Itching Verified 09/26/18 17:25 Review of Systems - Constitutional Constitutional: reports: Fatigue (waxes and wanes but more increase reported), Other (right MAC 18.5cm today, 01/19/2021; right MAC 19cm 11/29/2020; previous MAC 19.5cm 09/28/2020). denies: Fever - Eyes Eyes: denies: Blurred vision - Ears, Nose & Throat Ears, Nose & Throat: reports: Hearing loss, Hearing aids, Dentures - Cardiovascular Cardiovascular: reports: Chest pain (chest wall pain with movement now with"bump"). denies: Edema - Respiratory Respiratory: denies: Cough, SOB at rest - Gastrointestinal Gastrointestinal: reports: Good appetite (requires assistance with meals). denies: Constipation (recently has had bowel movements daily, see HPI), Vomiting - Genitourinary Genitourinary: reports: Incontinence. denies: Dysuria - Musculoskeletal Musculoskeletal: reports: Stiffness, Limited range of motion, Assistive devices, Transfer issues - Integumentary Integumentary: reports: Other (bruises easily) - Neurological Neurological: reports: General weakness, Memory problems - Psychiatric Psychiatric: reports: Delusions, Hallucinations (on exolon). denies: Depression, Behavior disturbances - Endocrine Endocrine: denies: Diabetes type 2 - Hematologic/Lymphatic Hematologic/Lymph: reports: Other (No history of recurrent infections) - All Other Systems All Other Systems: reports: Reviewed and negative (daughter provides supplementation of ROS) Physical Exam - Vital Signs Temperature: 36.1 C Pulse Rate: 70 O2 Saturation: 98 Blood Pressure: 143/78 (right wrist) - Physical Exam General Appearance: positive: No acute distress, Alert, Other (resting in recliner, frail and well groomed) Eyes Bilateral: positive: Normal inspection ENT: positive: No signs of dehydration, Other (b/l temporal wasting; +upper dentures) Neck: positive: Trachea midline Cardiovascular: positive: Regular rate & rhythm Respiratory: positive: Chest non-tender, No respiratory distress, Breath sounds nml, Diminished in bases, Other (firm protrusion that is not flucculate noted centrally on chestwall along sternum between breasts appx 3cm in length that is nontender to palpation) Abdomen: positive: Non-tender, Soft, Nml bowel sounds Extremities: positive: No pedal edema, Other (Limited ROM left shoulder; contracture of left hand; b/l feet appear inverted with contracture; +DJD changes to b/l hands) Neurologic/Psychiatric: positive: Oriented x3 (mild STM impairment, more engaged than last evaluation), Weakness, Flat affect, Other (+Dysarthria and hypohonia) Palliative Care - POLST Patient has POLST: Yes POLST Status: DNR, Selective Treatment Pain: Comment (controlled with routine hydrocodone/acetaminophen) Constipation: No - Palliative Care Discussion: The patient developed acute sternal pain at the end of December 2020 and is presently well controlled with hydrocodone/acetaminophen 5 mg / 325 mg half a tablet 4 times daily. She has underlying frailty as well as osteoporosis and potentially a developed a fracture along the sternum. She has now developed an acute abnormality on her sternum that is no longer tender to palpation. Discussed with the patient and daughter/DPOA regarding imaging and given it is extremely taxing for the patient to leave the home environment will defer as well as the goal is to focus on comfort within the home environment and would not wish to pursue any interventions that would be recommended anyway. We will continue hydrocodone 5 mg/acetaminophen 325 mg half a tablet 4 times daily schedule. Patient may have half a tablet hydrocodone/acetaminophen every 4 hours as needed for pain and request to record. The patient continues to show signs and symptoms of further decline due to her dementia and underlying Parkinson's disease. She remains extremely frail and continues to display weight loss with her right MAC now decreased to 18.5 cm. Gently introduced to the patient's daughter role of hospice services and would be appropriate for transfer. However, the patient's daughter although recognizes the gradual decline that has occurred over the last several months wishes to postpone any transfer to hospice services until she returns from her 2-week trip with her own daughter. We will continue to provide support until transition to hospice services. Impression and Recommendations - Palliative Care Impression: This is a devika 85-year-old female with advanced Parkinson's disease with slow, progressive functional decline with cognitive impairment. She developed acute sternal pain after a transfer and has benefited from routine opioid therapy for comfort. She now has a sternal abnormality with potential for possible fracture however, patient and daughter/DPOA declined imaging has would not wish to proceed with any interventions outside of comfort measures. Palliative care will continue to provide support for symptom management, care coordination, anticipatory guidance with transition to hospice when medically appropriate. Recommendations/Counseling Done: 1. Sternal pain, in the setting of osteoporosis and frailty. Now with 3cm firm mass with appearance of pectus carinatum that is no longer tender to palpation. Continue hydrocodone 5 mg/acetaminophen 325 mg half a tablet 4 times daily. Patient may also utilize hydrocodone/acetaminophen 5 mg / 325 mg half a tablet every 4 hours as needed for pain not to exceed 3 g of acetaminophen in 24 hours total. Again, discussed is potential fracture of the sternum there are not interventions and would optimize pain management. Offered imaging today however, both patient and daughter/DPOA decline as goal remains on comfort in the home setting. 2. Constipation. Improved since initiation of her hydrocodone/acetaminophen. Sedentary lifestyle has been contributing. Goal is to have a bowel movement every other day. May reduce utilization of MiraLAX to be administered if no bowel movement in 3 days. Continue to monitor. 3. Protein calorie malnutrition. Secondary to Parkinson's disease. MAC now reduced to 18.5 cm. Continue to encourage snacks in between meals and other items that the patient finds pleasurable. Continues on pured diet. Patient's daughter is aware of risk of dysphagia and potential aspiration pneumonia and presently is not having difficulty with fluids. Given the patient's continued decline would be appropriate to transition to hospice. CC advanced care planning for further details. 4. Hypertension. No cardiac awareness. Reviewed patient's blood pressure log today taken by the patient's daughter. Continue to obtain blood pressure and heart rate weekly and record. Goal blood pressure is less than 150/90 given the patient's advanced age and comorbidities. Has tolerated reduction of li sinopril to 5 mg daily. Continue potassium supplementation and lynnette/HCTZ as prescribed. We will continue to evaluate for dose reduction based on the patient's oral intake and blood pressure monitoring. 5. Parkinson's disease. Advanced, chronic. Progressive. Supportive care and fall precautions. Aspiration precautions. Continue carbidopa/levodopa as ordered by neurology. Patient's daughter continues to note a slow, gradual decline. 6. Advanced care planning. Patient has POLST in place as DN AR with selective interventions. Patient's daughter recognizes that the patient continues to have slow, decline both cognitively and functionally. Given the patient weight loss, dementia, and underlying Parkinson's disease would be appropriate to transition to hospice services for additional support as the goal is on quality of life and comfort measures. Daughter/DPOA is open to this however, with upcoming trip out of town does not wish to explore this with her family and have admission before her leaving. Patient's daughter recognizes that the patient is frail and at risk for substantial sequelae due to her frailty. Will readdress upon daughter's return to the state regarding transition to hospice services. Questions answered and addressed. Total time spent 50 minutes with greater than 50% of this spent in counseling and coordination of care with patient and daughter/DPOA; hospice philosophy; evaluation of sternal pain with possible differentials; review of pain and symptom management and anticipatory guidance. Disclaimer: The chart note was formulated using voice recognition technology and unfortunately sound alike errors may occur.
== END 2021-01-19 12:01 | disposition home or self-care (01) ==
LOC: PC 12:00
PROVIDERS: ATTEND Nurse Practitioner Family
DX: Z51.5 Encounter for palliative care (principal); G20 Parkinson's disease; F02.80 Dementia in other diseases classified elsewhere, unspecified severity, without behavioral disturbance, psychotic disturbance, mood disturbance, and anxiety; F41.9 Anxiety disorder, unspecified; F32.9 Major depressive disorder, single episode, unspecified; I12.9 Hypertensive chronic kidney disease with stage 1 through stage 4 chronic kidney disease, or unspecified chronic kidney disease; N18.30 Chronic kidney disease, stage 3 unspecified; K21.9 Gastro-esophageal reflux disease without esophagitis; E78.5 Hyperlipidemia, unspecified; R07.89 Other chest pain; R47.1 Dysarthria and anarthria; G62.9 Polyneuropathy, unspecified; R62.7 Adult failure to thrive; M81.0 Age-related osteoporosis without current pathological fracture; E46 Unspecified protein-calorie malnutrition; K59.00 Constipation, unspecified; K52.9 Noninfective gastroenteritis and colitis, unspecified; Z91.81 History of falling; Z66 Do not resuscitate; Z86.73 Personal history of transient ischemic attack (TIA), and cerebral infarction without residual deficits
CPT/HCPCS: 99349

== ENCOUNTER 2021-01-27 11:02 | Outpatient (CLI) | payer MEDICARE, OTHER | END 2021-01-27 11:03 | disposition EMS.NT | LOC: EMS 11:02 | DX: S01.81XA Laceration without foreign body of other part of head, initial encounter (principal); W05.0XXA Fall from non-moving wheelchair, initial encounter; Y92.002 Bathroom of unspecified non-institutional (private) residence as the place of occurrence of the external cause ==

== ENCOUNTER 2021-02-06 13:45 | Outpatient (CLI) | payer MEDICARE, OTHER ==
--- NOTE | 2021-02-06 15:53 | CONSULTATION NOTE ---
Palliative Care Follow Up - Referral Referring Provider: Jess Germain PA-C Time of Visit: 4877-6446 Referral setting: Home Referral Reason: Parkinson's Disease/Dementia/Chestwall pain - Information Sources Records reviewed: Previous records reviewed History/Review of Systems obtained from: Patient, Family (daughter/DPOA) Exam limitations: Clinical condition (dysarthria, STM impairment, Hypophonia) - History of Present Illness Update Brief HPI Update: This is an 85-year-old female with advanced Parkinson's disease with dysarthria, hypophonia, peripheral neuropathy, failure to thrive, dementia, history of hallucinations with chest wall pain. The patient is seen in her home setting in the recliner with her daughter/DPOA Cara present. The patient unfortunately sustained a fall from her wheelchair on 01/27 that resulted in her hitting her head with a minor laceration to her right yarsanism and some ecchymosis that are resolving. The patient's family has elected for comfort measures and for the patient to remain at home and EMS was made aware to not transfer the patient to the hospital. Patient today, denies complaints of headaches or dizziness. There have been no increase in hallucinations per the daughter's report. The patient's daughter and primary caregiver, Cara was out of town for 2 weeks and the patient's other daughter, Pema was present providing care. Now, things are back into the usual routine since this past Saturday. During the time away the patient's daughter, Cara notes further increased decline with the patient with increased muscle atrophy, less verbal, and decreased oral intake. The patient continues to consume her meals but the quantity is reduced. Right MAC 18.5 cm today. The patient continues on acetaminophen/hydrocodone 325/5 mg taking half a tablet four times a day. The patient's pain is presently controlled with this regimen. However, upon initial return from the patient's daughter being away the patient was reporting some increased discomfort. More specifically, she was reporting discomfort to her abdomen recently. On note, the patient did not have a bowel movement for approximately 5 days and MiraLAX was initiated. Her last bowel movement was 2 days ago. Patient's daughter to initiate dose of MiraLAX. The patient's daughter is noting some erythema and chafing to the corners of the patient's mouth. The patient has been smacking her lips and doing some increased oral repetitive movements related to her underlying Parkinson's disease. The patient's daughter continues to note increased stiffness in the mornings. The patient's daughter and private caregiver continue to do range of motion exercises first thing in the morning. Patient is seen sitting out of bed in her recliner, frail, well-groomed with noted bilateral temporal wasting more pronounced than last visit. She is alert and engaged. Past Medical History: Patient has a past medical history of Parkinson's disease, osteoporosis, C. difficile, hypertension, hyperlipidemia, depression, anxiety, chronic diarrhea, CKD stage III, GERD, TIA, meningioma of the brain, history of fracture of the left inferior pubis ramus, history of fracture of the humerus, femur and scapula, peripheral neuropathy, cognitive impairment. Not COVID-19 vaccinated. Social History - Living Situation Living arrangement: At home Living Situation: With family (Daughter Cara and her partner, Fili) Support System: Patient relocated [facility] for additional caregiving services from [facility], [place]. She lived in [place] as well. The patient was active into her 70s and was ambulatory into her early 80s before becoming w/c bound. Her daughter, Cara is her main caregiver and DPOA with contact number [phone]. They have a caregiver through [facility] who comes 4 hours on Tuesdays that is provided [facility] and they have hired her privately to be present for a few hours on Fridays. [facility] Cara returned from being out of town for 2 weeks on a trip with her own daughter, Dinora. Medications/Allergies - Medications Home Medications: Ambulatory Orders Medication Instructions Recorded Confirmed Triamterene/Hydrochlorothiazid 0.5 each PO DAILY 06/21/17 05/24/20 [Triamterene-Hctz 37.5-25 mg Cp] Acetaminophen [Tylenol] 650 mg PO Q6H PRN #30 tab 06/23/17 05/24/20 Omeprazole 20 mg PO DAILY 09/26/18 05/24/20 Carbidopa/Levodopa 1.5 tab PO .AT 0900 AND 1300 09/30/18 05/24/20 [Carbidopa-Levodopa 25-100 Tab] Lidocaine Patch 5% [Lidoderm Patch] 1 ea TOP DAILY PRN 09/30/18 05/24/20 Naproxen Sodium 220 mg PO PRN 09/30/18 Loperamide [Imodium] 2 mg PO DAILY PRN 05/08/19 05/24/20 Extra Strength Tincture Cbd 1 drops PO DAILY PM PRN 06/10/19 04/04/20 Potassium Chloride 20 meq PO DAILY 06/10/19 05/24/20 Carbidopa/Levodopa 1 tab PO QID 12/07/19 05/24/20 [Carbidopa-Levodopa 25-250 Tab] Diclofenac Sodium [Voltaren] 2 g TP TID PRN MDD right hand/left 01/27/20 05/24/20 elbow polyethylene glycoL 3350 [Miralax] 8.5 g PO Q72H 03/07/20 05/24/20 DULoxetine [Cymbalta] 30 mg PO DAILY 07/05/20 07/05/20 Rivastigmine [Exelon] 1.5 mg PO BID 10/03/20 HYDROcod/ACETAM 5/325 [Brothers 5/325] 0.5 tab PO Q4H PRN MDD NTE 3gram 11/29/20 11/29/20 of tylenol in 24h lisinopriL [Lisinopril] 5 mg PO DAILY 01/11/21 Hydrocodone/Acetaminophen 0.5 tab PO QID 02/06/21 02/06/21 [Hydrocodone-Acetamin 5-300 mg] Nystatin TP BID MDD x7 days corner of mouth 02/06/21 - Allergies Allergies/Adverse Reactions: Allergies Allergy/AdvReac Type Severity Reaction Status Date / Time latex Allergy Intermediate Hives Verified 09/26/18 11:31 adhesive tape Allergy Itching Verified 09/26/18 17:25 Review of Systems - Constitutional Constitutional: reports: Fatigue, Poor appetite (decrease in appetite, see HPI), Other (right MAC 18.5cm 02/06/2021; right MAC 18.5cm 01/19/2021; right MAC 19cm 11/29/2020; previous MAC 19.5cm 09/28/2020). denies: Fever - Eyes Eyes: denies: Blurred vision - Ears, Nose & Throat Ears, Nose & Throat: reports: Hearing loss, Hearing aids, Dentures - Cardiovascular Cardiovascular: reports: Chest pain (chest wall pain improving with scheduled opioid therapy and decreasing). denies: Edema - Respiratory Respiratory: denies: Cough, SOB at rest - Gastrointestinal Gastrointestinal: reports: Other (+Dysphagia intermittent with modified diet, requires assistance with meals). denies: Constipation ( see HPI), Vomiting - Genitourinary Genitourinary: reports: Incontinence. denies: Dysuria - Musculoskeletal Musculoskeletal: reports: Stiffness, Limited range of motion, Assistive devices, Transfer issues - Integumentary Integumentary: reports: Other (+ecchymosis right yarsanism s/p fall with scab formation; mild erythema to b/l corners of lips c/w angular cheilitis) - Neurological Neurological: reports: General weakness, Memory problems, Other (Increased lip smacking and decreased speech per daughter report upon her return) - Psychiatric Psychiatric: reports: Delusions, Hallucinations (on exolon). denies: Depression, Behavior disturbances - Endocrine Endocrine: denies: Diabetes type 2 - Hematologic/Lymphatic Hematologic/Lymph: reports: Other (No history of recurrent infections) - All Other Systems All Other Systems: reports: Reviewed and negative (daughter provides supplementation of ROS) Physical Exam - Vital Signs Temperature: 36.3 C Pulse Rate: 88 O2 Saturation: 98 (on RA) Blood Pressure: 138/82 (right wrist) - Physical Exam General Appearance: positive: No acute distress, Alert, Other (resting in recliner, frail and well groomed) Eyes Bilateral: positive: Normal inspection ENT: positive: No signs of dehydration, Other (b/l temporal wasting; +upper and lower dentures that are slightly loose; +mild erythema to b/l corners of mouth c/w angular cheilitis) Neck: positive: Trachea midline Cardiovascular: positive: Regular rate & rhythm Respiratory: positive: Chest non-tender, No respiratory distress, Breath sounds nml, Diminished in bases, Other (firm protrusion that is not flucculate noted centrally on chestwall along sternum between breasts appx 3cm in length that is nontender to palpation) Abdomen: positive: Non-tender, Soft, Nml bowel sounds. negative: Distended Skin: positive: Bruising (right yarsanism s/p fall) Extremities: positive: No pedal edema, Other (Limited ROM left shoulder; contracture of left hand; b/l feet appear inverted with contracture; +DJD changes to b/l hands) Neurologic/Psychiatric: positive: Oriented x3 (STM impairment), Weakness, Flat affect, Other (+Dysarthria and hypohonia; decreased speech; became tearful when discussing hospice services) Palliative Care - POLST Patient has POLST: Yes POLST Status: DNR, Comfort Measures Pain: Pain improved (on scheduled hydrocodone/acetaminophen) Tiredness/Fatigue: Mild (1-3) Drowsiness/Sedation: Mild (1-3) Nausea: None Anorexia: Mild (1-3) Sleep: Sleeps well Constipation: Managed, Intermittent constipation Performance Status: Nonambulatory. History of dysphagia. Requires assistance with meals. Recent fall. Incontinent of bladder. PPS 30% - Palliative Care Discussion: The patient continues to show signs and symptoms of further decline due to her underlying dementia and Parkinson's disease that is quite advanced. She is today on evaluation she had increased oral movements that have been not noted on previous evaluations not fully controlled with carbidopa/levodopa. She remains extremely frail and has demonstrated weight loss with reduction of her MAC from 19.5 cm in September 2020 to 18.5 cm in January 2021. She is also had a reduction in her overall oral intake. The patient's daughter/DPOA as well as her primary caregiver upon return from her 2-week vacation is able to note significant decline in the patient's overall wellbeing. In light of the patient's recent fall and EMS looking at transfer to the hospital, the patient herself wishes to stay at home and focus on comfort measures and quality of life. POLST reviewed with patient and daughter/DPOA today and updated as DN AR, comfort measures, and no artificial nutrition by tube. Discussed given the patient's continued decline, protein calorie malnutrition, progression of her Parkinson's disease, and underlying dysphagia would be appropriate to make a transition to hospice services and daughter/DPOA in agreement with this to focus on quality of life and comfort measures within the home environment to have a dignified at home. The patient herself was initially excepting and then became tearful several minutes after the discussion and agreement. Provided comfort and empathetic listening. The patient's son had been on hospice services previously and this may have been a trigger. The patient and her daughter plan on speaking further regarding the is emotions however, wish to proceed with hospice services to have an extra added layer of support within the home environment. Given the patient's continued decline in blood pressure within desired ranges will further reduce her pill burden. Reduce her potassium and chloride from 20 mEq twice daily to 20 mEq daily. We will also reduce her Triamterene/HCTZ 37.5mg/25mg to 1/2 tablet daily with goal blood pressure less than 150/90.nGiven the patient's reduced oral intake this is likely sustainable for the unforeseen future. She has tolerated previous dose reductions in her antihypertensive medications. Impression and Recommendations - Palliative Care Impression: This is a devika 85-year-old female with advanced Parkinson's disease with slow, progressive functional decline with cognitive impairment indicative of Parkinson's dementia, protein calorie malnutrition, and dysphagia. Her stooling. Intraoral pain is presently well controlled with hydrocodone/acetaminophen for comfort. Given her continued weight loss and failure to thrive with a goal to focus on comfort measures within the home environment it will be appropriate to transition to hospice services within the home. Palliative care will continue to provide support for symptom management, care coordination, anticipatory guidance until hospice services are initiated. Recommendations/Counseling Done: 1. Protein calorie malnutrition. Secondary to Parkinson's disease. MAC 18.5 cm down from 19.5 cm in September 2020. Decreased oral intake noted by the patient's daughter. Patient has a history of dysphagia when a modified diet that is pured. Daughter is aware of risk of aspiration pneumonia and patient is presently not having difficulty with fluids. Continue to encourage snacks in between meals and other items that the patient finds pleasurable. Continue to monitor. 2. Constipation. Sedentary lifestyle contributing. Goal is to have a bowel movement every other day. Continue to administer MiraLAX if no bowel movement in 3 days. Request that the patient's daughter administer MiraLAX today. Continue to monitor. 3. Hypertension. No cardiac awareness. Patient has tolerated dose reduction of antihypertensives in the past. Given decreased oral intake will decrease triameterene 37.5mg/HTCZ 25mg to 1/2 tablet daily. Continue lisinopril 5 mg daily. Reduce potassium supplementation to 20 mEq daily. Goal blood pressure is less than 150/90 given the patient's advanced age and comorbidities. Continue to obtain blood pressure and heart rate weekly and record. We will continue to evaluate for dose reduction based on the patient's oral intake and blood pressure monitoring in the future. 4. Sternal pain in the setting of osteoporosis and frailty. Now with a mass centrally of her chest that is no longer tender to palpation status post ini tiated with a transfer in December 2020. Continue hydrocodone 5 mg/acetaminophen 325 mg half a tablet 4 times daily. Patient may also utilize hydrocodone/acetaminophen 5 mg / 325 mg half a tab every 4 hours as needed for pain not to exceed 3 g of acetaminophen in 24 hours total. Patient and daughter wish to focus on comfort within the home environment. 5.Angular Cheilitis. Initiate triamcinolone small amount topically to corners of the mouth twice daily x7 days and then as needed. 6. Parkinson's disease. Advanced. Chronic. Progressive. Supportive care and fall precautions. Aspiration precautions. Continue carbidopa/levodopa as ordered by neurology. 7. Advanced care planning. POLST reviewed today and updated as DN AR with comfort measures with patient and daughter in agreement. Given the patient's weight loss, dementia, Parkinson's disease and continued protein calorie malnutrition by evidence of continued reduction of MAC would be appropriate to transition to hospice services for additional support and avoidance of hospitalization with the goal on quality of life and comfort measures. The patient's daughter is desiring to move forward with this and the patient herself requires comfort and assistance given her emotional visual reaction after some time to process regarding hospice. The patient and her family have prior experience with hospice and normalized the patient's feelings. Moving forward would make recommendations to not utilize the word hospice with the patient and display the team as an extra added layer of support for not only the patient but the daughter as well. Total time spent 65 minutes with greater than 50% of this spent in counseling and coordination of care with patient and daughter/DPOA; review of escalation vs de-escalation of care; hospice philosophy review; review of progression of Parkinson's Disease; POLST updated; review of pain and symptom management and anticipatory guidance. Disclaimer: The chart note was formulated using voice recognition technology and unfortunately sound alike errors may occur.
== END 2021-02-06 13:46 | disposition home or self-care (01) ==
LOC: PC 13:45
PROVIDERS: ATTEND Nurse Practitioner Family
DX: Z51.5 Encounter for palliative care (principal); G20 Parkinson's disease; F02.80 Dementia in other diseases classified elsewhere, unspecified severity, without behavioral disturbance, psychotic disturbance, mood disturbance, and anxiety; R13.10 Dysphagia, unspecified; R07.89 Other chest pain; E46 Unspecified protein-calorie malnutrition; R63.4 Abnormal weight loss; K13.0 Diseases of lips; S01.81XD Laceration without foreign body of other part of head, subsequent encounter; K59.00 Constipation, unspecified; I10 Essential (primary) hypertension; M81.0 Age-related osteoporosis without current pathological fracture; Z79.899 Other long term (current) drug therapy; Z79.891 Long term (current) use of opiate analgesic; Z66 Do not resuscitate; Z91.81 History of falling
CPT/HCPCS: 99350